=== PATIENT | female | born 1970 | race Caucasian/White ===

== ENCOUNTER 2019-03-09 14:59 | Emergency (ER) | payer MEDICARE, MEDICAID, SELFPAY ==
[2019-03-09 15:02] VITALS: BP 164/102; PULSE 78; RESP 12; TEMP 36.5; O2SAT 100
--- NOTE | 2019-03-09 15:17 | ED.GENADUL_ITS ---
Discharge Plan Disposition Patient Disposition: HOME Condition: Improving Discharge Details Chief Complaint: Orthopedic Clinical Impression: Calcific tendinitis of right shoulder Primary Care Provider: Erwin Vale ED Provider: Pawan Trivedi Home Meds and New Rx's Prescriptions: Continued trazodone 50 mg Tablet 100 mg PO QHS PRNRF: 0 venlafaxine [Effexor XR] 150 mg Capsule,Extended Release 24hr 225 mg PO QPM RF: 0 tramadol 50 mg Tablet 50 mg PO Q6H PRNRF: 0 levothyroxine 100 mcg Tablet 100 mcg PO DAILY RF: 0 carbamazepine 200 mg Tablet 100 mg PO DAILY RF: 0 Discharge Instructions Instructions: Tendinitis (ED) Additional Instructions: Follow-up with physical therapy as planned. Use sling next 3 to 5 days time as needed for comfort. Begin gentle range of motion exercises as we discussed. Apply ice 20 minutes at a time 5-6 times daily. May continue the use of tramadol and Tylenol if needed for pain. Return if develop a fever, redness, swelling or any other acute concerns. Stand Alone Forms: Physical Therapy Referral Medical Decision Making 48-year-old female with right shoulder pain for 5 days time. She woke with this and it is worse with movement as well as in particular abduction. She is tender over the humeral head anterolateral. She is tenderness and pain with the empty can/full can test. Concern for bicipital or other acute tendinitis. Must exclude mass or occult fracture. Patient referred for x-ray which reveals calcific tendinitis. Consented for injection with lidocaine and Kenalog for its anti-inflammatory pro perties. I will refer her to physical therapy. She is stable and improving at this time. HPI General Mode of arrival: ambulatory . Date/Time Provider Initiated Documentation: 03/09/19 15:01 . Limitations to Documentation: no limitations . Information obtained by: patient . History of Present Illness 48 year old F presents to the emergency department with the chief complaint of Right shoulder pain for 5 days, described as moderate, Quality is described as dull, and is localized to the right and upper extremity. Patient distal. Patient started experiencing this day(s) and it has been constant. Rest improves symptom(s), Movement worsens symptoms . Patient notes no other symptoms.; denies chest pain, headaches, rash and shortness of breath. Patient did receive the following treatments prior to arrival, NSAID Related Data Home Medications Medication Instructions Recorded Confirmed carbamazepine 100 mg PO DAILY 03/09/19 03/09/19 levothyroxine 100 mcg PO DAILY 03/09/19 03/09/19 tramadol 50 mg PO Q6H PRN 03/09/19 03/09/19 trazodone 100 mg PO QHS PRN 03/09/19 03/09/19 venlafaxine [Effexor XR] 225 mg PO QPM 03/09/19 03/09/19 Allergies Allergy/AdvReac Type Severity Reaction Status Date / Time sumatriptan [From Imitrex] AdvReac Unverified 03/09/19 15:06 General Stated Complaint: Orthopedic PEACE: 4 Review of Systems Narrative: No fall or injury, no swelling, no chest pain or shortness of breath. No recent travel. Denies rash.'s 8 systems reviewed and otherwise negative [facility] Social History Smoking/Tobacco Use Status: Never Alcohol Intake: never Drug use: Never Substance use type: does not use Do you feel safe at home: Yes Do you feel safe in your relationship?: Yes Exam Narrative Exam Narrative: GEN: awake, alert, oriented 3. Pleasant, well groomed, interactive. HEAD: Normocephalic, atraumatic ENT: Mucous membranes moist, oropharynx unremarkable, External ear exam unremarkable EYES: PERRL, EOMI NECK: Full ROM, no GUS, no menigismus CHEST/RESP: Nontender, clear to auscultation bilateral, no wheeze/rhonchi/rales CARDIOVASCULAR: RRR, no murmur, rub griffin. 2+ Rad pulse bilateral ABDOMEN: Soft, nontender, no mass. +Bowel sounds EXT: Motor is graded 5 out of 5 in the bilateral upper extremity. Motor is limited by pain with abduction of the right shoulder. Pain with palpation proximal humeral head antral and lateral. There is pain with open can/empty can test, empty can test with right hand pronated causes pain. Neuro: Grossly normal neurologic exam, conversant, interactive. Psych: Speech fluent, thoughts congruent, affect normal Course Vital Signs Vital signs: Vital Signs Temperature 36.5 C 03/09/19 15:02 Pulse 78 03/09/19 15:02 Respiratory Rate 12 03/09/19 15:02 Blood Pressure 164/102 H 03/09/19 15:02 Pulse Oximetry 100 03/09/19 15:02 Temperature 36.5 C 03/09/19 15:02 Temperature Source Temporal Artery Scan 03/09/19 15:02 Pulse 78 03/09/19 15:02 Respiratory Rate 12 03/09/19 15:02 Respiratory Effort Non-Labored 03/09/19 15:04 Blood Pressure 164/102 H 03/09/19 15:02 Blood Pressure Position Sitting 03/09/19 15:02 Pulse Oximetry 100 03/09/19 15:02 Oxygen Delivery Method Room Air 03/09/19 15:02 Oxygen Flow Rate 0 03/09/19 15:02 Pain Level 5 03/09/19 15:02
--- NOTE | 2019-03-09 15:42 | DI.RAD_ITS ---
EXAM: XR SHOULDER RT COMPLETE 2+V INDICATION: anterolateral pain. COMPARISON: No exams were available for comparison TECHNIQUE: 2D digital imaging was performed. FINDINGS: No acute fracture or dislocation is present. Mild degenerative changes are seen at the acromioclavic ular joint. Calcifications are seen in the soft tissues adjacent to the greater tuberosity likely re flecting calcific tendinitis. Soft tissues are otherwise unremarkable. IMPRESSION: No acute abnormality.
[2019-03-09] MEDS: Triamcinolone 40 MG/ML VIAL IM (15:56)
[2019-03-09 16:00] VITALS: BP 135/75; PULSE 74; RESP 16; TEMP 36.8; O2SAT 99
== END 2019-03-09 16:05 | disposition home or self-care (01) ==
PROVIDERS: Emergency Provider Emergency Medicine; PCP Family Medicine
DX: M75.31 Calcific tendinitis of right shoulder (principal)
CPT/HCPCS: 96372; 99284; 73030; L3650

== ENCOUNTER 2019-03-27 16:00 | Outpatient (REF) | payer MEDICARE, MEDICAID, SELFPAY ==
--- NOTE | 2019-03-27 14:30 | PAPFT_PTH ---
PATIENT: Erin Whitmore LOC: [facility] U#:[id number] AGE/SX: 48/F ROOM: RE03/27/[address]: Erwin Vale MD : 1970 BED: DIS: 03/27/2019 SPEC #: [id number] RECD: 03/27/19 18:39 STATUS: EMIL REQ #: [id number] MILANA: 03/27/19 14:[address]: Erwin Vale DEPT: [facility] Cytology RECD BY: Martha Stern Tissues: 1 - CX/ENDOCX FOR PAP SMEARS Procedures: PAP THIN PREP/UVM Screening HPV DNA PROBE Comments: [id number]
== END 2019-03-27 16:20 ==
LOC: LBN 16:00
PROVIDERS: PCP Family Medicine; Visit Provider Family Medicine
DX: Z12.4 Encounter for screening for malignant neoplasm of cervix (principal)
CPT/HCPCS: 88142; 87624

== ENCOUNTER → 2019-05-13 08:36 | Outpatient (BNVA) | payer MEDICARE, MEDICAID, SELFPAY | PROVIDERS: PCP Family Medicine; Referring Provider Family Medicine; Visit Provider Student in an Organized Health Care Education/Training Program | DX: M75.31 Calcific tendinitis of right shoulder (principal); M75.21 Bicipital tendinitis, right shoulder; M75.51 Bursitis of right shoulder; M75.41 Impingement syndrome of right shoulder; I10 Essential (primary) hypertension | CPT/HCPCS: 99204; 99214 ==

== ENCOUNTER 2019-05-14 10:22 | Outpatient (REF) | payer MEDICARE, MEDICAID, SELFPAY ==
[2019-05-18 12:03] LABS: 2-Hydroxy Ethyl Flurazepam Not Detected ng/mL (Cutoff: 10); 6-monoacetylmorphine Not Detected ng/mL (Cutoff: 25); Alpha-Hydroxy Midazolam Not Detected ng/mL (Cutoff: 10); Alpha-Hydroxy Triazolam Not Detected ng/mL (Cutoff: 10); Alpha-Hydroxyalprazolam Not Detected ng/mL (Cutoff: 10); Alpha-OH-alprazolam Glucuronid Not Detected ng/mL (Cutoff: 50); Alprazolam Not Detected ng/mL (Cutoff: 10); Amphetamines Negative ng/mL (Cutoff: 500); Barbiturates Negative ng/mL (Cutoff: 200); Buprenorphine Not Detected ng/mL (Cutoff: 5); Chlordiazepoxide Not Detected ng/mL (Cutoff: 10); Clobazam Not Detected ng/mL (Cutoff: 10); Clonazepam Not Detected ng/mL (Cutoff: 10); Cocaine Negative ng/mL (Cutoff: 150); Codeine Not Detected ng/mL (Cutoff: 25); Comment Normal; Diazepam Not Detected ng/mL (Cutoff: 10); Dihydrocodeine Not Detected ng/mL (Cutoff: 25); EDDP Not Detected ng/mL (Cutoff: 25); Fentanyl Not Detected ng/mL (Cutoff: 2); Flurazepam Not Detected ng/mL (Cutoff: 10); Hydrocodone Not Detected ng/mL (Cutoff: 25); Hydromorphone Not Detected ng/mL (Cutoff: 25); Hydromorphone-3-beta-glucuroni Not Detected ng/mL (Cutoff: 100); Lorazepam Not Detected ng/mL (Cutoff: 10); Lorazepam Glucuronide Not Detected ng/mL (Cutoff: 50); Meperidine Not Detected ng/mL (Cutoff: 25); Methadone Not Detected ng/mL (Cutoff: 25); Midazolam Not Detected ng/mL (Cutoff: 10); Morphine Not Detected ng/mL (Cutoff: 25); N-Desmethylclobazam Not Detected ng/mL (Cutoff: 200); N-desmethyltapentadol Not Detected ng/mL (Cutoff: 50); Naloxone Not Detected ng/mL (Cutoff: 25); Norfentanyl Not Detected ng/mL (Cutoff: 2); Norhydrocodone Not Detected ng/mL (Cutoff: 25); Normeperidine Not Detected ng/mL (Cutoff: 25); Noroxycodone Not Detected ng/mL (Cutoff: 25); Noroxymorphone Not Detected ng/mL (Cutoff: 25); O-desmethyltramadol Not Detected ng/mL (Cutoff: 25); Oxazepam Glucuronide Not Detected ng/mL (Cutoff: 50); Phencyclidine Negative ng/mL (Cutoff: 25); Prazepam Not Detected ng/mL (Cutoff: 10); Propoxyphene Not Detected ng/mL (Cutoff: 25); Specific Gravity 1.014; Tapentadol Not Detected ng/mL (Cutoff: 25); Temazepam Not Detected ng/mL (Cutoff: 10); Temazepam Glucuronide Not Detected ng/mL (Cutoff: 50); Tetrahydrocannabinol Negative ng/mL (Cutoff: 50); Tramadol Not Detected ng/mL (Cutoff: 25); Triazolam Not Detected ng/mL (Cutoff: 10); Zolpidem Phenyl-4-Carboxy acid Not Detected ng/mL (Cutoff: 10); pH 6.9
== END 2019-05-14 10:42 ==
LOC: NCHCN 10:22
PROVIDERS: PCP Family Medicine; Visit Provider Nurse Practitioner Family
DX: G89.29 Other chronic pain (principal); Z79.891 Long term (current) use of opiate analgesic
CPT/HCPCS: 80307; 80347; 80364

== ENCOUNTER 2019-05-22 03:49 | Outpatient (CLI) | payer MEDICARE, MEDICAID, SELFPAY ==
--- NOTE | 2019-05-22 08:30 | DI.MRI_ITS ---
EXAM: MR UPPER JOINT RT WO CLINICAL HISTORY: LONG HEAD BICEPS TENDINITIS. CALCIFIC TENDINITIS. FAILED CONSERVATIVE TREATMENT, BURSITIS, IMPINGEMENT SYNDROME, M75.51, M75.31, M75.41, M75.21. TECHNIQUE: Multiplanar multisequence MRI was performed. COMPARISON: No exams were available for comparison FINDINGS: There is intermediate signal seen within the supraspinatus tendon. This may represent tendinosis or a partial tear. There is intermediate signal seen within the infraspinatus tendon, which may represent tendinosis or partial tear. The subscapularis and teres minor tendons are unremarkable. Degenerative changes seen at the acromioclavicular joint. Rotator cuff muscles show normal signal an d size. No significant muscular fatty atrophy is present. There is intermediate signal seen in the biceps tendon suggesting tendinosis. There is some thinning of the tendon in the bicipital groove. Labrum is grossly unremarkable on this noncontrast examination. The glenohumeral joint is unremarkable. Mild degenerative signal changes are seen at the acromioclavicular joint. There is no evidence of an occult fracture or avascular necrosis. There is increased signal seen within the subacromial bursa suspicious for bursitis. No soft tissue mass is appreciated. The coracoclavicular ligament is intact. IMPRESSION: 1. Abnormal signal seen within the supraspinatus and infraspinatus tendons suspicious for tendinosis or partial tear. 2. Flattening and intermediate signal seen within the biceps tendon, which may represent tendinosis. 3. Degenerative changes at the AC joint. Findings suspicious for subacromial bursitis.
== END 2019-05-22 04:09 ==
PROVIDERS: PCP Family Medicine; Visit Provider Student in an Organized Health Care Education/Training Program
DX: M75.81 Other shoulder lesions, right shoulder (principal); M75.22 Bicipital tendinitis, left shoulder; M19.011 Primary osteoarthritis, right shoulder; M75.51 Bursitis of right shoulder
CPT/HCPCS: 73221

== ENCOUNTER 2019-06-01 14:40 | Emergency (ER) | payer MEDICARE, MEDICAID, SELFPAY ==
[2019-06-01 14:53] VITALS: BP 147/72; PULSE 73; RESP 16; TEMP 36.5; O2SAT 99
--- NOTE | 2019-06-01 15:15 | DI.RAD_ITS ---
EXAM: XR HEEL RT OS CALCIS CLINICAL HISTORY: r/o fracture vs spur vs foreign body TECHNIQUE: COMPARISON: No exams were available for comparison FINDINGS: Two views were obtained. There is and osteophyte at the site of attachment of the Achilles tendon on the calcaneus. No other bony or soft tissue abnormality seen. IMPRESSION:
--- NOTE | 2019-06-01 15:19 | W.ED.GENAD ---
Discharge Plan Disposition Patient Disposition: HOME Condition: Stable Discharge Details Chief Complaint: Orthopedic Clinical Impression: Heel spur Primary Care Provider: Antonieta Ramirez ED Provider: Jessa Norwood Home Meds and New Rx's Prescriptions: Continued venlafaxine [Effexor XR] 150 mg capsule,extended release 24hr 300 mg PO DAILY RF: 0 levothyroxine 50 mcg capsule 50 mcg PO DAILY Qty: 90 RF: 3 tramadol 50 mg tablet 50 mg PO QID MDD 4 tablets/day PRN (Reason: pain) 28 Days Qty: 112 RF: 0 trazodone 150 mg tablet 300 mg PO QHS RF: 0 carbamazepine 200 mg capsule, ER multiphase 12 hr 400 mg PO BID RF: 0 ibuprofen 800 mg tablet 800 mg PO Q8H PRN (Reason: pain) Qty: 90 RF: 2 Discharge Instructions Instructions: Heel Spur (ED) Additional Instructions: Rest, ice, and elevate the affected area as much as possible. Alternate tylenol and motrin as needed and directed for pain. Follow-up with your primary care doctor in 1 week. Follow-up with your scheduled appointment with the machine fur cleaner Dr. Verduzco in July. You will receive a call from care management who will attempt to get you an earlier appointment with Dr. Verduzco if possible. Return to the emergency department with any worsening or new concerning symptoms. Referrals: Javier Verduzco DPM [[facility] STAFF PHYSICIAN] - Discharge Data Discharge Physician: Jessa Norwood Medical Decision Making 48-year-old female presents with right heel pain for the past few weeks. She states she fell on ice a few weeks ago and has had right heel pain since then. She states she is having difficulty weightbearing on her heel due to pain. She does have a history of plantar fasciitis in her left heel but states this feels different from that. She denies any ankle pain. She states the pain is not worse first thing in the morning. Right foot and ankle are normal to inspection. She has mild tenderness palpation of right heel. She is neurovascular intact. Patient declined pain medication here. A right heel x-ray noted a bone spur. Discussed with patient that this could be the source of her pain or a contusion or sprain. She was advised on the importance of rice. She has an appointment with Dr. Verduzco in July. Patient was placed on care management list to arrange for earlier follow-up appointment if possible. She was advised to purchase [id number] cushioning for support on her heel in addition to a cane to help with reducing weightbearing on her heel. Medical Records Medical records reviewed: Yes I reviewed the patient's medical records. Imaging Data Radiologic Study: Radiologist's impression: XR HEEL RT OS CALCIS CLINICAL HISTORY: r/o fracture vs spur vs foreign body TECHNIQUE: COMPARISON: No exams were available for comparison FINDINGS: Two views were obtained. There is and osteophyte at the site of attachment of the Achilles tendon on the calcaneus. No other bony or soft tissue abnormality seen. HPI General Mode of arrival: ambulatory. Date/Time Provider Initiated Documentation: 06/01/19 15:08. Limitations to Documentation: no limitations. Information obtained by: patient. History of Present Illness 48 year old F presents to the emergency department with the chief complaint of R heel pain , Quality is described as stabbing and aching, Patient reports no radiation. Patient started experiencing this week(s) (3) and it has been constant. Rest improves symptom(s), Other factors that worsen symptoms (weight bearing on heel) . Patient notes no other symptoms.. Patient did receive the following treatments prior to arrival, none Related Data Home Medications Medication Instructions Recorded Confirmed levothyroxine 50 mcg capsule 50 mcg PO DAILY #90 cap 03/27/19 06/01/19 carbamazepine 200 mg 400 mg PO BID cap 04/15/19 06/01/19 capsule,extended release [id number] venlafaxine 150 mg 300 mg PO DAILY cap 04/15/19 06/01/19 capsule,extended release 24 hr ibuprofen 800 mg tablet 800 mg PO Q8H PRN #90 tab 04/17/19 06/01/19 tramadol 50 mg tablet 50 mg PO QID PRN 28 Days #112 tab 05/14/19 06/01/19 MDD 4 tablets/day trazodone 150 mg tablet 300 mg PO QHS tab 05/27/19 06/01/19 Previous Rx's Medication Instructions Recorded levothyroxine 50 mcg capsule 50 mcg PO DAILY #90 cap 03/27/19 ibuprofen 800 mg tablet 800 mg PO Q8H PRN #90 tab 04/17/19 tramadol 50 mg tablet 50 mg PO QID PRN 28 Days #112 tab 05/14/19 MDD 4 tablets/day Allergies Allergy/AdvReac Type Severity Reaction Status Date / Time gabapentin AdvReac Mild Unverified 06/01/19 14:57 sumatriptan [From Imitrex] AdvReac Verified 06/01/19 14:57 General Stated Complaint: Orthopedic PEACE: 3 Review of Systems All systems reviewed & are unremarkable except as noted in HPI and below PFSH Medical History Bipolar disorder, unspecified (Acute) Cryptogenic sensory polyneuropathy (Acute) History of gastrectomy (Acute) 07/2013 Hypertension (Chronic) Hypothyroid (Chronic) Insomnia (Acute) Plantar fasciitis (Acute) Polycystic ovarian disease (Acute) Sleep apnea (Acute) Urinary incontinence (Acute) Surgical History H/O arthroscopy of knee (Acute) 2000 H/O exploratory laparotomy (Acute) 1987 S/P cholecystectomy (Acute) 2000 S/P endoscopy (Acute) 2012 S/P gastric bypass (Acute) Laparoscopic sleeve S/P removal of ovarian cyst (Acute) S/P tubal ligation (Acute) 1992 Family History Mother Alcohol abuse Depression Diabetes Hypertension Father Alcohol abuse Cancer Heart disease Hypertension Sister Alcohol abuse Depression Hypertension Substance abuse Brother Alcohol abuse Substance abuse Brother No problems noted. Brother Depression Son No problems noted. Daughter Alcohol abuse Depression Substance abuse Social History Smoking/Tobacco Use Status: Former Tobacco Use Tobacco: How many years used: 6 Second Hand Exposure: Yes Alcohol Intake: never Drug use: Never Substance use type: does not use Caregiver/Support person: No Household members: family Housing: apartment Communication Needs: None Do you need help understanding health information?: Rarely Pets and animals: Yes Pets and animals: dog(s) Sexually active: Yes Do you think of yourself as: straight/heterosexual Current gender identity: female What is your relationship status?: How often do you talk on the phone with friends or family?: three or more times per week How often do you get together with friends or relatives?: three or more times per week How often do you attend methodist or jainism services?: decline to answer Do you belong to any clubs or organized social groups?: no Panel score (0-1 are the most socially isolated patients): 1 What type of physical activity do you participate in: none Frequency: does not exercise Renea/Protestant: Lutheran Special renea needs: No Seatbelt use: always Helmet use: Yes Helmet use: always Drive intox or ride w/intox wrecker driver: No Do you feel safe at home: Yes Do you feel safe in your relationship?: Yes Exam Const General: cooperative, healthy appearing and no acute distress HENMT Head: normal to inspection Mouth: oral mucosae normal Eyes General: appearance normal, both eyes and all related structures Neck Neck: normal visual inspection Resp Effort & Inspection: normal respiratory effort and able to speak in complete sentences Cardio Rate: regular rate Skin General skin exam: no rashes or lesions noted Neuro General: alert, awake and oriented x3 Motor: muscle tone normal throughout Extrem General: normal to inspection and full ROM Other: Minimal tenderness to palpation of right heel. Right heel appears normal to inspection without edema, erythema, ecchymosis, lesions, rash or evidence of trauma. Right DP and PT pulses intact. No tenderness to palpation of right ankle. Right ankle and foot normal to inspection. No deformities noted. Psych Appearance: grossly normal Affect: normal affect Course Vital Signs Vital signs: Vital Signs Temperature 97.7 F 06/01/19 14:53 Pulse 73 06/01/19 14:53 Respiratory Rate 16 06/01/19 14:53 Blood Pressure 147/72 H 06/01/19 14:53 Pulse Oximetry 99 06/01/19 14:53 Temperature 97.7 F 06/01/19 14:53 Temperature Source Skin 06/01/19 14:53 Pulse 73 06/01/19 14:53 Respiratory Rate 16 06/01/19 14:53 Respiratory Effort 06/01/19 14:57 Blood Pressure 147/72 H 06/01/19 14:53 Blood Pressure Position Sitting 06/01/19 14:53 Pulse Oximetry 99 06/01/19 14:53 Oxygen Delivery Method Room Air 06/01/19 14:53 Oxygen Flow Rate 0 06/01/19 14:53 Pain Level 8 06/01/19 14:53 Comment 06/01/19 14:53
== END 2019-06-01 16:20 | disposition home or self-care (01) ==
PROVIDERS: Emergency Provider Physician Assistant; PCP Nurse Practitioner Family
DX: M77.31 Calcaneal spur, right foot (principal); W00.0XXA Fall on same level due to ice and snow, initial encounter; I10 Essential (primary) hypertension
CPT/HCPCS: 99283; 73650

== ENCOUNTER → 2019-06-03 08:33 | Outpatient (BNVA) | payer MEDICARE, MEDICAID, SELFPAY | PROVIDERS: PCP Nurse Practitioner Family; Referring Provider Family Medicine; Visit Provider Student in an Organized Health Care Education/Training Program | DX: M75.31 Calcific tendinitis of right shoulder (principal); M75.21 Bicipital tendinitis, right shoulder; M75.51 Bursitis of right shoulder; M75.41 Impingement syndrome of right shoulder | CPT/HCPCS: 20610; 99214; J1030 ==

== ENCOUNTER → 2019-06-17 10:21 | Outpatient (BNVA) | payer MEDICARE, MEDICAID, SELFPAY | PROVIDERS: PCP Nurse Practitioner Family; Referring Provider Nurse Practitioner Family; Visit Provider Nurse Practitioner Gerontology | DX: N39.42 Incontinence without sensory awareness (principal); I10 Essential (primary) hypertension | CPT/HCPCS: 81003; 99204; 99215 ==

== ENCOUNTER 2019-08-24 08:26 | Outpatient (REF) | payer MEDICARE, MEDICAID, SELFPAY ==
[2019-08-28 02:08] LABS: 2-Hydroxy Ethyl Flurazepam Not Detected ng/mL (Cutoff: 10); 6-monoacetylmorphine Not Detected ng/mL (Cutoff: 25); Alpha-Hydroxy Midazolam Not Detected ng/mL (Cutoff: 10); Alpha-Hydroxy Triazolam Not Detected ng/mL (Cutoff: 10); Alpha-Hydroxyalprazolam Not Detected ng/mL (Cutoff: 10); Alpha-OH-alprazolam Glucuronid Not Detected ng/mL (Cutoff: 50); Alprazolam Not Detected ng/mL (Cutoff: 10); Amphetamines Negative ng/mL (Cutoff: 500); Barbiturates Negative ng/mL (Cutoff: 200); Buprenorphine Not Detected ng/mL (Cutoff: 5); Chlordiazepoxide Not Detected ng/mL (Cutoff: 10); Clobazam Not Detected ng/mL (Cutoff: 10); Clonazepam Not Detected ng/mL (Cutoff: 10); Cocaine Negative ng/mL (Cutoff: 150); Codeine Not Detected ng/mL (Cutoff: 25); Comment Normal; Creatinine, U 119.7 mg/dL; Diazepam Not Detected ng/mL (Cutoff: 10); Dihydrocodeine Not Detected ng/mL (Cutoff: 25); EDDP Not Detected ng/mL (Cutoff: 25); Fentanyl Not Detected ng/mL (Cutoff: 2); Flurazepam Not Detected ng/mL (Cutoff: 10); Hydrocodone Not Detected ng/mL (Cutoff: 25); Hydromorphone Not Detected ng/mL (Cutoff: 25); Hydromorphone-3-beta-glucuroni Not Detected ng/mL (Cutoff: 100); Lorazepam Not Detected ng/mL (Cutoff: 10); Lorazepam Glucuronide Not Detected ng/mL (Cutoff: 50); Meperidine Not Detected ng/mL (Cutoff: 25); Methadone Not Detected ng/mL (Cutoff: 25); Midazolam Not Detected ng/mL (Cutoff: 10); Morphine Not Detected ng/mL (Cutoff: 25); N-Desmethylclobazam Not Detected ng/mL (Cutoff: 200); N-desmethyltapentadol Not Detected ng/mL (Cutoff: 50); Naloxone Not Detected ng/mL (Cutoff: 25); Norfentanyl Not Detected ng/mL (Cutoff: 2); Norhydrocodone Not Detected ng/mL (Cutoff: 25); Normeperidine Not Detected ng/mL (Cutoff: 25); Noroxycodone Not Detected ng/mL (Cutoff: 25); Noroxymorphone Not Detected ng/mL (Cutoff: 25); O-desmethyltramadol Present ng/mL (Cutoff: 25); Oxazepam Glucuronide Not Detected ng/mL (Cutoff: 50); Phencyclidine Negative ng/mL (Cutoff: 25); Prazepam Not Detected ng/mL (Cutoff: 10); Propoxyphene Not Detected ng/mL (Cutoff: 25); Tapentadol Not Detected ng/mL (Cutoff: 25); Temazepam Not Detected ng/mL (Cutoff: 10); Temazepam Glucuronide Not Detected ng/mL (Cutoff: 50); Tetrahydrocannabinol Negative ng/mL (Cutoff: 50); Tramadol Present ng/mL (Cutoff: 25); Triazolam Not Detected ng/mL (Cutoff: 10); Zolpidem Phenyl-4-Carboxy acid Not Detected ng/mL (Cutoff: 10); pH 8.4
== END 2019-08-24 08:46 ==
LOC: LBN 08:26
PROVIDERS: PCP Family Medicine; Visit Provider Nurse Practitioner Family
DX: G89.29 Other chronic pain (principal); Z79.891 Long term (current) use of opiate analgesic
CPT/HCPCS: 80307; 80347; 80364

== ENCOUNTER 2019-09-01 09:36 | Outpatient (CLI) | payer MEDICARE, MEDICAID, SELFPAY ==
--- NOTE | 2019-09-01 08:00 | DI.RAD_ITS ---
EXAM: XR SHOULDER LT COMPLETE 2+V CLINICAL HISTORY: true ap and axillary left shoulder TECHNIQUE: 2D digital imaging was performed. COMPARISON: No exams were available for comparison FINDINGS: There is some spurring at the tip of the acromion. The glenohumeral joint space is well maintained. There is minimal spurring at the glenoid. Humeral head is normally positioned. No tendon or joint space calcifications are seen. IMPRESSION: Mild degenerative changes.
== END 2019-09-01 09:56 ==
PROVIDERS: PCP Family Medicine; Referring Provider Family Medicine; Visit Provider Student in an Organized Health Care Education/Training Program
DX: M25.512 Pain in left shoulder (principal); M19.012 Primary osteoarthritis, left shoulder
CPT/HCPCS: 20610; 99214; 73030; J1030

== ENCOUNTER 2019-09-25 03:40 | Outpatient (CLI) | payer MEDICARE, MEDICAID, SELFPAY ==
[2019-09-25 08:06] LABS: Abs Immature Grans 0.01 k/cumm (0.0-0.09); Absolute Basophil Count 0.03 k/cumm (0.0-0.2); Absolute Eosinophil Count 0.16 k/cumm (0.0-0.7); Absolute Lymphocyte Count 2.03 k/cumm (1.2-3.4); Absolute Monocyte Count 0.55 k/cumm (0.11-0.7); Absolute Neutrophil Count 2.91 k/cumm (1.2-6.7); Basophils % 0.5; Eosinophils % 2.8; HCT 39.8 % (36.0-46.0); HGB 13.4 g/dL (12.0-15.5); Immature Grans % 0.2 %; Lymphocytes % 35.7; Mean Corp. HGB Concentration 33.7 g/dL (32.0-36.0); Mean Corpuscular Hemoglobin 30.5 pg (27.0-33.0); Mean Corpuscular Volume 90.5 fL (80-95); Mean Platelet Volume 10.2 fL (8.0-11.0); Monocytes % 9.7; Neutrophils % 51.1; Platelet Count 249 x1000/uL (130-400); RBC Distribution Width 12.8 % (11.7-14.6); White Blood Cell Count 5.69 k/cumm (4.4-10.8)
[2019-09-25 08:33] LABS: ALT 21 U/L (14-59); AST 16 U/L (15-37); Albumin 3.5 g/dL (3.4-5.0); Alkaline Phosphatase 108 U/L (46-116); Anion Gap 6.1 mmol/L (3-11); BUN 14 mg/dL (7-18); Bilirubin, Total 0.2 mg/dL (0.2-1.0); CO2 30.9 mmol/L (21.0-32.0); CREATININE 0.73 mg/dL (0.55-1.02); Calcium 8.8 mg/dL (8.5-10.1); Chloride 103 mmol/L (98-107); Glucose 81 mg/dL (74-106); Potassium 3.7 mmol/L (3.5-5.1); Sodium 140 mmol/L (136-145); Total Protein 7.2 g/dL (6.4-8.2)
[2019-09-25 08:39] LABS: Hemoglobin A1C 5.4 % (3.8-5.6)
[2019-09-25 09:07] LABS: FREE T4 0.61 ng/dL (0.76-1.46)
[2019-09-25 11:59] LABS: Calculated LDL 136 mg/dL (<100); Cholesterol 244 mg/dL (<200); HDL Cholesterol 92 mg/dL (40-60); TROPONIN-I 9.5 ug/mL (4.0-12.0); Triglyceride 82 mg/dL (<150)
== END 2019-09-25 04:00 ==
PROVIDERS: Nurse Practitioner Family; PCP Nurse Practitioner Family; Visit Provider Nurse Practitioner Family
DX: E55.9 Vitamin D deficiency, unspecified (principal); E03.9 Hypothyroidism, unspecified; E78.5 Hyperlipidemia, unspecified; F31.9 Bipolar disorder, unspecified; Z51.81 Encounter for therapeutic drug level monitoring; Z79.899 Other long term (current) drug therapy; E66.9 Obesity, unspecified
CPT/HCPCS: 36415; 80053; 80061; 82306; 80156; 83036; 84439; 84443; 85025

== ENCOUNTER 2019-11-16 07:05 | Outpatient (CLI) | payer MEDICARE, MEDICAID, SELFPAY ==
[2019-11-16 07:40] LABS: Abs Immature Grans 0.02 10^3/uL (0.0-0.06); Absolute Basophil Count 0.03 10^3/uL (0.0-0.2); Absolute Eosinophil Count 0.16 10^3/uL (0.0-0.7); Absolute Lymphocyte Count 2.12 10^3/uL (1.2-3.4); Absolute Monocyte Count 0.58 10^3/uL (0.1-0.8); Absolute Neutrophil Count 2.74 10^3/uL (1.2-6.7); Basophils % 0.5; Eosinophils % 2.8; HCT 39.6 % (36.0-46.0); HGB 13.1 g/dL (11.2-15.7); Immature Grans % 0.4; Lymphocytes % 37.5; MCH 30.5 pg (27.0-33.0); MCHC 33.1 % (32.0-36.0); MCV 92.1 fL (80-95); MPV 10.5 fL (8.0-11.0); Monocytes % 10.3; Neutrophils % 48.5; Nucleated RBC 0 %; Platelet Count 275 10^3/uL (130-400); RDW 12.8 % (11.7-14.6); RDW-SD 42.8 fL; WBC 5.65 10^3/uL (4.4-10.8)
[2019-11-16 08:24] LABS: ALT 21 U/L (14-59); AST 16 U/L (15-37); Albumin 3.4 g/dL (3.4-5.0); Alkaline Phosphatase 102 U/L (46-116); Anion Gap 10.8 mmol/L (3-11); BUN 11 mg/dL (7-18); Bilirubin, Total 0.3 mg/dL (0.2-1.0); CO2 28.2 mmol/L (21.0-32.0); Calcium 8.6 mg/dL (8.5-10.1); Chloride 104 mmol/L (98-107); Glucose 88 mg/dL (74-106); Potassium 3.7 mmol/L (3.5-5.1); Sodium 143 mmol/L (136-145); TROPONIN-I 9.8 ug/mL (4.0-12.0); TSH 4.35 uIU/mL (0.36-3.74); Total Protein 6.8 g/dL (6.4-8.2)
== END 2019-11-16 07:25 ==
PROVIDERS: PCP Nurse Practitioner Family; Visit Provider Nurse Practitioner Family
DX: F31.9 Bipolar disorder, unspecified (principal); Z79.899 Other long term (current) drug therapy; Z51.81 Encounter for therapeutic drug level monitoring; E03.9 Hypothyroidism, unspecified
CPT/HCPCS: 36415; 80053; 80156; 84443; 85025

== ENCOUNTER 2019-12-02 00:55 | Outpatient (CLI) | payer MEDICARE, MEDICAID, SELFPAY ==
--- NOTE | 2019-12-02 08:24 | DI.MAMMO_ITS ---
EXAM: MAMMO SCREENING CLINICAL HISTORY: screening,Z12.39 TECHNIQUE: Mammograms were interpreted according to the usual protocol including computer analysis w [employer] CAD system, tomosynthesis and C-view imaging. COMPARISON: FINDINGS: The breasts are of moderate density with fairly symmetrical distribution of fibroglandular tissue. N o dominant mass or clumped microcalcification is identified in either breast. Current examination is compared with previous examinations including September 2018 and there has been no gross interval change in appearance in comparison with previous studies. IMPRESSION: No specific evidence of malignancy at this time. Routine screening examinations are suggested at ye jenny intervals in this age group according to the ACS ACR guidelines. BI-RADS Cat 1 - Negative Breast Density - Category B - Scattered areas of fibroglandular density
== END 2019-12-02 01:15 ==
PROVIDERS: PCP Nurse Practitioner Family; Visit Provider Nurse Practitioner Family
DX: Z12.31 Encounter for screening mammogram for malignant neoplasm of breast (principal)
CPT/HCPCS: 77063; 77067

== ENCOUNTER 2019-12-18 02:44 | Outpatient (CLI) | payer MEDICARE, MEDICAID, SELFPAY ==
[2019-12-18 09:50] LABS: TSH (W/Ref FT4) 3.94 uIU/mL (0.36-3.74)
[2019-12-18 10:12] LABS: FREE T4 0.63 ng/dL (0.76-1.46)
== END 2019-12-18 03:04 ==
PROVIDERS: PCP Nurse Practitioner Family; Visit Provider Nurse Practitioner Family
DX: E03.9 Hypothyroidism, unspecified (principal)
CPT/HCPCS: 36415; 84439; 84443

== ENCOUNTER 2019-12-21 09:34 | Outpatient (REF) | payer MEDICARE, MEDICAID, SELFPAY ==
[2019-12-26 15:54] LABS: 2-Hydroxy Ethyl Flurazepam Not Detected ng/mL (Cutoff: 10); 6-monoacetylmorphine Not Detected ng/mL (Cutoff: 25); Alpha-Hydroxy Midazolam Not Detected ng/mL (Cutoff: 10); Alpha-Hydroxy Triazolam Not Detected ng/mL (Cutoff: 10); Alpha-Hydroxyalprazolam Not Detected ng/mL (Cutoff: 10); Alpha-OH-alprazolam Glucuronid Not Detected ng/mL (Cutoff: 50); Alprazolam Not Detected ng/mL (Cutoff: 10); Amphetamines Negative ng/mL (Cutoff: 500); Barbiturates Negative ng/mL (Cutoff: 200); Buprenorphine Not Detected ng/mL (Cutoff: 5); Chlordiazepoxide Not Detected ng/mL (Cutoff: 10); Clobazam Not Detected ng/mL (Cutoff: 10); Clonazepam Not Detected ng/mL (Cutoff: 10); Cocaine Negative ng/mL (Cutoff: 150); Codeine Not Detected ng/mL (Cutoff: 25); Comment Normal; Creatinine, U 203.5 mg/dL; Diazepam Not Detected ng/mL (Cutoff: 10); Dihydrocodeine Not Detected ng/mL (Cutoff: 25); EDDP Not Detected ng/mL (Cutoff: 25); Fentanyl Not Detected ng/mL (Cutoff: 2); Flurazepam Not Detected ng/mL (Cutoff: 10); Hydrocodone Not Detected ng/mL (Cutoff: 25); Hydromorphone Not Detected ng/mL (Cutoff: 25); Hydromorphone-3-beta-glucuroni Not Detected ng/mL (Cutoff: 100); Lorazepam Not Detected ng/mL (Cutoff: 10); Lorazepam Glucuronide Not Detected ng/mL (Cutoff: 50); Meperidine Not Detected ng/mL (Cutoff: 25); Methadone Not Detected ng/mL (Cutoff: 25); Midazolam Not Detected ng/mL (Cutoff: 10); Morphine Not Detected ng/mL (Cutoff: 25); N-Desmethylclobazam Not Detected ng/mL (Cutoff: 200); N-desmethyltapentadol Not Detected ng/mL (Cutoff: 50); Naloxone Not Detected ng/mL (Cutoff: 25); Norhydrocodone Not Detected ng/mL (Cutoff: 25); Normeperidine Not Detected ng/mL (Cutoff: 25); Noroxycodone Not Detected ng/mL (Cutoff: 25); Noroxymorphone Not Detected ng/mL (Cutoff: 25); O-desmethyltramadol Present ng/mL (Cutoff: 25); Oxazepam Glucuronide Not Detected ng/mL (Cutoff: 50); Phencyclidine Negative ng/mL (Cutoff: 25); Prazepam Not Detected ng/mL (Cutoff: 10); Propoxyphene Not Detected ng/mL (Cutoff: 25); Specific Gravity 1.011; Tapentadol Not Detected ng/mL (Cutoff: 25); Temazepam Not Detected ng/mL (Cutoff: 10); Temazepam Glucuronide Not Detected ng/mL (Cutoff: 50); Tetrahydrocannabinol Negative ng/mL (Cutoff: 50); Tramadol Present ng/mL (Cutoff: 25); Triazolam Not Detected ng/mL (Cutoff: 10); Zolpidem Phenyl-4-Carboxy acid Not Detected ng/mL (Cutoff: 10); pH 7.3
== END 2019-12-21 09:54 ==
LOC: LBN 09:34
PROVIDERS: PCP Nurse Practitioner Family; Visit Provider Nurse Practitioner Family
DX: Z79.891 Long term (current) use of opiate analgesic (principal)
CPT/HCPCS: 80307; 80347; 80364

== ENCOUNTER 2020-01-13 01:21 | Outpatient (CLI) | payer MEDICARE, MEDICAID, SELFPAY | END 2020-01-13 01:41 | PROVIDERS: PCP Nurse Practitioner Family; Visit Provider Nurse Practitioner Family | DX: F31.9 Bipolar disorder, unspecified (principal); Z79.899 Other long term (current) drug therapy; E03.9 Hypothyroidism, unspecified | CPT/HCPCS: 36415; 84443 ==

== ENCOUNTER → 2020-03-01 10:04 | Outpatient (BNVA) | payer MEDICARE, MEDICAID, SELFPAY | PROVIDERS: PCP Nurse Practitioner Family; Referring Provider Nurse Practitioner Family; Visit Provider Student in an Organized Health Care Education/Training Program | DX: M75.31 Calcific tendinitis of right shoulder (principal); M75.21 Bicipital tendinitis, right shoulder; M75.51 Bursitis of right shoulder; M75.41 Impingement syndrome of right shoulder; M75.42 Impingement syndrome of left shoulder; M75.22 Bicipital tendinitis, left shoulder; M75.52 Bursitis of left shoulder | CPT/HCPCS: 99213 ==

== ENCOUNTER 2020-03-15 08:55 | Outpatient (REF) | payer MEDICARE, MEDICAID, SELFPAY ==
[2020-03-17 13:55] LABS: 2-Hydroxy Ethyl Flurazepam Not Detected ng/mL (Cutoff: 10); 6-monoacetylmorphine Not Detected ng/mL (Cutoff: 25); Alpha-Hydroxy Midazolam Not Detected ng/mL (Cutoff: 10); Alpha-Hydroxy Triazolam Not Detected ng/mL (Cutoff: 10); Alpha-Hydroxyalprazolam Not Detected ng/mL (Cutoff: 10); Alpha-OH-alprazolam Glucuronid Not Detected ng/mL (Cutoff: 50); Alprazolam Not Detected ng/mL (Cutoff: 10); Amphetamines Presumptive Positive ng/mL (Cutoff: 500); Barbiturates Negative ng/mL (Cutoff: 200); Buprenorphine Not Detected ng/mL (Cutoff: 5); Chlordiazepoxide Not Detected ng/mL (Cutoff: 10); Clobazam Not Detected ng/mL (Cutoff: 10); Clonazepam Not Detected ng/mL (Cutoff: 10); Cocaine Negative ng/mL (Cutoff: 150); Codeine Not Detected ng/mL (Cutoff: 25); Comment Normal; Creatinine, U 262.6 mg/dL; Diazepam Not Detected ng/mL (Cutoff: 10); Dihydrocodeine Not Detected ng/mL (Cutoff: 25); EDDP Not Detected ng/mL (Cutoff: 25); Fentanyl Not Detected ng/mL (Cutoff: 2); Flurazepam Not Detected ng/mL (Cutoff: 10); Hydrocodone Not Detected ng/mL (Cutoff: 25); Hydromorphone Not Detected ng/mL (Cutoff: 25); Hydromorphone-3-beta-glucuroni Not Detected ng/mL (Cutoff: 100); Lorazepam Not Detected ng/mL (Cutoff: 10); Lorazepam Glucuronide Not Detected ng/mL (Cutoff: 50); Meperidine Not Detected ng/mL (Cutoff: 25); Methadone Not Detected ng/mL (Cutoff: 25); Midazolam Not Detected ng/mL (Cutoff: 10); Morphine Not Detected ng/mL (Cutoff: 25); N-Desmethylclobazam Not Detected ng/mL (Cutoff: 200); N-desmethyltapentadol Not Detected ng/mL (Cutoff: 50); Naloxone Not Detected ng/mL (Cutoff: 25); Norhydrocodone Not Detected ng/mL (Cutoff: 25); Normeperidine Not Detected ng/mL (Cutoff: 25); Noroxycodone Not Detected ng/mL (Cutoff: 25); Noroxymorphone Not Detected ng/mL (Cutoff: 25); O-desmethyltramadol Present ng/mL (Cutoff: 25); Oxazepam Glucuronide Not Detected ng/mL (Cutoff: 50); Phencyclidine Presumptive Positive ng/mL (Cutoff: 25); Prazepam Not Detected ng/mL (Cutoff: 10); Propoxyphene Not Detected ng/mL (Cutoff: 25); Specific Gravity 1.022; Tapentadol Not Detected ng/mL (Cutoff: 25); Temazepam Not Detected ng/mL (Cutoff: 10); Temazepam Glucuronide Not Detected ng/mL (Cutoff: 50); Tetrahydrocannabinol Negative ng/mL (Cutoff: 50); Tramadol Present ng/mL (Cutoff: 25); Triazolam Not Detected ng/mL (Cutoff: 10); Zolpidem Phenyl-4-Carboxy acid Not Detected ng/mL (Cutoff: 10); pH 5.9
[2020-03-17 17:05] LABS: Phencyclidine Negative ng/mL (Cutoff: 10); Phencyclidine Interpretation Negative.
[2020-03-18 06:46] LABS: Amphetamine Negative ng/mL (Cutoff: 25); Amphetamines Interpretation Negative.; MDA (Ecstasy Metabolite) Negative ng/mL (Cutoff: 25); MDMA (Ecstasy) Negative ng/mL (Cutoff: 25); Methamphetamine Negative ng/mL (Cutoff: 25); Phentermine Negative ng/mL (Cutoff: 25); Pseudoephedrine/Ephedrine Negative ng/mL (Cutoff: 25)
== END 2020-03-15 09:15 ==
LOC: LBN 08:55
PROVIDERS: PCP Nurse Practitioner Family; Visit Provider Nurse Practitioner Family
DX: Z79.891 Long term (current) use of opiate analgesic (principal)
CPT/HCPCS: 80307; 80324; 80347; 80364; 83992

== ENCOUNTER 2020-03-21 01:48 | Outpatient (CLI) | payer MEDICARE, MEDICAID, SELFPAY ==
[2020-03-21 08:50] LABS: Anion Gap 7.7 mmol/L (3-11); BUN 12 mg/dL (7-18); CO2 31.3 mmol/L (21.0-32.0); CREATININE 0.81 mg/dL (0.55-1.02); Calcium 8.6 mg/dL (8.5-10.1); Chloride 102 mmol/L (98-107); Glucose 106 mg/dL (74-106); Potassium 3.6 mmol/L (3.5-5.1); Sodium 141 mmol/L (136-145)
== END 2020-03-21 02:08 ==
PROVIDERS: PCP Nurse Practitioner Family; Visit Provider Nurse Practitioner Family
DX: I10 Essential (primary) hypertension (principal)
CPT/HCPCS: 36415; 80048

== ENCOUNTER 2020-06-07 16:15 | Outpatient (REF) | payer MEDICARE, MEDICAID, SELFPAY ==
[2020-06-20 10:08] LABS: Creatinine, U 160.3 mg/dL; Specific Gravity 1.017; pH 6.9
[2020-06-20 10:09] LABS: Barbiturates Negative ng/mL (Cutoff: 200); Cocaine Negative ng/mL (Cutoff: 150); Comment Normal
[2020-06-20 10:10] LABS: Tetrahydrocannabinol Negative ng/mL (Cutoff: 50)
[2020-06-20 10:11] LABS: Codeine Not Detected ng/mL (Cutoff: 25)
[2020-06-20 10:13] LABS: 6-monoacetylmorphine Not Detected ng/mL (Cutoff: 25); Morphine Not Detected ng/mL (Cutoff: 25)
[2020-06-20 10:16] LABS: Hydrocodone Present ng/mL (Cutoff: 25)
[2020-06-20 10:18] LABS: Hydromorphone Not Detected ng/mL (Cutoff: 25); Hydromorphone-3-beta-glucuroni Not Detected ng/mL (Cutoff: 100)
[2020-06-20 10:19] LABS: Noroxycodone Not Detected ng/mL (Cutoff: 25)
[2020-06-20 10:20] LABS: Fentanyl Not Detected ng/mL (Cutoff: 2); Noroxymorphone Not Detected ng/mL (Cutoff: 25)
[2020-06-20 10:30] LABS: Dihydrocodeine Present ng/mL (Cutoff: 25); Norhydrocodone Present ng/mL (Cutoff: 25)
[2020-06-20 10:31] LABS: Meperidine Not Detected ng/mL (Cutoff: 25); Naloxone Not Detected ng/mL (Cutoff: 25); Normeperidine Not Detected ng/mL (Cutoff: 25)
[2020-06-20 10:32] LABS: EDDP Not Detected ng/mL (Cutoff: 25); Methadone Not Detected ng/mL (Cutoff: 25); Propoxyphene Not Detected ng/mL (Cutoff: 25)
[2020-06-20 10:33] LABS: O-desmethyltramadol Not Detected ng/mL (Cutoff: 25); Tapentadol Not Detected ng/mL (Cutoff: 25); Tramadol Not Detected ng/mL (Cutoff: 25)
[2020-06-20 10:34] LABS: Buprenorphine Not Detected ng/mL (Cutoff: 5); N-desmethyltapentadol Not Detected ng/mL (Cutoff: 50)
[2020-06-20 10:42] LABS: Alprazolam Not Detected (Cutoff: 10)
[2020-06-20 10:43] LABS: Alpha-Hydroxyalprazolam Not Detected (Cutoff: 10); Alpha-OH-alprazolam Glucuronid Not Detected (Cutoff: 50); Chlordiazepoxide Not Detected (Cutoff: 10); Clobazam Not Detected (Cutoff: 10)
[2020-06-20 10:44] LABS: Clonazepam Not Detected (Cutoff: 10); Diazepam Not Detected (Cutoff: 10); N-Desmethylclobazam Not Detected (Cutoff: 200)
[2020-06-20 10:45] LABS: 2-Hydroxy Ethyl Flurazepam Not Detected (Cutoff: 10); Flurazepam Not Detected (Cutoff: 10)
[2020-06-20 10:46] LABS: Alpha-Hydroxy Midazolam Not Detected (Cutoff: 10); Lorazepam Not Detected (Cutoff: 10); Lorazepam Glucuronide Not Detected (Cutoff: 50); Midazolam Not Detected (Cutoff: 10)
[2020-06-20 10:47] LABS: Oxazepam Glucuronide Not Detected (Cutoff: 50); Prazepam Not Detected (Cutoff: 10); Temazepam Not Detected (Cutoff: 10)
[2020-06-20 10:48] LABS: Alpha-Hydroxy Triazolam Not Detected (Cutoff: 10); Temazepam Glucuronide Not Detected (Cutoff: 50); Triazolam Not Detected (Cutoff: 10); Zolpidem Phenyl-4-Carboxy acid Not Detected (Cutoff: 10)
[2020-06-20 10:50] LABS: Methamphetamine Not Detected
[2020-06-20 10:51] LABS: 3,4-methylenedioxyethylampheta Not Detected; 3,4-methylenedioxymethamphetam Not Detected; Ephedrine Not Detected
[2020-06-20 10:52] LABS: Amphetamine Not Detected
[2020-06-20 10:53] LABS: 3,4-methylenedioxyamphetamine Not Detected; Pseudoephedrine Not Detected
[2020-06-20 10:54] LABS: Phentermine Not Detected
[2020-06-20 10:55] LABS: Phencyclidine (PCP) Not Detected
[2020-06-20 10:56] LABS: Methylphenidate Not Detected; Ritalinic Acid Not Detected
== END 2020-06-07 16:16 | disposition home or self-care (01) ==
LOC: LBN 16:15
PROVIDERS: PCP Nurse Practitioner Family; Visit Provider Nurse Practitioner Family
DX: M54.2 Cervicalgia (principal); M54.9 Dorsalgia, unspecified; G89.29 Other chronic pain; Z79.891 Long term (current) use of opiate analgesic
CPT/HCPCS: 80307; 80347; 80364

== ENCOUNTER 2020-09-07 03:24 | Outpatient (CLI) | payer MEDICARE, MEDICAID, SELFPAY ==
[2020-09-07 07:35] LABS: Abs Immature Grans 0.01 10^3/uL (0.0-0.06); Absolute Basophil Count 0.05 10^3/uL (0.0-0.2); Absolute Eosinophil Count 0.12 10^3/uL (0.0-0.7); Absolute Lymphocyte Count 2.14 10^3/uL (1.2-3.4); Absolute Monocyte Count 0.54 10^3/uL (0.1-0.8); Absolute Neutrophil Count 2.82 10^3/uL (1.2-6.7); Basophils % 0.9; Eosinophils % 2.1; HCT 40.8 % (36.0-46.0); HGB 13.6 g/dL (11.2-15.7); Immature Grans % 0.2; Lymphocytes % 37.7; MCH 30.4 pg (27.0-33.0); MCHC 33.3 % (32.0-36.0); MCV 91.1 fL (80-95); MPV 10.1 fL (8.0-11.0); Monocytes % 9.5; Neutrophils % 49.6; Nucleated RBC 0 %; Platelet Count 283 10^3/uL (130-400); RBC 4.48 10^6/uL (3.93-5.22); RDW 12.3 % (11.7-14.6); RDW-SD 41.1 fL; WBC 5.68 10^3/uL (4.4-10.8)
[2020-09-07 07:50] LABS: Hemoglobin A1C 5.7 % (<5.7)
[2020-09-07 07:58] LABS: ALT 18 U/L (14-59); AST 14 U/L (15-37); Albumin 3.5 g/dL (3.4-5.0); Alkaline Phosphatase 133 U/L (46-116); Anion Gap 7.7 mmol/L (3-11); BUN 18 mg/dL (7-18); Bilirubin, Total 0.3 mg/dL (0.2-1.0); CO2 29.3 mmol/L (21.0-32.0); CREATININE 0.9 mg/dL (0.55-1.02); Calcium 9.1 mg/dL (8.5-10.1); Chloride 103 mmol/L (98-107); Glucose 120 mg/dL (74-106); Potassium 3.8 mmol/L (3.5-5.1); Sodium 140 mmol/L (136-145); TSH (W/Ref FT4) 2.01 uIU/mL (0.36-3.74); Total Protein 7.5 g/dL (6.4-8.2)
== END 2020-09-07 03:25 | disposition home or self-care (01) ==
LOC: LBO 03:25
PROVIDERS: PCP Nurse Practitioner Family; Visit Provider Counselor Addiction (Substance Use Disorder)
DX: F31.9 Bipolar disorder, unspecified (principal); Z79.899 Other long term (current) drug therapy; Z51.81 Encounter for therapeutic drug level monitoring; I10 Essential (primary) hypertension; E66.9 Obesity, unspecified; Z98.84 Bariatric surgery status; E03.9 Hypothyroidism, unspecified
CPT/HCPCS: 36415; 80053; 80156; 83036; 84443; 85025

== ENCOUNTER 2020-09-15 02:59 | Outpatient (CLI) | payer MEDICARE, MEDICAID, SELFPAY ==
[2020-09-15 11:31] LABS: ALT 21 U/L (14-59); AST 14 U/L (15-37); Albumin 3.8 g/dL (3.4-5.0); Alkaline Phosphatase 128 U/L (46-116); Anion Gap 7.1 mmol/L (3-11); BUN 17 mg/dL (7-18); Bilirubin, Total 0.3 mg/dL (0.2-1.0); CO2 30.9 mmol/L (21.0-32.0); CREATININE 0.8 mg/dL (0.55-1.02); Calcium 8.7 mg/dL (8.5-10.1); Chloride 103 mmol/L (98-107); Glucose 114 mg/dL (74-106); Potassium 3.8 mmol/L (3.5-5.1); Sodium 141 mmol/L (136-145); TROPONIN-I 12.4 ug/mL (4.0-12.0); TSH 2.01 uIU/mL (0.36-3.74); Total Protein 7.1 g/dL (6.4-8.2)
== END 2020-09-15 03:00 | disposition home or self-care (01) ==
LOC: LBO 02:59
PROVIDERS: PCP Nurse Practitioner Family; Visit Provider Counselor Addiction (Substance Use Disorder)
DX: F31.9 Bipolar disorder, unspecified (principal); Z79.899 Other long term (current) drug therapy; Z51.81 Encounter for therapeutic drug level monitoring
CPT/HCPCS: 36415; 80053; 80156; 84443

== ENCOUNTER 2020-09-26 11:20 | Outpatient (REF) | payer MEDICARE, MEDICAID, SELFPAY ==
[2020-09-29 07:50] LABS: 2-Hydroxy Ethyl Flurazepam Not Detected ng/mL (Cutoff: 10); 3,4-methylenedioxyamphetamine Not Detected ng/mL (Cutoff: 100); 3,4-methylenedioxyethylampheta Not Detected ng/mL (Cutoff: 100); 3,4-methylenedioxymethamphetam Not Detected ng/mL (Cutoff: 100); 6-monoacetylmorphine Not Detected ng/mL (Cutoff: 25); Alpha-Hydroxy Midazolam Not Detected ng/mL (Cutoff: 10); Alpha-Hydroxy Triazolam Not Detected ng/mL (Cutoff: 10); Alpha-Hydroxyalprazolam Not Detected ng/mL (Cutoff: 10); Alpha-OH-alprazolam Glucuronid Not Detected ng/mL (Cutoff: 50); Alprazolam Not Detected ng/mL (Cutoff: 10); Amphetamine Not Detected ng/mL (Cutoff: 100); Barbiturates Negative ng/mL (Cutoff: 200); Buprenorphine Not Detected ng/mL (Cutoff: 5); Chlordiazepoxide Not Detected ng/mL (Cutoff: 10); Clobazam Not Detected ng/mL (Cutoff: 10); Clonazepam Not Detected ng/mL (Cutoff: 10); Cocaine Negative ng/mL (Cutoff: 150); Codeine Not Detected ng/mL (Cutoff: 25); Comment Normal; Creatinine, U 213.1 mg/dL; Diazepam Not Detected ng/mL (Cutoff: 10); Dihydrocodeine Present ng/mL (Cutoff: 25); EDDP Not Detected ng/mL (Cutoff: 25); Ephedrine Not Detected ng/mL (Cutoff: 100); Fentanyl Not Detected ng/mL (Cutoff: 2); Flurazepam Not Detected ng/mL (Cutoff: 10); Hydrocodone Present ng/mL (Cutoff: 25); Hydromorphone Not Detected ng/mL (Cutoff: 25); Hydromorphone-3-beta-glucuroni Not Detected ng/mL (Cutoff: 100); Lorazepam Not Detected ng/mL (Cutoff: 10); Lorazepam Glucuronide Not Detected ng/mL (Cutoff: 50); Meperidine Not Detected ng/mL (Cutoff: 25); Methadone Not Detected ng/mL (Cutoff: 25); Methamphetamine Not Detected ng/mL (Cutoff: 100); Methylphenidate Not Detected ng/mL (Cutoff: 20); Midazolam Not Detected ng/mL (Cutoff: 10); Morphine Not Detected ng/mL (Cutoff: 25); N-Desmethylclobazam Not Detected ng/mL (Cutoff: 200); N-desmethyltapentadol Not Detected ng/mL (Cutoff: 50); Naloxone Not Detected ng/mL (Cutoff: 25); Norbuprenorphine Not Detected ng/mL (Cutoff: 5); Norfentanyl Not Detected ng/mL (Cutoff: 2); Norhydrocodone Present ng/mL (Cutoff: 25); Normeperidine Not Detected ng/mL (Cutoff: 25); Noroxycodone Not Detected ng/mL (Cutoff: 25); Noroxymorphone Not Detected ng/mL (Cutoff: 25); O-desmethyltramadol Not Detected ng/mL (Cutoff: 25); Oxazepam Glucuronide Not Detected ng/mL (Cutoff: 50); Phencyclidine (PCP) Not Detected ng/mL (Cutoff: 20); Phentermine Not Detected ng/mL (Cutoff: 100); Prazepam Not Detected ng/mL (Cutoff: 10); Propoxyphene Not Detected ng/mL (Cutoff: 25); Pseudoephedrine Not Detected ng/mL (Cutoff: 100); Ritalinic Acid Not Detected ng/mL (Cutoff: 100); Tapentadol Not Detected ng/mL (Cutoff: 25); Temazepam Not Detected ng/mL (Cutoff: 10); Temazepam Glucuronide Not Detected ng/mL (Cutoff: 50); Tetrahydrocannabinol Negative ng/mL (Cutoff: 50); Tramadol Not Detected ng/mL (Cutoff: 25); Triazolam Not Detected ng/mL (Cutoff: 10); Zolpidem Phenyl-4-Carboxy acid Not Detected ng/mL (Cutoff: 10); pH 8.7
== END 2020-09-26 11:21 | disposition home or self-care (01) ==
LOC: LBN 11:20
PROVIDERS: PCP Nurse Practitioner Family; Visit Provider Nurse Practitioner Family
DX: M54.2 Cervicalgia (principal); M54.9 Dorsalgia, unspecified; G89.29 Other chronic pain; Z79.891 Long term (current) use of opiate analgesic
CPT/HCPCS: 80307; 80347; 80364

== ENCOUNTER 2020-12-27 19:46 | Emergency (ER) | payer MEDICARE, MEDICAID, SELFPAY ==
[2020-12-27 19:51] VITALS: BP 165/84; PULSE 92; RESP 18; TEMP 36.6; O2SAT 98
[2020-12-27 20:16] LABS: Bilirubin Negative (Negative); Blood Large (Negative); Clarity Cloudy (Clear); Glucose Negative (Negative); Ketones Trace mg/dL (Negative); Leukocyte Esterase Small (Negative); Nitrite Positive (Negative); Specific Gravity >= 1.030 (1.005-1.025); Urobilinogen 0.2 EU/dL (Up TO 0.2); pH 5.5 (5-8)
--- NOTE | 2020-12-27 20:17 | ED.GENADUL_ITS ---
Discharge Plan Disposition Patient Disposition: HOME Condition: Stable Discharge Details Clinical Impression: Cystitis Primary Care Provider: Vasu Brian ED Provider: Buck Robertson Home Meds and New Rx's Prescriptions: New nitrofurantoin monohyd/m-cryst [Macrobid] 100 mg capsule 100 mg PO Q12H 5 Days Qty: 10 RF: 0 phenazopyridine [Pyridium] 200 mg tablet 200 mg PO TID PRNQty: 8 RF: 0 Continued venlafaxine [Effexor XR] 150 mg capsule,extended release 24hr 300 mg PO DAILY RF: 0 polyethylene glycol 3350 [Miralax] 17 gram/dose powder 17 g PO DAILY Qty: 850 RF: 3 Metamucil (sugar) Powder 1 tbsp PO DAILY Qty: 368 RF: 3 bisacodyl 5 mg tablet,delayed release (DR/EC) 5 mg PO DAILY PRN (Reason: stimulant laxative) Qty: 30 RF: 0 hydrocodone-acetaminophen 5-325 mg tablet 1 tab PO QID MDD 4 tablets/day PRN (Reason: pain) 28 Days Qty: 112 RF: 0 trazodone 150 mg tablet 300 mg PO QHS RF: 0 acetaminophen 500 mg capsule 500 mg PO Q6H PRNRF: 0 levothyroxine 100 mcg tablet 100 mcg PO DAILY Qty: 90 RF: 3 carbamazepine 200 mg capsule, ER multiphase 12 hr 400 mg PO BID RF: 0 hydrochlorothiazide 12.5 mg tablet 12.5 mg PO DAILY AM Qty: 90 RF: 3 pantoprazole 20 mg tablet,delayed release (DR/EC) 20 mg PO QAM Qty: 90 RF: 3 risperidone [Risperdal] 0.5 mg tablet 0.5 mg PO BID RF: 0 Discharge Instructions Instructions: Urinary Tract Infection in Women (ED) Additional Instructions: if symptoms continue in 3 days follow up with your primary care provider if you feel more ill, have severe back or abdomen pain, fevers or persistent vomit return to the emergency department Medical Decision Making 50 yo female comes in with complaints of feeling though she can't empty her bladder fully and frequent urination with very mild hematuria. Denies abdomen pain or back pain and no fevers or chills, no n/v. She is in no distress on exam speaking fully, no abdomen tenderness or cva tenderness. Bedside bladder scan showed 44cc of urine in the bladder per nursing after she urinated pink tinged urine. Suspect uti, will obtain ua and reassess. no findings on exam or history to suggest kidney stone or pyelo. labs consistent with uti on ua, remains stable. Will start macrobid and pyridium and advised if symptoms don't resolve in a few days follow up with her pcp, return precautions given Differential Diagnosis Differential Diagnosis: cystitis, uti Lab Data Lab results reviewed: Yes I reviewed the patient's lab results. HPI General Mode of arrival: ambulatory . Date/Time Provider Initiated Documentation: 12/27/20 20:01 . Limitations to Documentation: no limitations . Information obtained by: patient . History of Present Illness 50 year old F presents to the emergency department with the chief complaint of urinary urgency, described as moderate, Patient started experiencing this hour(s) (6) and it has been constant. No relieving factors improve symptom(s), No exacerbating factors reported . Patient did receive the following treatments prior to arrival, none Related Data Home Medications Medication Instructions Recorded Confirmed venlafaxine 150 mg 300 mg PO DAILY cap 04/15/19 12/27/20 capsule,extended release 24 hr acetaminophen 500 mg capsule 500 mg PO Q6H PRN 06/10/19 12/27/20 levothyroxine 100 mcg tablet 100 mcg PO DAILY #90 tab-cap 02/18/20 12/27/20 carbamazepine 200 mg 400 mg PO BID cap 02/25/20 12/27/20 capsule,extended release [id number] hydrochlorothiazide 12.5 mg tablet 12.5 mg PO DAILY AM #90 tab-cap 05/10/20 12/27/20 trazodone 150 mg tablet 300 mg PO QHS tab 05/10/20 12/27/20 pantoprazole 20 mg tablet,delayed 20 mg PO QAM #90 tab 09/28/20 12/27/20 release bisacodyl 5 mg tablet,delayed 5 mg PO DAILY PRN #30 tab-cap 10/14/20 12/27/20 release polyethylene glycol 3350 17 17 g PO DAILY #850 g 10/14/20 12/27/20 gram/dose oral powder psyllium seed (sugar) oral powder 1 tbsp PO DAILY #368 g 10/14/20 12/27/20 risperidone 0.5 mg tablet 0.5 mg PO BID tab 10/19/20 12/27/20 hydrocodone 5 mg-acetaminophen 325 1 tab PO QID PRN 28 Days #112 tab 10/24/20 12/27/20 mg tablet MDD 4 tablets/day nitrofurantoin monohyd/m-cryst 100 mg PO Q12H 5 Days #10 cap 12/27/20 [Macrobid] phenazopyridine [Pyridium] 200 mg PO TID PRN #8 tab 12/27/20 Previous Rx's Medication Instructions Recorded levothyroxine 100 mcg tablet 100 mcg PO DAILY #90 tab-cap 02/18/20 hydrochlorothiazide 12.5 mg tablet 12.5 mg PO DAILY AM #90 tab-cap 05/10/20 pantoprazole 20 mg tablet,delayed 20 mg PO QAM #90 tab 09/28/20 release bisacodyl 5 mg tablet,delayed 5 mg PO DAILY PRN #30 tab-cap 10/14/20 release polyethylene glycol 3350 17 17 g PO DAILY #850 g 10/14/20 gram/dose oral powder psyllium seed (sugar) oral powder 1 tbsp PO DAILY #368 g 10/14/20 hydrocodone 5 mg-acetaminophen 325 1 tab PO QID PRN 28 Days #112 tab 10/24/20 mg tablet MDD 4 tablets/day nitrofurantoin monohyd/m-cryst 100 mg PO Q12H 5 Days #10 cap 12/27/20 [Macrobid] phenazopyridine [Pyridium] 200 mg PO TID PRN #8 tab 12/27/20 Allergies Allergy/AdvReac Type Severity Reaction Status Date / Time gabapentin AdvReac Mild makes her Verified 12/27/20 19:59 feel drunk sumatriptan [From Imitrex] AdvReac Verified 12/27/20 19:59 General Stated Complaint: Urinary PEACE: 3 Review of Systems All systems reviewed & are unremarkable except as noted in HPI and below Constitutional Constitutional: Denies chills, Denies fever(s) and Denies weakness Cardiovascular Cardiovascular: Denies chest pain and Denies dyspnea Respiratory Respiratory: Denies cough and Denies dyspnea Gastrointestinal Gastrointestinal: Denies abdominal pain, Denies nausea and Denies vomiting Musculoskeletal Musculoskeletal: Denies joint swelling Neurologic Neurologic: Denies weakness [facility] Medical History Bipolar disorder, unspecified Constipation Cryptogenic sensory polyneuropathy Legs Gastroesophageal reflux disease Hyperlipidemia, unspecified 09/2019 labs: 10-year ASCVD risk = ~0.7% Hypertension Resolved s/p bariatric surgery & weight loss; re-started med 02/2020 Hypothyroidism Impingement syndrome of left shoulder Insomnia Obesity Plantar fasciitis Polycystic ovarian disease Sleep apnea Pt reports she had a negative sleep study --> ruled-out Social phobia, unspecified Moderate, NKHS Tendinitis of long head of biceps brachii of left shoulder Urinary incontinence Vitamin D deficiency, unspecified Surgical History H/O arthroscopy of knee 2000 H/O exploratory laparotomy 1987 S/P cholecystectomy 2000 S/P endoscopy 2012 S/P gastric bypass Laparoscopic sleeve S/P removal of ovarian cyst S/P tubal ligation 1992 Family History Mother Alcohol abuse Depression Diabetes Hypertension Father Alcohol abuse Cancer Heart disease Hypertension Sister Alcohol abuse Depression Hypertension Substance abuse Brother Alcohol abuse Substance abuse Brother No problems noted. Brother Depression Son No problems noted. Daughter Alcohol abuse Depression Substance abuse Social History Smoking/Tobacco Use Status: Former Tobacco Use tobacco type: cigarettes Quit Date: 04/08/12 Pack-years: 25 Tobacco: How many years used: 25 Second Hand Exposure: Yes Smoking risk assessment performed?: Yes Alcohol Intake: former Drug use: Occasionally Substance use type: marijuana Counseling given: No Adopted: Yes Caregiver/Support person: No Foster care: Yes Household members: family and other Details: Lives with son & boyfriend Housing: apartment Number of Children: 2 Communication Needs: Hard of Hearing Education Level: high school Details: GED & Associate's degree in business Do you need help understanding health information?: Rarely current occupation: Disabled Pets and animals: Yes Pets and animals: dog(s) Sexually active: Yes Do you think of yourself as: straight/heterosexual Current gender identity: female What is your relationship status?: How often do you talk on the phone with friends or family?: three or more times per week How often do you get together with friends or relatives?: three or more times per week How often do you attend confucianist or jainism services?: 1-3 times per year Do you belong to any clubs or organized social groups?: no Panel score (0-1 are the most socially isolated patients): 1 What type of physical activity do you participate in: regular exercise Duration: 45-60 minutes/day Frequency: daily Renea/Christian: Baptism Special renea needs: No Seatbelt use: always Helmet use: Yes Helmet use: always Drive intox or ride w/intox [employer] truck driver: No Do you feel safe at home: Yes Do you feel safe in your relationship?: Yes Female Reproductive History Menstrual control method: permanent sterilization History History 3 Para 2 Hx # Term Pregnancies Multiple births Hx # Pregnancies Ectopic pregnancies AB induced Hx Number of Living Children AB spontaneous Exam Const General: no acute distress Orientation: alert HENMT Head: normal to inspection Ears: external ears normal General nose exam: external nose normal Mouth: moist mucous membranes Eyes General: appearance normal, both eyes and all related structures Neck Neck: normal visual inspection Resp Effort & Inspection: normal respiratory effort and able to speak in complete sentences Cardio Rate: regular rate GI Palpation: soft and nontender Back/Spine/Pelvis Back: no CVA tenderness Skin General skin exam: no rashes or lesions noted Neuro General: patient alert and patient oriented x3 Extrem General: normal to inspection Psych Mental Status: mental status grossly normal Course Vital Signs Vital signs: Vital Signs Temperature 36.6 C 12/27/20 19:51 Pulse 92 H 12/27/20 19:51 Respiratory Rate 18 12/27/20 19:51 Blood Pressure 165/84 H 12/27/20 19:51 Pulse Oximetry 98 12/27/20 19:51 Temperature 36.6 C 12/27/20 19:51 Temperature Source Temporal Artery Scan 12/27/20 19:51 Pulse 92 H 12/27/20 19:51 Respiratory Rate 18 12/27/20 19:51 Respiratory Effort 12/27/20 19:57 Blood Pressure 165/84 H 12/27/20 19:51 Blood Pressure Position Sitting 12/27/20 19:51 Pulse Oximetry 98 12/27/20 19:51 Oxygen Delivery Method Room Air 12/27/20 19:51 Oxygen Flow Rate 0 12/27/20 19:51 Pain Level 0 12/27/20 19:51 Lab/Test Results Lab/Test Results: 12/27/20 20:09 Urine - Clean Catch Urine Culture - Pending
[2020-12-27 20:29] LABS: C & S Indicated? C&S Done As Ordered; RBC >50 HPF (0-2); WBC >50 HPF (0-5)
[2020-12-27] MEDS: MacroBID 100 MG CAP PO (20:54)
[2020-12-27] MEDS: Phenazopyridine 200 MG TAB PO (20:54)
== END 2020-12-27 21:05 | disposition home or self-care (01) ==
PROVIDERS: Emergency Provider Emergency Medicine; PCP Nurse Practitioner Family
DX: N30.01 Acute cystitis with hematuria (principal); B96.20 Unspecified Escherichia coli [E. coli] as the cause of diseases classified elsewhere
CPT/HCPCS: 87077; 99283; 81003; 81015; 87086; 87186

== ENCOUNTER 2021-01-03 13:02 | Outpatient (REF) | payer MEDICARE, MEDICAID, SELFPAY ==
[2021-01-03 16:15] LABS: Bilirubin Color Interference (Negative); Blood Color Interference (Negative); Clarity Clear (Clear); Glucose Color Interference mg/dL (Negative); Ketones Color Interference mg/dL (Negative); Leukocyte Esterase Color Interference (Negative); Nitrite Color Interference (Negative); Specific Gravity 1.025 (1.005-1.025); Urobilinogen Color Interference EU/dL (Up TO 0.2)
[2021-01-03 16:19] LABS: Bacteria Moderate HPF (Negative); Casts Negative LPF (Negative); Crystals Negative HPF (Negative); Epithelial Cells Many HPF (Negative); Mucus Negative (Negative); Other Cells Few Renal (Negative); RBC Negative HPF (0-2); WBC 20-50 HPF (0-5)
[2021-01-03 16:25] LABS: C & S Indicated? No/Sq. Contamination
== END 2021-01-03 13:03 | disposition home or self-care (01) ==
LOC: LBN 13:02
PROVIDERS: PCP Nurse Practitioner Family; Visit Provider Nurse Practitioner Family
DX: N39.0 Urinary tract infection, site not specified (principal)
CPT/HCPCS: 81003; 81015

== ENCOUNTER 2021-01-11 02:32 | Outpatient (CLI) | payer MEDICARE, MEDICAID, SELFPAY ==
[2021-01-11 12:48] LABS: Calculated LDL 144 mg/dL (<100); Cholesterol 260 mg/dL (<200); HDL Cholesterol 99 mg/dL (40-60); Triglyceride 86 mg/dL (<150)
== END 2021-01-11 02:33 | disposition home or self-care (01) ==
LOC: LOS 02:33
PROVIDERS: PCP Nurse Practitioner Family; Visit Provider Nurse Practitioner Family
DX: E78.5 Hyperlipidemia, unspecified (principal)
CPT/HCPCS: 36415; 80061

== ENCOUNTER 2021-02-28 01:16 | Outpatient (CLI) | payer MEDICARE, MEDICAID, SELFPAY ==
--- NOTE | 2021-02-28 06:45 | DI.MRI_ITS ---
Exam(s) MR LUMBAR SPINE WO EXAM: MR LUMBAR SPINE WO INDICATION: Continued pain,G89.29. TECHNIQUE: MR examination of the lumbosacral spine was performed according to the usual protocol. FINDINGS: No significant bony signal abnormality is seen. Intervertebral discs show normal signal. No signifi cant facet arthropathy identified. The conus medullaris appears intact. There is no evidence of a central canal spinal stenosis, or neural foraminal stenosis, in the lumbar region. No disc herniation is identified in the lumbar region. IMPRESSION: Negative lumbosacral spine MRI.
--- NOTE | 2021-02-28 06:45 | DI.MRI_ITS ---
Exam(s) MR THORACIC SPINE WO EXAM: MR THORACIC SPINE WO CLINICAL HISTORY: Continued pain,G89.29. TECHNIQUE: Multiplanar multisequence MRI was performed. FINDINGS: Thoracic spine MRI was performed according to the usual protocol. Current examination is compared previous examination of September 2018. Note is again made of mild prominence of epidural fat posterio rly. No focal narrowing of the spinal canal is noted. Spinal cord shows normal diameter and normal signal throughout. No disc herniation. No neural foraminal stenosis. No bony signal abnormality se en. IMPRESSION: Mild prominence of epidural fat pad. No focal findings. No change from prior examination of September 25. DATA REPOSITORY:
== END 2021-02-28 01:36 ==
PROVIDERS: PCP Nurse Practitioner Family; Visit Provider Nurse Practitioner Family
DX: G89.29 Other chronic pain (principal)
CPT/HCPCS: 72146; 72148

== ENCOUNTER 2021-06-19 09:03 | Emergency (ER) | payer MEDICARE, MEDICAID, SELFPAY ==
[2021-06-19 09:18] VITALS: BP 132/92; PULSE 86; RESP 18; TEMP 36.6; O2SAT 96
--- NOTE | 2021-06-19 10:02 | W.ED.GENAD ---
Discharge Plan Disposition Patient Disposition: HOME Condition: Stable Discharge Details Clinical Impression: Knee pain, left Primary Care Provider: Vasu Brian ED Provider: Jazzy Bowman Home Meds and New Rx's Prescriptions: New lidocaine [Lidoderm] 5 % adhesive patch,medicated 1 patch topical DAILY PRN (Reason: pain) Qty: 15 0RF Rx Instructions: leave on most painful area for up to 12 hrs Continued venlafaxine [Effexor XR] 150 mg capsule,extended release 24hr 300 mg PO DAILY 0RF trazodone 150 mg tablet 300 mg PO QHS 0RF Label Comments: Pt reports she can take additional 150mg if she wakes up and can't sleep 05/10/20 acetaminophen 500 mg capsule 500 mg PO Q6H PRN0RF cephalexin 500 mg capsule 500 mg PO QID Qty: 28 0RF Rx Instructions: Take 1 capsule every 6 hours x7 days phenazopyridine [Pyridium] 100 mg tablet 100 mg PO TID PRN (Reason: pain) Qty: 10 0RF Rx Instructions: take capsule every 8 hours as needed for bladder spasms carbamazepine 200 mg capsule, ER multiphase 12 hr 400 mg PO BID 0RF pantoprazole 20 mg tablet,delayed release (DR/EC) 20 mg PO QAM Qty: 90 3RF Rx Instructions: Take 20 mg once daily in the morning at least 30 minutes before first meal risperidone [Risperdal] 0.5 mg tablet 0.5 mg PO BID 0RF Rx Instructions: note dated 10/06/20 [facility] levothyroxine 100 mcg tablet 100 mcg PO DAILY Qty: 90 3RF Rx Instructions: Administer in the morning on an empty stomach, at least 30-60 minutes before food hydrochlorothiazide 12.5 mg tablet 12.5 mg PO DAILY AM Qty: 90 3RF ibuprofen 800 mg tablet 800 mg PO TID PRN (Reason: pain) Qty: 120 3RF Discharge Instructions Instructions: Knee Pain (ED) Additional Instructions: Your imaging is reassuring here today. No acute abnormality. I have referred you to orthopedics for your acute on chronic knee pain. Please call the number listed below to schedule follow-up appointment. To help with pain please encourage rest, ice, elevation. Tylenol and ibuprofen as needed for discomfort. You may continue with the crutches to assist with ambulation as needed. Prescription for lidocaine patches have been sent. If insurance does not cover these well, these are available [id number]. If you develop any new or worsening symptoms seek care once again. Referrals: Vasu Brian NP [Primary Care Provider] - Steven Abreu MD [ [facility] STAFF PHYSICIAN] - Discharge Data Discharge Date/Time-TO BE ENTERED AT DEPARTURE: 06/19/21 13:00 Medical Decision Making Patient is a pleasant 50-year-old female presents today with chief complaint of left knee pain. She reports that she initially injured her knee when making her bed approximately 3 months ago. States at that time that she felt a pop and describes rotational injury. Has been being followed by her primary care, and is working with physical therapy. States that when she was leaving the house for physical therapy appointment for the left knee today, she suffered another rotational injury and since then has had burning in the anterior aspect of the knee extending from mid thigh to mid calf anteriorly. Denies any fall or blow to the knee. No direct trauma. On exam, patient appears nontoxic. Patient is 2+ distal pulses. Sensation is intact. No calf tenderness. Full range of motion of the ankle. Range of motion of the knee is limited, she has full extension is able to straight leg raise with flexion is to proximately 45 degrees secondary to pain. Pain is primarily anteriorly. My exam is limited secondary to discomfort as well as body habitus. I do not appreciate any significant laxity compared to the contralateral side but again, this does seem to be slightly limited. Diffuse pain anteriorly. No notable deformity or discoloration. Will obtain x-ray for acute on chronic pain. Patient not had imaging of the knee over the past 3 months. Will give Tylenol and ibuprofen for discomfort. FINDINGS: BONES:? No acute fracture is present. No bony destructive lesion is seen. JOINTS: The knee is normally aligned. No joint effusion is seen. ? Joint spaces well maintained.? Minimal periarticular spurring at the patella. SOFT TISSUE: Normal. IMPRESSION: Unremarkable radiographs of the left knee. Discussed with patient. She continued to have discomfort, will apply lidoderm patch. Secondary to girth of thigh, concerned that our bracing will not fit. Will reach out to ortho to see if they have one that may fit better. Orthopedics does not have brace. I did speaek with Dr. Abreu. He reviweed the XR. Advised that if bracing does not fit to offer walker. Bracing was able to fit the patient. She will use this whilee ambulator to help with discomfort. Encouraged RICE. Patient preferred crutches over walker. Will reefer to orthopedics for her acute on chronic knee pain. Also encouraged that she continue with her weight loss journey, has lost 70 lbs in recent months. Return precautions discussed. Discussed pain management. All of her questions and concerns were addressed, she is in agreement with this plan. HPI General Date/Time Provider Initiated Documentation: 06/19/21 10:01. Limitations to Documentation: no limitations. Information obtained by: patient and RN notes reviewed. History of Present Illness 50 year old F presents to the emergency department with the chief complaint of left knee pain, described as severe, with intensity rated at 9. Quality is described as aching, and is localized to the left and lower extremity. Patient reports no radiation. Patient started experiencing this minute(s) (acute on chronic pain) and it has been constant. improves with Immobilization improves symptom(s), Movement worsens symptoms . Patient notes no other symptoms.. Patient did receive the following treatments prior to arrival, none Related Data Home Medications Medication Instructions Recorded Confirmed venlafaxine 150 mg 300 mg PO DAILY cap 04/15/19 06/19/21 capsule,extended release 24 hr (Effexor XR) acetaminophen 500 mg capsule 500 mg PO Q6H PRN 06/10/19 06/19/21 carbamazepine 200 mg 400 mg PO BID cap 02/25/20 06/19/21 capsule,extended release [id number] trazodone 150 mg tablet 300 mg PO QHS tab 05/10/20 06/19/21 pantoprazole 20 mg tablet,delayed 20 mg PO QAM #90 tab 09/28/20 06/19/21 release risperidone 0.5 mg tablet 0.5 mg PO BID tab 10/19/20 06/19/21 (Risperdal) cephalexin 500 mg capsule 500 mg PO QID #28 cap 01/03/21 06/19/21 phenazopyridine 100 mg tablet 100 mg PO TID PRN #10 tab 01/03/21 06/19/21 (Pyridium) levothyroxine 100 mcg tablet 100 mcg PO DAILY #90 tab-cap 01/18/21 06/19/21 hydrochlorothiazide 12.5 mg tablet 12.5 mg PO DAILY AM #90 tab-cap 03/30/21 06/19/21 ibuprofen 800 mg tablet 800 mg PO TID PRN #120 tab 05/04/21 06/19/21 lidocaine 5 % topical patch 1 patch TOPICAL DAILY PRN #15 ea 06/19/21 (Lidoderm) Previous Rx's Medication Instructions Recorded pantoprazole 20 mg tablet,delayed 20 mg PO QAM #90 tab 09/28/20 release cephalexin 500 mg capsule 500 mg PO QID #28 cap 01/03/21 phenazopyridine 100 mg tablet 100 mg PO TID PRN #10 tab 01/03/21 (Pyridium) levothyroxine 100 mcg tablet 100 mcg PO DAILY #90 tab-cap 01/18/21 hydrochlorothiazide 12.5 mg tablet 12.5 mg PO DAILY AM #90 tab-cap 03/30/21 ibuprofen 800 mg tablet 800 mg PO TID PRN #120 tab 05/04/21 lidocaine 5 % topical patch 1 patch TOPICAL DAILY PRN #15 ea 06/19/21 (Lidoderm) Allergies Allergy/AdvReac Type Severity Reaction Status Date / Time gabapentin AdvReac Mild makes her Verified 06/19/21 09:25 feel drunk sumatriptan [From Imitrex] AdvReac Verified 06/19/21 09:25 General Stated Complaint: Orthopedic PEACE: 4 Review of Systems Constitutional Constitutional: Reports as per HPI, Denies chills, Denies fever(s) and Denies weakness Cardiovascular Cardiovascular: Reports as per HPI Respiratory Respiratory: Reports as per HPI and Denies cough Musculoskeletal Musculoskeletal: Reports as per HPI and Denies tingling Integumentary/Breasts Skin/Breast: Reports as per HPI, Denies rash and Denies wounds Neurologic Neurologic: Reports as per HPI, Denies tingling, Denies paresthesias and Denies weakness PFSH All Active Problems (Updated 06/19/21 @ 12:43 by NELLI Harris) Knee pain, left (Acute) Screening for colon cancer (Acute) Constipation (Acute) Obesity (Chronic) Medical History (Updated 06/19/21 @ 12:43 by NELLI Harris) Back pain Bipolar disorder, unspecified Bursitis of right shoulder Calcific tendinitis of right shoulder Cervicalgia Chronic pain Cryptogenic sensory polyneuropathy Legs Cystitis Gastroesophageal reflux disease Heel spur Hyperlipidemia, unspecified 09/2019 labs: 10-year ASCVD risk = ~0.7% Hypertension Resolved s/p bariatric surgery & weight loss; re-started med 02/2020 Hypothyroidism Impingement syndrome of left shoulder Impingement syndrome of right shoulder Insomnia Left knee pain Pain, joint, hip, left Plantar fasciitis Polycystic ovarian disease Scapulothoracic bursitis of both shoulders Sleep apnea Pt reports she had a negative sleep study --> ruled-out Social phobia, unspecified Moderate, [facility] Spondylosis without myelopathy or radiculopathy, cervical region Tendinitis of long head of biceps brachii of left shoulder Tendonitis of long head of biceps brachii of right shoulder Urinary incontinence Vitamin D deficiency, unspecified Surgical History (Updated 01/05/21 @ 13:17 by Vasu Brian NP) H/O arthroscopy of knee 2000 H/O exploratory laparotomy 1987 History of bariatric surgery S/P cholecystectomy 2000 S/P endoscopy 2012 S/P gastric bypass Laparoscopic sleeve S/P removal of ovarian cyst S/P tubal ligation 1992 Family History Mother Alcohol abuse Depression Diabetes Hypertension Father Alcohol abuse Cancer Heart disease Hypertension Sister Alcohol abuse Depression Hypertension Substance abuse Brother Alcohol abuse Substance abuse Brother No problems noted. Brother Depression Son No problems noted. Daughter Alcohol abuse Depression Substance abuse Social History Smoking/Tobacco Use Status: Former Tobacco Use tobacco type: cigarettes Quit Date: 04/08/12 Pack-years: 25 Tobacco: How many years used: 25 Second Hand Exposure: Yes Smoking risk assessment performed?: Yes Alcohol Intake: former Drug use: Never Counseling given: No Adopted: Yes Caregiver/Support person: No Foster care: Yes Household members: family and other Details: Lives with son & boyfriend Housing: apartment Number of Children: 2 Communication Needs: Hard of Hearing Education Level: high school Details: GED & Associate's degree in business Do you need help understanding health information?: Rarely current occupation: Disabled Pets and animals: Yes Pets and animals: dog(s) Sexually active: Yes Do you think of yourself as: straight/heterosexual Current gender identity: female What is your relationship status?: How often do you talk on the phone with friends or family?: three or more times per week How often do you get together with friends or relatives?: three or more times per week How often do you attend gnosticist or synagogue services?: 1-3 times per year Do you belong to any clubs or organized social groups?: no Panel score (0-1 are the most socially isolated patients): 1 What type of physical activity do you participate in: regular exercise Duration: 45-60 minutes/day Frequency: daily Renea/Religious: Episcopal Special renea needs: No Seatbelt use: always Helmet use: Yes Helmet use: always Drive intox or ride w/intox lokie driver: No Do you feel safe at home: Yes Do you feel safe in your relationship?: Yes Female Reproductive History Menstrual control method: permanent sterilization History History 3 Para 2 Hx # Term Pregnancies Multiple births Hx # Pregnancies Ectopic pregnancies AB induced Hx Number of Living Children AB spontaneous Exam Const General: cooperative, healthy appearing, comfortable, no acute distress, well developed and well groomed Nutritional Appearance: well nourished and obese Orientation: alert and awake Resp Effort & Inspection: normal respiratory effort, able to speak in complete sentences and no respiratory distress Cardio Rate: regular rate Rhythm: regular rhythm Skin General skin exam: no rashes or lesions noted Lesions: no lesions Rashes: no rashes Trauma: no lacerations or abrasions Neuro General: patient alert and patient awake Cognition: normal cognition Speech: speech normal Gait: normal gait Motor: muscle tone normal throughout Sensory Exam: no sensory deficits noted Extrem Knee images: 1. Area of maximal tenderness. Patient has pain diffusely but more along the anterior aspect. Able to straight leg raise. No palpable defect. No deformity, no discoloration or objective evidence of trauma. Exam and ROM limited secondary to body habitus. Ligamentously comparable to the contralatteral side with no notable laxity with varus/valgus stress testing and anterior/posterior drawer testting. 2+ distal pulsese. Full ROM ankle. Strength 5/5 compared to the contralateral side. Calf soft and nontender. Sensation intact. Psych Appearance: grossly normal and well kempt Mental Status: mental status grossly normal Speech and Movement: speech and movement normal Course Vital Signs Vital signs: Vital Signs Temperature 36.6 C 06/19/21 09:18 Pulse 86 03/14/22 09:18 Respiratory Rate 18 06/19/21 09:18 Blood Pressure 132/92 H 06/19/21 09:18 Pulse Oximetry 96 06/19/21 09:18 Temperature 36.6 C 06/19/21 09:18 Temperature Source Temporal Artery Scan 06/19/21 09:18 Pulse 86 06/19/21 09:18 Respiratory Rate 18 06/19/21 09:18 Respiratory Effort Non-Labored 06/19/21 09:24 Blood Pressure 132/92 H 06/19/21 09:18 Blood Pressure Position Sitting 06/19/21 09:18 Pulse Oximetry 96 06/19/21 09:18 Oxygen Delivery Method Room Air 06/19/21 09:18 Oxygen Flow Rate 0 06/19/21 09:18 Pain Level 9 06/19/21 09:18
--- NOTE | 2021-06-19 10:15 | DI.RAD_ITS ---
Exam(s) XR KNEE LT 4V AP,LAT,DIANE,PAT EXAM: XR KNEE LT 4V AP,LAT,DIANE,PAT CLINICAL HISTORY: felt pop with rotational injury. TECHNIQUE: 2D digital imaging was performed. Three views. COMPARISON: No exams were available for comparison FINDINGS: BONES: No acute fracture is present. No bony destructive lesion is seen. JOINTS: The knee is normally aligned. No joint effusion is seen. Joint spaces well maintained. Min imal periarticular spurring at the patella. SOFT TISSUE: Normal. IMPRESSION: Unremarkable radiographs of the left knee. DATA REPOSITORY: RADIATION DOSE DELIVERED:
[2021-06-19] MEDS: Ibuprofen 600 MG TAB PO (10:38)
[2021-06-19] MEDS: Acetaminophen 325 MG TAB 650 MG PO (10:38)
[2021-06-19] MEDS: Lidocaine 5% Patch 1 PATCH TP (12:09)
== END 2021-06-19 13:00 | disposition home or self-care (01) ==
PROVIDERS: Emergency Provider Physician Assistant; PCP Nurse Practitioner Family
DX: M25.562 Pain in left knee (principal); X50.1XXA Overexertion from prolonged static or awkward postures, initial encounter
CPT/HCPCS: 29505; 99283; 73564

== ENCOUNTER → 2021-06-26 07:50 | Outpatient (BNVA) | payer MEDICARE, MEDICAID, SELFPAY | PROVIDERS: PCP Nurse Practitioner Family; Referring Provider Student in an Organized Health Care Education/Training Program | DX: M23.92 Unspecified internal derangement of left knee (principal) | CPT/HCPCS: 99212 ==

== ENCOUNTER 2021-07-07 00:28 | Outpatient (CLI) | payer MEDICARE, MEDICAID, SELFPAY ==
--- NOTE | 2021-07-07 06:30 | DI.MRI_ITS ---
Exam(s) MR LOWER JOINT LT WO EXAM: MR LOWER JOINT LT WO CLINICAL HISTORY: LT KNEE PAIN, M25.562. TECHNIQUE: Multiplanar multisequence MRI was performed. COMPARISON: CR XR KNEE LT 4V AP,LAT,DINAE,PAT from 06/19/2021 FINDINGS: Examination limited by patient body habitus.The examination is limited due to patient motion artifact . BONES: There is no fracture or contusion pattern. JOINTS: Articular cartilage is unremarkable. There is a small joint effusion. TENDONS: Extensor mechanism: Unremarkable. Medial retinaculum: Unremarkable. Lateral retinaculum: Unremarkable. Popliteus: Unremarkable. MUSCLES: Unremarkable. MENISCI: There is high density signal seen in the root of the medial meniscus consistent with a tear. Degenerative signal is also seen within the meniscus. The lateral meniscus is unremarkable. SOFT TISSUES: There is nonspecific edema seen in the soft tissues around the knee. No focal fluid co llection or soft tissue mass is appreciated. LIGAMENTS: Anterior Cruciate: Unremarkable. Posterior Cruciate: Unremarkable. Medial Collateral:There is hyperintense signal seen around the medial collateral ligament. This is c onsistent with a sprain. Lateral Collateral: Unremarkable. OTHER: IMPRESSION: 1. Findings suspicious for tear at the root of the medial meniscus. 2. Sprain of the MCL. 3. Small joint effusion. DATA REPOSITORY:
== END 2021-07-07 00:48 ==
PROVIDERS: PCP Nurse Practitioner Family; Visit Provider Student in an Organized Health Care Education/Training Program
DX: M25.562 Pain in left knee (principal); S83.412A Sprain of medial collateral ligament of left knee, initial encounter; X58.XXXA Exposure to other specified factors, initial encounter
CPT/HCPCS: 73721

== ENCOUNTER → 2021-07-21 08:52 | Outpatient (BNVA) | payer MEDICARE, MEDICAID, SELFPAY | PROVIDERS: PCP Nurse Practitioner Family; Referring Provider Nurse Practitioner Family | DX: M23.92 Unspecified internal derangement of left knee (principal); S83.242A Other tear of medial meniscus, current injury, left knee, initial encounter; X58.XXXA Exposure to other specified factors, initial encounter | CPT/HCPCS: 20610; J1040 ==

== ENCOUNTER 2021-09-19 15:19 | Outpatient (REF) | payer MEDICARE, MEDICAID, SELFPAY ==
[2021-09-19 13:57] LABS: Bilirubin Negative (Negative); Blood Negative (Negative); Clarity Sl Cloudy (Clear); Glucose Negative (Negative); Ketones Negative (Negative); Leukocyte Esterase Trace (Negative); Nitrite Negative (Negative); Urobilinogen 0.2 EU/dL (Up TO 0.2); pH 7.5 (5-8)
[2021-09-19 14:04] LABS: Bacteria Few HPF (Negative); C & S Indicated? No/Sq. Contamination; Casts Negative LPF (Negative); Crystals Negative HPF (Negative); Epithelial Cells Many HPF (Negative); Mucus Trace (Negative); RBC 0-2 HPF (0-2)
== END 2021-09-19 15:20 | disposition home or self-care (01) ==
LOC: LBN 15:19
PROVIDERS: PCP Nurse Practitioner Family; Visit Provider Physician Assistant
DX: R39.89 Other symptoms and signs involving the genitourinary system (principal)
CPT/HCPCS: 81003; 81015

== ENCOUNTER 2021-10-10 02:58 | Outpatient (CLI) | payer MEDICARE, MEDICAID, SELFPAY | END 2021-10-10 02:59 | disposition home or self-care (01) | LOC: LBO 02:59 | PROVIDERS: PCP Nurse Practitioner Family; Visit Provider Student in an Organized Health Care Education/Training Program ==

== ENCOUNTER 2021-10-10 07:58 | Emergency (ER) | payer MEDICARE, MEDICAID, SELFPAY ==
--- NOTE | 2021-10-10 | DI.CT_ITS ---
Exam(s) CT ABDOMEN PELVIS WO EXAM: CT ABDOMEN PELVIS WO CLINICAL HISTORY: left lower quadrant abdominal pain. TECHNIQUE: Imaging Protocol: Axial computed tomography images with coronal and sagittal reformatted images were created and reviewed CONTRAST MATERIAL: Intravenous: none Oral: None COMPARISON: No exams were available for comparison FINDINGS: VISUALIZED LUNG BASES: Atelectasis in both lung bases as well as some mild infiltrate in the inferior lingular segment of the left lung. No pleural effusions. Calcified granuloma noted in the most inf erior aspect of the posterior basal segment of the right lower lobe.. ABDOMEN: There is evidence of prior bariatric surgery, specifically what appears to be gastric sleeve. Sleeve appears unremarkable. LIVER: There are no obvious focal hepatic lesions evident of this noninfused study. GALLBLADDER/BILIARY: The gallbladder surgically absent. CBD not dilated. PANCREAS: No evidence of pancreatic mass nor dilatation of the pancreatic duct. SPLEEN: Spleen size normal. Calcified splenic granulomas are noted. ADRENALS: Right adrenal gland unremarkable. Mild thickening of the genu of the left adrenal gland no shelly. KIDNEYS:No cysts evident. No solid renal masses. No calculi nor hydronephrosis. . ABDOMINAL AORTA: Not enlarged nor atherosclerotic. There is some mild streaking in the mesentery at and around the takeoff point of the superior mesenteric artery. There does not appear to be streakin g around the superior mesenteric vein in this patient who has had prior gastric sleeve surgery. LYMPH NODES: There is no retroperitoneal nor paraaortic adenopathy. ABDOMINAL WALL: No evidence of significant anterior abdominal wall nor inguinal hernia. GI: There is no evidence of bowel obstruction. However, in the upper descending left colon subjacent to the spleen there is some sys pericolonic streaking. There does not appear to be diverticuli at t his location nor obvious mass. No free air. No abscess. PELVIS: LYMPH NODES: There is no intrapelvic nor inguinal adenopathy. GI: No evidence of appendicitis.No evidence of sigmoid diverticulitis. URINARY BLADDER: No calculi nor obvious masses evident REPRODUCTIVE: Uterus and adnexal regions appear unremarkable. There is no free fluid in the pelvis. OSSEOUS: No significant osseous lesions. Sacroiliac joints unremarkable. No vertebral fractures evident. IMPRESSION: 1. There is some streaking around the upper descending colon in the left upper quadrant, not associat ed with diverticuli nor obvious mass. There is no free air at this level and there is no abscess. T his requires close follow-up, including colonoscopy. 2. Mild nonspecific streaking is noted in the fat surrounding the origin of the superior mesenteric a rtery. There is no stranding around the superior mesenteric vein in this patient who has had prior g astric sleeve bariatric surgery. 3. No bowel obstruction. No ascites. The gallbladder surgically absent. The biliary tree is not dilated. No renal calculi. Atelectasis in both lung bases noted. Perhaps mild infiltrate in the inferior lingular segment of th e left lung. Report called to ER provider appear RADIATION DOSE DELIVERED: 1,418.17mGy.cm Total DLP DATA REPOSITORY: All CT scans at this facility are submitted to the National Radiology Data Registry (NRDR) Dose Index Registry (DIR) with the [employer] (ACR). RADIATION OPTIMIZATION: All CT scans at this facility use at least one of these dose optimization te chniques: automated exposure control; mA and/or kV adjustment per patient size (includes targeted exa ms where dose is matched to clinical indication); or iterative reconstruction.
[2021-10-10 08:07] VITALS: BP 129/89; PULSE 86; RESP 18; TEMP 36.5; O2SAT 99
--- NOTE | 2021-10-10 08:31 | DI.RAD_ITS ---
Exam(s) XR CHEST 1V IN DI DEPT EXAM: XR CHEST 1V IN DI DEPT CLINICAL HISTORY: left pleuritic. TECHNIQUE: 2D digital imaging was performed. COMPARISON: CT CT ABDOMEN PELVIS WO from 10/10/2021 FINDINGS: Single AP portable view. Heart size is upper normal. The mediastinum is not widened. There is platelike atelectasis in both lung bases. Bordering on mild infiltrate in the inferior ling ular segment of the left lung. No pleural effusions. There is a calcified granuloma in the most inf erior aspect of the right lower lobe posterior basal segment, as also evident on the uppermost images of today's abdominal CT scan. IMPRESSION: Platelike atelectasis in both lung bases. Mild infiltrate in the inferior lingular segment of the le ft lung. No pleural effusions. DATA REPOSITORY: RADIATION DOSE DELIVERED: All CT scans at this facility use at least one of these dose optimization techniques: automated exposure control; mA and/or kV adjustment per patient size (includes targeted e xams where dose is matched to clinical indication); or iterative reconstruction.
[2021-10-10 08:49] LABS: Abs Immature Grans 0.02 10^3/uL (0.0-0.06); Absolute Basophil Count 0.04 10^3/uL (0.0-0.2); Absolute Eosinophil Count 0.06 10^3/uL (0.0-0.7); Absolute Lymphocyte Count 1.97 10^3/uL (1.2-3.4); Absolute Monocyte Count 0.56 10^3/uL (0.1-0.8); Absolute Neutrophil Count 3.39 10^3/uL (1.2-6.7); Basophils % 0.7; HCT 39.3 % (36.0-46.0); HGB 12.8 g/dL (11.2-15.7); Immature Grans % 0.3; Lymphocytes % 32.6; MCH 28.4 pg (27.0-33.0); MCHC 32.6 % (32.0-36.0); MCV 87 fL (80-95); Monocytes % 9.3; Neutrophils % 56.1; Platelet Count 258 10^3/uL (130-400); RDW 13.6 % (11.7-14.6); RDW-SD 42.9 fL; WBC 6.04 10^3/uL (4.4-10.8)
[2021-10-10 09:09] LABS: ALT 21 U/L (14-59); AST 24 U/L (15-37); Albumin 3.3 g/dL (3.4-5.0); Alkaline Phosphatase 106 U/L (46-116); BUN 11 mg/dL (7-18); Bilirubin, Total 0.3 mg/dL (0.2-1.0); CREATININE 0.8 mg/dL (0.55-1.02); Calcium 8.9 mg/dL (8.5-10.1); Chloride 100 mmol/L (98-107); Glucose 145 mg/dL (74-106); Lipase 51 U/L (73-393); Potassium 3.8 mmol/L (3.5-5.1); Sodium 136 mmol/L (136-145); Total Protein 7.4 g/dL (6.4-8.2)
--- NOTE | 2021-10-10 09:12 | W.ED.GENAD ---
Discharge Plan Disposition Patient Disposition: HOME Condition: Stable Discharge Details Clinical Impression: Abdominal pain, Lingular pneumonia Primary Care Provider: Vasu Brian ED Provider: Martha Nieves Home Meds and New Rx's Prescriptions: New amoxicillin-pot clavulanate 875-125 mg tablet 1 tab PO BID Qty: 14 0RF oxycodone 5 mg capsule 5 mg PO Q8H PRNQty: 7 0RF Continued venlafaxine [Effexor XR] 150 mg capsule,extended release 24hr 300 mg PO DAILY acetaminophen 500 mg capsule 500 mg PO Q6H PRN phenazopyridine [Pyridium] 100 mg tablet 100 mg PO TID PRN (Reason: pain) Qty: 10 0RF Rx Instructions: take capsule every 8 hours as needed for bladder spasms phenazopyridine [Pyridium] 200 mg tablet 200 mg PO TID PRN (Reason: pain) Qty: 6 0RF carbamazepine 200 mg capsule, ER multiphase 12 hr 400 mg PO BID levothyroxine 100 mcg tablet 100 mcg PO DAILY Qty: 90 3RF Rx Instructions: Administer in the morning on an empty stomach, at least 30-60 minutes before food hydrochlorothiazide 12.5 mg tablet 12.5 mg PO DAILY AM Qty: 90 3RF ibuprofen 800 mg tablet 800 mg PO TID PRN (Reason: pain) Qty: 120 3RF No Action trazodone 150 mg tablet 300 mg PO QHS PRN Label Comments: Pt reports she can take additional 150mg if she wakes up and can't sleep 05/10/20 risperidone [Risperdal] 0.5 mg tablet 0.5 mg PO DAILY Rx Instructions: note dated 10/06/20 [facility] [place] Discharge Instructions Instructions: Abdominal Pain (ED), Pneumonia (ED) Additional Instructions: Please follow-up with your primary care physician in 24 to 48 hours and return to the emergency department should you have new or worsening complaints Take Tylenol 650 mg every 4 hours and take oxycodone as needed for pain uncontrolled with Tylenol Should you develop fever, worsening pain, chills, please return for reassessment Referrals: Vasu Brian, DENTAL LAB TECHNICIAN [Primary Care Provider] - Discharge Data Discharge Date/Time-TO BE ENTERED AT DEPARTURE: 10/10/21 10:[address] results discussed with Dr. Dunn, radiologist with possible lingular infiltrate States he was stranding around colon per radiologist interpretation, concern for infectious etiology although no obvious diverticulosis, concern for diverticulitis her radiologist interpretation and in the presence of exquisite left upper quadrant pain, patient will be initiated on antibiotic We discussed additional imaging with oral and IV contrast however patient prefers to try antibiotics at this time and will return with persistent or worsening complaints for additional imaging Discharged home in stable condition with stable vitals Be admitted we will treat possible infiltrate versus diverticulitis Will take yogurt daily while on antibiotic Recheck with primary care physician in 24 to 48 hours recommended HPI General Date/Time Provider Initiated Documentation: 10/10/21 08:06. HPI Narrative: This 50-year-old female presents with report of sharp left upper quadrant pain which started 2 nights ago. Denies prior history of similar symptoms in the past. States the pain started this morning around 3 AM. States pain is exacerbated with walking and deep breathing. Denies cough or shortness of breath. Denies hematuria, nausea, vomiting, fever, chills. Inspection nonpalpable per patient. Denies prior history.. Denies any rashes or lesions. Denies any trauma. Denies any generalized myalgias. Denies any bloody stool. Denies any exogenous hormones, recent flights, surgeries, long drives. Related Data Home Medications Medication Instructions Recorded Confirmed venlafaxine 150 mg 300 mg PO DAILY 04/15/19 10/11/21 capsule,extended release 24 hr (Effexor XR) acetaminophen 500 mg capsule 500 mg PO Q6H PRN 06/10/19 10/11/21 carbamazepine 200 mg 400 mg PO BID 02/25/20 10/11/21 capsule,extended release [id number] phenazopyridine 100 mg tablet 100 mg PO TID PRN pain 6 doses #10 01/03/21 10/11/21 (Pyridium) tabs levothyroxine 100 mcg tablet 100 mcg PO DAILY #90 tab-caps 01/18/21 10/11/21 hydrochlorothiazide 12.5 mg tablet 12.5 mg PO DAILY AM #90 tab-caps 03/30/21 10/11/21 ibuprofen 800 mg tablet 800 mg PO TID PRN pain #120 tabs 05/04/21 10/11/21 phenazopyridine 200 mg tablet 200 mg PO TID PRN pain 6 doses #6 09/19/21 10/11/21 (Pyridium) tabs amoxicillin 875 mg-potassium 1 tab PO BID #14 tabs 10/10/21 10/11/21 clavulanate 125 mg tablet oxycodone 5 mg capsule 5 mg PO Q8H PRN #7 caps 10/10/21 10/11/21 risperidone 0.5 mg tablet 0.5 mg PO DAILY 10/11/21 10/11/21 (Risperdal) trazodone 150 mg tablet 300 mg PO QHS PRN 10/11/21 10/11/21 Previous Rx's Medication Instructions Recorded phenazopyridine 100 mg tablet 100 mg PO TID PRN pain 6 doses #10 01/03/21 (Pyridium) tabs levothyroxine 100 mcg tablet 100 mcg PO DAILY #90 tab-caps 01/18/21 hydrochlorothiazide 12.5 mg tablet 12.5 mg PO DAILY AM #90 tab-caps 03/30/21 ibuprofen 800 mg tablet 800 mg PO TID PRN pain #120 tabs 05/04/21 phenazopyridine 200 mg tablet 200 mg PO TID PRN pain 6 doses #6 09/19/21 (Pyridium) tabs amoxicillin 875 mg-potassium 1 tab PO BID #14 tabs 10/10/21 clavulanate 125 mg tablet oxycodone 5 mg capsule 5 mg PO Q8H PRN #7 caps 10/10/21 Allergies Allergy/AdvReac Type Severity Reaction Status Date / Time gabapentin AdvReac Mild makes her Verified 10/11/21 13:42 feel drunk sumatriptan [From Imitrex] AdvReac Verified 10/11/21 13:42 General Stated Complaint: Abd Prob PEACE: 3 Review of Systems All systems reviewed & are unremarkable except as noted in HPI and below PFSH All Active Problems (Updated 10/11/21 @ 15:06 by Vasu Brian NP) Infiltrate noted on imaging study (Acute) Abdominal pain (Acute) Lingular pneumonia (Acute) Acute medial meniscus tear of left knee (Acute) Internal derangement of left knee (Acute) Screening for colon cancer (Acute) Constipation (Acute) Obesity (Chronic) Medical History Back pain Bipolar disorder, unspecified Bursitis of right shoulder Calcific tendinitis of right shoulder Cervicalgia Chronic pain Cryptogenic sensory polyneuropathy Legs Cystitis Gastroesophageal reflux disease Heel spur Hyperlipidemia, unspecified 09/2019 labs: 10-year ASCVD risk = ~0.7% Hypertension Resolved s/p bariatric surgery & weight loss; re-started med 02/2020 Hypothyroidism Impingement syndrome of left shoulder Impingement syndrome of right shoulder Insomnia Left knee pain Pain, joint, hip, left Plantar fasciitis Polycystic ovarian disease Scapulothoracic bursitis of both shoulders Sleep apnea Pt reports she had a negative sleep study --> ruled-out Social phobia, unspecified Moderate, NKHS Spondylosis without myelopathy or radiculopathy, cervical region Tendinitis of long head of biceps brachii of left shoulder Tendonitis of long head of biceps brachii of right shoulder Urinary incontinence Vitamin D deficiency, unspecified Surgical History H/O arthroscopy of knee 2000 H/O exploratory laparotomy 1987 History of bariatric surgery S/P cholecystectomy 2000 S/P endoscopy 2012 S/P gastric bypass Laparoscopic sleeve S/P removal of ovarian cyst S/P tubal ligation 1992 Family History Mother Alcohol abuse Depression Diabetes Hypertension Father Alcohol abuse Cancer Heart disease Hypertension Sister Alcohol abuse Depression Hypertension Substance abuse Brother Alcohol abuse Substance abuse Brother No problems noted. Brother Depression Son No problems noted. Daughter Alcohol abuse Depression Substance abuse Social History Smoking/Tobacco Use Status: Former Tobacco Use tobacco type: cigarettes Quit Date: 04/08/12 Pack-years: 25 Tobacco: How many years used: 25 Second Hand Exposure: Yes Smoking risk assessment performed?: Yes Alcohol Intake: former Drug use: Never Substance use type: does not use Counseling given: No Adopted: Yes Caregiver/Support person: No Foster care: Yes Household members: family and other Details: Lives with son & boyfriend Housing: apartment Number of Children: 2 Communication Needs: Hard of Hearing Education Level: high school Details: GED & Associate's degree in business Do you need help understanding health information?: Rarely current occupation: Disabled Pets and animals: Yes Pets and animals: dog(s) Sexually active: Yes Do you think of yourself as: straight/heterosexual Current gender identity: female What is your relationship status?: How often do you talk on the phone with friends or family?: three or more times per week How often do you get together with friends or relatives?: three or more times per week How often do you attend restorationism or jew services?: 1-3 times per year Do you belong to any clubs or organized social groups?: no Panel score (0-1 are the most socially isolated patients): 1 What type of physical activity do you participate in: regular exercise Duration: 45-60 minutes/day Frequency: daily Renea/Yazidi: Yazidi Special renea needs: No Seatbelt use: always Helmet use: Yes Helmet use: always Drive intox or ride w/intox petroleum transport driver: No Do you feel safe at home: Yes Do you feel safe in your relationship?: Yes Female Reproductive History Menstrual control method: permanent sterilization History History 3 Para 2 Hx # Term Pregnancies Multiple births Hx # Pregnancies Ectopic pregnancies AB induced Hx Number of Living Children AB spontaneous Exam Const General: cooperative and no acute distress HENMT Mouth: oral mucosae normal Throat: uvula midline Eyes Sclera: sclerae normal Resp Effort & Inspection: normal respiratory effort Auscultation: clear to auscultation bilaterally Cardio Rate: regular rate Rhythm: regular rhythm Other: distal pulses intact GI Other: no abdominal bruit or pulsatile mass LUQ pain with palpation no cva tenderness Skin General skin exam: no rashes or lesions noted Neuro General: patient alert and patient oriented x3 Course Vital Signs Vital signs: Vital Signs Temperature 36.5 C 10/10/21 08:07 Pulse 86 10/10/21 08:07 Respiratory Rate 18 10/10/21 08:07 Blood Pressure 129/89 10/10/21 08:07 Pulse Oximetry 99 10/10/21 08:07 Temperature 36.5 C 10/10/21 08:07 Temperature Source Tympanic 10/10/21 08:07 Pulse 86 10/10/21 08:07 Respiratory Rate 18 10/10/21 08:07 Blood Pressure 129/89 10/10/21 08:07 Blood Pressure Position Sitting 10/10/21 08:07 Pulse Oximetry 99 10/10/21 08:07 Oxygen Delivery Method Room Air 10/10/21 08:07 Oxygen Flow Rate 0 10/10/21 08:07 Pain Level 8 10/10/21 08:07 Lab/Test Results Lab/Test Results: Laboratory Tests Range/Units 10/10/21 10/10/21 08:45 08:45 WBC (4.4-10.8) 10^3/uL 6.04 RBC (3.93-5.22) 10^6/uL 4.50 Hgb (11.2-15.7) g/dL 12.8 Hct (36.0-46.0) % 39.3 MCV (80-95) fL 87 MCH (27.0-33.0) pg 28.4 MCHC (32.0-36.0) % 32.6 RDW (11.7-14.6) % 13.6 Plt Count (130-400) 10^3/uL 258 MPV (8.0-11.0) fL 11.0 Immature Gran % 0.3 Neutrophils % 56.1 Lymphocytes % 32.6 Monocytes % 9.3 Eosinophils % 1.0 Basophils % 0.7 Nucleated RBC % (0.0-0.3) % 0.0 Absolute Neutrophils (1.2-6.7) 10^3/uL 3.39 Absolute Lymphocytes (1.2-3.4) 10^3/uL 1.97 Absolute Monocytes (0.1-0.8) 10^3/uL 0.56 Absolute Eosinophils (0.0-0.7) 10^3/uL 0.06 Absolute Basophils (0.0-0.2) 10^3/uL 0.04 Sodium (136-145) mmol/L 136 Potassium (3.5-5.1) mmol/L 3.8 Chloride (98-107) mmol/L 100 Carbon Dioxide (21.0-32.0) mmol/L 28.0 Anion Gap (3-11) mmol/L 8.0 BUN (7-18) mg/dL 11 Creatinine (0.55-1.02) mg/dL 0.8 Estimated GFR/1.73 m2 (mL/min/1.73m2) >= 60.00 Glucose (74-106) mg/dL 145 H Calcium (8.5-10.1) mg/dL 8.9 Total Bilirubin (0.2-1.0) mg/dL 0.3 AST (15-37) U/L 24 ALT (14-59) U/L 21 Alkaline Phosphatase (46-116) U/L 106 Total Protein (6.4-8.2) g/dL 7.4 Albumin (3.4-5.0) g/dL 3.3 L Lipase (73-393) U/L 51
[2021-10-10 09:35] LABS: Bilirubin Negative (Negative); Blood Negative (Negative); Clarity Clear (Clear); Glucose Negative (Negative); Ketones Negative (Negative); Leukocyte Esterase Negative (Negative); Nitrite Negative (Negative); Urobilinogen 0.2 EU/dL (Up TO 0.2)
[2021-10-10 09:40] VITALS: BP 125/75; PULSE 69; TEMP 36.5; O2SAT 98
[2021-10-10 11:24] LABS: Source Nasal/Nares
[2021-10-10 16:45] LABS: COVID-19 PCR Negative (Negative)
== END 2021-10-10 10:31 | disposition home or self-care (01) ==
PROVIDERS: Student in an Organized Health Care Education/Training Program; Emergency Provider Physician Assistant; PCP Nurse Practitioner Family
DX: R10.12 Left upper quadrant pain (principal); J18.8 Other pneumonia, unspecified organism; I10 Essential (primary) hypertension; Z20.822 Contact with and (suspected) exposure to COVID-19; Z77.22 Contact with and (suspected) exposure to environmental tobacco smoke (acute) (chronic); Z98.51 Tubal ligation status; Z90.49 Acquired absence of other specified parts of digestive tract; Z87.891 Personal history of nicotine dependence
CPT/HCPCS: 80053; 83690; 87635; 99284; 71045; 74176; 81003; 85025

== ENCOUNTER 2021-10-17 02:08 | Outpatient (CLI) | payer MEDICARE, MEDICAID, SELFPAY ==
[2021-10-17 12:48] LABS: Source Nasal/Nares
[2021-10-17 21:09] LABS: COVID-19 PCR Negative (Negative)
== END 2021-10-17 02:09 | disposition home or self-care (01) ==
PROVIDERS: PCP Nurse Practitioner Family; Visit Provider Student in an Organized Health Care Education/Training Program
DX: Z20.822 Contact with and (suspected) exposure to COVID-19 (principal); Z01.818 Encounter for other preprocedural examination
CPT/HCPCS: 87635

== ENCOUNTER 2021-10-18 07:38 | Day surgery (SDC) | payer MEDICARE, MEDICAID, SELFPAY ==
[2021-10-18] VITALS (12 sets, daily range): BP systolic 106–141; BP diastolic 72–91; PULSE 63–76; RESP 12–17; TEMP 35.9–36.7; O2SAT 94–99; BMI 48.4
--- NOTE | 2021-10-18 06:46 | ANES.PREOP_ITS ---
General Info Date of Service Date Performed: 10/18/21 Height: 5 ft 4 in Weight: 127.913 kg Body Mass Index (BMI): 48.4 Surgical Procedure: Operation Date: 10/18/21 10:40 Proposed Procedure Side Surgeon p Knee Arthroscopy, Partial Medial Menisectomy Left Steven Abreu MD Meds Allergies and Home Medications Allergies Allergy/AdvReac Type Severity Reaction Status Date / Time gabapentin AdvReac Mild makes her Verified 10/17/21 10:27 feel drunk sumatriptan [From Imitrex] AdvReac Verified 10/17/21 10:27 Home Medication Medication Instructions Recorded venlafaxine 150 mg 300 mg PO DAILY 04/15/19 capsule,extended release 24 hr (Effexor XR) carbamazepine 200 mg 400 mg PO BID 02/25/20 capsule,extended release [id number] phenazopyridine 100 mg tablet 100 mg PO TID PRN pain 6 doses #10 01/03/21 (Pyridium) tabs levothyroxine 100 mcg tablet 100 mcg PO DAILY #90 tab-caps 01/18/21 hydrochlorothiazide 12.5 mg tablet 12.5 mg PO DAILY AM #90 tab-caps 03/30/21 ibuprofen 800 mg tablet 800 mg PO TID PRN pain #120 tabs 05/04/21 phenazopyridine 200 mg tablet 200 mg PO TID PRN pain 6 doses #6 09/19/21 (Pyridium) tabs amoxicillin 875 mg-potassium 1 tab PO BID #14 tabs 10/10/21 clavulanate 125 mg tablet risperidone 0.5 mg tablet 0.5 mg PO DAILY 10/11/21 (Risperdal) trazodone 150 mg tablet 300 mg PO QHS PRN 10/11/21 acetaminophen 500 mg tablet 1,000 mg PO TID #90 tabs 10/18/21 hydrocodone 5 mg-acetaminophen 325 1 tab PO Q6H PRN pain #6 tabs 10/18/21 mg tablet Current Visit Medications: Current Medications Generic Name Dose Route Start Last Admin Trade Name Freq PRN Reason Stop Dose Admin Ringer's Solution 1,000 mls @ 80 mls/hr 10/18/21 06:00 IV 11/16/21 23:59 INFUSION [place]IS Cefazolin Sodium 3,000 mg/ 100 mls @ 200 mls/hr 10/18/21 06:00 Sodium Chloride IVPB 10/18/21 23:59 PREOP [place] IV Miscellaneous Supplies 1 each 10/18/21 06:00 Iv Access IV 11/16/21 23:59 DIRECTED [place] Sodium Chloride 0 ml 10/18/21 06:00 Normal Saline Flush 10 Ml Syr IV 11/16/21 23:59 PRN PRN Sodium Chloride 0 ml 10/18/21 06:00 Normal Saline 10 Ml Vial IJ 11/16/21 23:59 DIRECTED PRN Sterile Water 0 ml 10/18/21 06:00 Water,Injection,Sterile 10 Ml Vial IJ 11/16/21 23:59 DIRECTED PRN PFSH Active Problems Active Problems: Problem Status Onset Code Infiltrate noted on imaging study R93.89 Abdominal pain R10.9 Lingular pneumonia J18.9 Acute medial meniscus tear of left knee S83.242A Internal derangement of left knee M23.92 Screening for colon cancer Z12.11 Constipation K59.00 Obesity E66.9 Medical History Medical History Back pain Bipolar disorder, unspecified Bursitis of right shoulder Calcific tendinitis of right shoulder Cervicalgia Chronic pain Cryptogenic sensory polyneuropathy Legs Cystitis Gastroesophageal reflux disease Heel spur Hyperlipidemia, unspecified 09/2019 labs: 10-year ASCVD risk = ~0.7% Hypertension Resolved s/p bariatric surgery & weight loss; re-started med 02/2020 Hypothyroidism Impingement syndrome of left shoulder Impingement syndrome of right shoulder Insomnia Left knee pain Pain, joint, hip, left Plantar fasciitis Polycystic ovarian disease Scapulothoracic bursitis of both shoulders Sleep apnea Pt reports she had a negative sleep study --> ruled-out Social phobia, unspecified Moderate, NKHS Spondylosis without myelopathy or radiculopathy, cervical region Tendinitis of long head of biceps brachii of left shoulder Tendonitis of long head of biceps brachii of right shoulder Urinary incontinence Vitamin D deficiency, unspecified Surgical History Surgical History H/O arthroscopy of knee 2000 H/O exploratory laparotomy 1988 History of bariatric surgery S/P cholecystectomy 2000 S/P endoscopy 2012 S/P gastric bypass Laparoscopic sleeve S/P removal of ovarian cyst S/P tubal ligation 1992 Tobacco Smoking/Tobacco Use Status: Former Tobacco Use Passive smoking exposure: Yes Second hand exposure: Yes Alcohol Alcohol Intake: former Substance Use Substance use: Never Substance use type: does not use Prental History History 3 Para 2 Hx # Term Pregnancies Multiple births Hx # Pregnancies Ectopic pregnancies AB induced Hx Number of Living Children AB spontaneous Vital Signs and Lab Results Vital Signs Most Recent Vital Signs in EMR: Temp Pulse Resp BP Pulse Ox 36.7 C 76 16 140/87 97 10/18/21 08:17 10/18/21 08:17 10/18/21 08:17 10/18/21 08:17 10/18/21 08:17 Lab Results Blood Type / Crossmatch: No Data to Display Complete Blood Count: White Blood Count 6.04 10^3/uL (4.4-10.8) 10/10/21 08:45 Red Blood Count 4.50 10^6/uL (3.93-5.22) 10/10/21 08:45 Hemoglobin 12.8 g/dL (11.2-15.7) 10/10/21 08:45 Hematocrit 39.3 % (36.0-46.0) 10/10/21 08:45 Platelet Count 258 10^3/uL (130-400) 10/10/21 08:45 Complete Metabolic Panel: Sodium Level 136 mmol/L (136-145) 10/10/21 08:45 Potassium Level 3.8 mmol/L (3.5-5.1) 10/10/21 08:45 Chloride Level 100 mmol/L (98-107) 10/10/21 08:45 Carbon Dioxide Level 28.0 mmol/L (21.0-32.0) 10/10/21 08:45 Blood Urea Nitrogen 11 mg/dL (7-18) 10/10/21 08:45 Creatinine 0.8 mg/dL (0.55-1.02) 10/10/21 08:45 Estimated GFR/1.73 m2 >= 60.00 (mL/min/1.73m2) 10/10/21 08:45 Calcium Level 8.9 mg/dL (8.5-10.1) 10/10/21 08:45 Albumin 3.3 g/dL (3.4-5.0) L 10/10/21 08:45 Glucose Level 145 mg/dL (74-106) H 10/10/21 08:45 Liver Function Panel: Alanine Aminotransferase (ALT/SGPT) 21 U/L (14-59) 10/10/21 08: 45 Aspartate Amino Transf (AST/SGOT) 24 U/L (15-37) 10/10/21 08:45 Coagulation Panel: No Data to Display Cardiac Panel: No Data to Display Arterial Blood Gas: No Data to Display Venous Blood Gas: No Data to Display Pancreas Panel: Lipase 51 U/L (73-393) 10/10/21 08:45 Thyroid Panel: No Data to Display Infectious Disease: Coronavirus (COVID-19)(PCR) Negative (Negative) 10/17/21 08:28 Coronavirus 2019 Source Nasal/Nares 10/17/21 08:28 Blood Cultures: No Data to Display Toxicology Panel: No Data to Display Panel: No Data to Display Anesthesia Assessment and Plan Anesthesia History Personal History: No History of Anesthesia Complications Family History: No Family History of Anesthesia Complications Exercise Tolerance Exercise Tolerance: Metabolic Equivalents>4 Cardiac & Pulmonary Exam Cardiac Exam: Normal S1/S2 Heart Sounds Pulmonary Exam: Clear Bilateral Breath Sounds Implantable Cardiac Device Does patient have a Pacemaker or an ICD?: No Airway Exam Known Difficult Airway: No Mallampati Class: 4 Mouth Opening: Narrow (< 3cm) Thyromental Distance: Greater than 3 cm Neck Range of Motion: Full ROM Neck Circumference: Normal Teeth Condition: Edentulous ASA Classification ASA Score: ASA 3 Emergency Case?: No NPO Status NPO Status: NPO Clears >2 hours, Solids >8 hours Status Status: Not Relevant due to Medical History Anesthesia Plan Resuscitation Status: Full Code Anesthesia Technique: General Anesthesia Airway Planned: Endotracheal Tube Monitors Used: Standard Monitors Preoperative Comments:: 50 yo female for knee scope. Sig PMHx: BMI 48, GERD (does not have this anymore, sleeps HOB flat), bipolar, cryptogenic sensory polyneuropathy, HTN (HCTZ), hypothyroidism (on replacement), former smoker.
[2021-10-18] MEDS: Lactated Ringers 1,000 ML 80 ML IV ×2 (08:50→11:51)
--- NOTE | 2021-10-18 09:10 | PDOC.DSDIS_ITS ---
Discharge Plan Disposition Patient Disposition: HOME Condition: Good Discharge Details Reason For Visit: Left knee arthroscopy Attending Provider: Steven Abreu Primary Care Provider: Vasu Brian Home Meds and New Rx's Prescriptions: New acetaminophen 500 mg tablet 1,000 mg PO TID Qty: 90 0RF hydrocodone-acetaminophen 5-325 mg tablet 1 tab PO Q6H PRN (Reason: pain) Qty: 6 0RF Continued venlafaxine [Effexor XR] 150 mg capsule,extended release 24hr 300 mg PO DAILY trazodone 150 mg tablet 300 mg PO QHS PRN Label Comments: 10/18/21 pt reports she hasnt taken this for a couple of months. Pt reports she can take additional 150mg if she wakes up and can't sleep 05/10/20 phenazopyridine [Pyridium] 100 mg tablet 100 mg PO TID PRN (Reason: pain) Qty: 10 0RF Rx Instructions: take capsule every 8 hours as needed for bladder spasms phenazopyridine [Pyridium] 200 mg tablet 200 mg PO TID PRN (Reason: pain) Qty: 6 0RF carbamazepine 200 mg capsule, ER multiphase 12 hr 400 mg PO BID levothyroxine 100 mcg tablet 100 mcg PO DAILY Qty: 90 3RF Rx Instructions: Administer in the morning on an empty stomach, at least 30-60 minutes before food hydrochlorothiazide 12.5 mg tablet 12.5 mg PO DAILY AM Qty: 90 3RF ibuprofen 800 mg tablet 800 mg PO TID PRN (Reason: pain) Qty: 120 3RF risperidone [Risperdal] 0.5 mg tablet 0.5 mg PO DAILY Rx Instructions: note dated 10/06/20 [facility] amoxicillin-pot clavulanate 875-125 mg tablet 1 tab PO BID Qty: 14 0RF Discontinued acetaminophen 500 mg capsule 500 mg PO Q6H PRN oxycodone 5 mg capsule 5 mg PO Q8H PRNQty: 7 0RF Discharge Instructions Stand Alone Forms: [facility] Knee Arthroscopy Referrals: Steven Abreu MD [ [facility] STAFF PHYSICIAN] - Equipment/Supplies: Partial Weight Bearing Crutches Activity:: Activity as Tolerated Remove Dressings/Wound Care:: 48 hours Shower/Bathe:: 48 hours Diet:: As Tolerated Discharge Orders Discharge Orders: Discharge Order (Routine); Ordered 10/18/21 Ordered By: Tl Medina
--- NOTE | 2021-10-18 09:17 | HPE_ITS ---
Assessment and Plan Assessment and plan (1) Acute medial meniscus tear of left knee: Status: Acute Assessment and plan: Erin is a 50-year-old who has a meniscal tear about the left knee. She has failed nonoperative treatment options and she is here today for arthroscopic partial medial meniscectomy and synovectomy. I reviewed the treatment with her. I discussed the risk of the procedure to include bleeding, infection, pain, stiffness, continued symptoms, retear, worsening arthritis, blood clot. Despite these risk, she elects to proceed. History of Present Illness History of Present Illness Chief Complaint: Left knee pain Narrative: Erin is a 50-year-old female who I saw previously for the left knee. She suffered a twisting injury back in March 2021 and since has had persistent pain of the left knee. She has mechanical symptoms of pinpoint pain over the posterior aspect of the left knee. MRI was used to evaluate this left knee and confirmed a medial meniscal tear near to the root. We have tried nonoperative treatment options but she continues to have pain. Given the failure of nonoperative treatment options I offered operative intervention and she is here for that today. She has had no sick contacts. She has had no exacerbations of any medical issues. She has no COVID-19 contacts and is COVID-19 negative. Review of Systems All systems reviewed & are unremarkable except as noted in HPI and below PFSH All Active Problems Infiltrate noted on imaging study (Acute) Abdominal pain (Acute) Lingular pneumonia (Acute) Acute medial meniscus tear of left knee (Acute) Internal derangement of left knee (Acute) Screening for colon cancer (Acute) Constipation (Acute) Obesity (Chronic) Medical History Back pain Bipolar disorder, unspecified Bursitis of right shoulder Calcific tendinitis of right shoulder Cervicalgia Chronic pain Cryptogenic sensory polyneuropathy Legs Cystitis Gastroesophageal reflux disease Heel spur Hyperlipidemia, unspecified 09/2019 labs: 10-year ASCVD risk = ~0.7% Hypertension Resolved s/p bariatric surgery & weight loss; re-started med 02/2020 Hypothyroidism Impingement syndrome of left shoulder Impingement syndrome of right shoulder Insomnia Left knee pain Pain, joint, hip, left Plantar fasciitis Polycystic ovarian disease Scapulothoracic bursitis of both shoulders Sleep apnea Pt reports she had a negative sleep study --> ruled-out Social phobia, unspecified Moderate, NKHS Spondylosis without myelopathy or radiculopathy, cervical region Tendinitis of long head of biceps brachii of left shoulder Tendonitis of long head of biceps brachii of right shoulder Urinary incontinence Vitamin D deficiency, unspecified Surgical History H/O arthroscopy of knee 2000 H/O exploratory laparotomy 1987 History of bariatric surgery S/P cholecystectomy 2000 S/P endoscopy 2012 S/P gastric bypass Laparoscopic sleeve S/P removal of ovarian cyst S/P tubal ligation 1992 Family History Mother Alcohol abuse Depression Diabetes Hypertension Father Alcohol abuse Cancer Heart disease Hypertension Sister Alcohol abuse Depression Hypertension Substance abuse Brother Alcohol abuse Substance abuse Brother No problems noted. Brother Depression Son No problems noted. Daughter Alcohol abuse Depression Substance abuse Social History Smoking/Tobacco Use Status: Former Tobacco Use tobacco type: cigarettes Quit Date: 04/08/12 Pack-years: 25 Tobacco: How many years used: 25 Second Hand Exposure: Yes Smoking risk assessment performed?: Yes Alcohol Intake: former Drug use: Never Substance use type: does not use Counseling given: No Adopted: Yes Caregiver/Support person: No Foster care: Yes Household members: family and other Details: Lives with son & boyfriend Housing: apartment Number of Children: 2 Communication Needs: Hard of Hearing Education Level: high school Details: GED & Associate's degree in business Do you need help understanding health information?: Rarely current occupation: Disabled Pets and animals: Yes Pets and animals: dog(s) Sexually active: Yes Do you think of yourself as: straight/heterosexual Current gender identity: female What is your relationship status?: How often do you talk on the phone with friends or family?: three or more times per week How often do you get together with friends or relatives?: three or more times per week How often do you attend taoism or congregational services?: 1-3 times per year Do you belong to any clubs or organized social groups?: no Panel score (0-1 are the most socially isolated patients): 1 What type of physical activity do you participate in: regular exercise Duration: 45-60 minutes/day Frequency: daily Renea/Lutheran: Rastafari Special renea needs: No Seatbelt use: always Helmet use: Yes Helmet use: always Drive intox or ride w/intox construction driver: No Do you feel safe at home: Yes (partner in room) Do you feel safe in your relationship?: Yes Additional Social history: unable to assess privately Female Reproductive History Menstrual control method: permanent sterilization History History 3 Para 2 Hx # Term Pregnancies Multiple births Hx # Pregnancies Ectopic pregnancies AB induced Hx Number of Living Children AB spontaneous Meds Allergies and Home Medications Allergies Allergy/AdvReac Type Severity Reaction Status Date / Time gabapentin AdvReac Mild makes her Verified 10/17/21 10:27 feel drunk sumatriptan [From Imitrex] AdvReac Verified 10/17/21 10:27 Home Medications Medication Instructions Recorded Confirmed Type venlafaxine 150 mg 300 mg PO DAILY 04/15/19 10/18/21 History capsule,extended release 24 hr (Effexor XR) carbamazepine 200 mg 400 mg PO BID 02/25/20 10/18/21 History capsule,extended release [id number] phenazopyridine 100 mg tablet 100 mg PO TID PRN pain 6 doses #10 01/03/21 10/18/21 Rx (Pyridium) tabs levothyroxine 100 mcg tablet 100 mcg PO DAILY #90 tab-caps 01/18/21 10/18/21 Rx hydrochlorothiazide 12.5 mg tablet 12.5 mg PO DAILY AM #90 tab-caps 03/30/21 10/18/21 Rx ibuprofen 800 mg tablet 800 mg PO TID PRN pain #120 tabs 05/04/21 10/18/21 Rx phenazopyridine 200 mg tablet 200 mg PO TID PRN pain 6 doses #6 09/19/21 10/18/21 Rx (Pyridium) tabs amoxicillin 875 mg-potassium 1 tab PO BID #14 tabs 10/10/21 10/18/21 Rx clavulanate 125 mg tablet risperidone 0.5 mg tablet 0.5 mg PO DAILY 10/11/21 10/18/21 History (Risperdal) trazodone 150 mg tablet 300 mg PO QHS PRN 10/11/21 10/18/21 History acetaminophen 500 mg tablet 1,000 mg PO TID #90 tabs 10/18/21 Rx hydrocodone 5 mg-acetaminophen 325 1 tab PO Q6H PRN pain #6 tabs 10/18/21 Rx mg tablet Exam Resp Auscultation: clear to auscultation bilaterally Cardio Rate: regular rate Rhythm: regular rhythm Results Last Vital Signs Temp 36.7 C 10/18/21 08:17 Pulse 76 10/18/21 08:17 Resp 16 10/18/21 08:17 BP 140/87 10/18/21 08:17 Pulse Ox 97 10/18/21 08:17
[2021-10-18] MEDS: ceFAZolin 3,000 MG in Normal Saline 100 ML 200 MG IVPB (09:37)
[2021-10-18] MEDS: Bupivacaine 0.5% Pres-Free 30 ML VIAL (10:04)
--- NOTE | 2021-10-18 10:54 | W.ANESPOSTOP ---
Postoperative Evaluation Date, Time and Location Date Performed: 10/18/21 Time Performed: 10:54 Patient Location: PACU Vital Signs Most Recent Imported Vital Signs: Most Recent Vital Signs Temp Pulse Resp BP Pulse Ox 36.7 C 76 16 140/87 97 10/18/21 08:17 10/18/21 08:17 10/18/21 08:17 10/18/21 08:17 10/18/21 08:17 Pain Score Most Recent Pain Score: Most Recent Pain Score Pain Level 5 10/18/21 08:17 Assessment Mental Status: Arousable with meaningful communication Airway and Respiratory Function: Patent airway with normal (patient baseline) respiratory exam Cardiovascular Function: Hemodynamically Stable Hydration Status: Adequately Hydrated Nausea & Vomiting: No Nausea or Vomiting Pain: Pain is tolerable per patient Peripheral Nerve Block: Patient did not receive a nerve block
[2021-10-18] MEDS: HYDROmorphone 2 MG/ML VIAL IVP ×4 (11:00→12:03)
[2021-10-18] MEDS: Normal Saline 10 ML VIAL IJ (11:01)
--- NOTE | 2021-10-18 11:08 | W.PM.OP ---
Date of service: 10/18/21 Time of Service: 10:50 Operative Note Operative Note DATE OF PROCEDURE: 10/18/21 PRE-OP DIAGNOSIS: Left Knee Medial Meniscus Tear POST-OP DIAGNOSIS: same PROCEDURE: Left Knee Arthroscopic Partial Medial Menisectomy SURGEON: Steven Abreu Refer to Anesthesia Record ESTIMATED BLOOD LOSS: 0 PATHOLOGY: none sent COMPLICATIONS: None Patient was transported to: PACU Patient's condition: stable Indications: I have seen Erin in clinic for symptoms of a meniscus tear. This was confirmed based on MRI and exam findings. Nonoperative measures were exhausted but disability and pain persisted. I discussed knee arthroscopy with meniscal intervention with the patient. I reviewed the risks of the procedure to include, but not limited to, bleeding, infection, pain, stiffness, damage to nerves or vessels, recurrence, blood clot. Despite these risks, the patient elected to proceed. 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 The consent was reviewed with the patient and signed. The history and physical was updated. All questions were answered. She was taken back to the operating room. The patient was placed into the supine position on the operating room table. All bony prominences were well padded. Prophylactic antibiotics in the form of Cefazolin were administered. The left leg was then prepped with Chloraprep and draped in a standard fashion with stockinette and extremity drape. A timeout to confirm correct identity, side and site, procedure, allergies, anesthesia, and medical concerns was performed. The leg was placed into a pneumatic leg wallace, [id number]. A standard lateral portal was made at the lateral border of the patella tendon in line with the inferior pole of the patella, soft spot. The skin and deep tissue was incised sharply and the blunt trochar was inserted atraumatically. A diagnostic arthroscopy was performed and the findings are listed above. The suprapatellar pouch had moderate inflammatory change. The patellofemoral articulation showed no articular damage as well as good tracking. The lateral gutter had no loose bodies and the medial gutter had no loose bodies. The knee was brought into some valgus stress in extension to open the medial compartment. A medial portal was made, localized by a spinal needle. The portal was created with an #11 blade through skin and capsule under direct visualization avoiding any meniscal injury. A probe was then inserted into the medial compartment. The medial compartment was fully inspected. The chondral surface of the tibia showed Grade II chondromalcia over the central portion of the tibia and the surface of the femur showed more global Grade II chondromalacia. The medial meniscus had a complex tear of the posterior meniscus, just adjacent to the posterior root. There was a primary radial tear which disconnected the body of the meniscus from the root with some instability of the body fragment from the periphery. After evaluation, the meniscus was debrided down to a stable base using a series of biters and arthroscopic nela. It was probed afterwards to confirm that the tear had been removed and the meniscus was stable. Cartilage surfaces were debrided of any flaps, leaving any intact fibers. The notch was then inspected which showed an intact ACL and an intact PCL. The leg was then brought into a figure of 4 position. The lateral compartment was fully inspected with the arthroscope and a probe. The chondral surface of the lateral femur showed no significant chondromalacia. The chondral surface of the lateral tibia showed no significant chondromalacia. The lateral meniscus had no meniscal tear. The arthroscope was brought back into the suprapatellar pouch and the leg was in full extension. Some of the bulky inflammatory tissue and synovitis was debrided in this area. The knee was thoroughly irrigated with the arthroscopic fluid on high flow and pressure. Inflow was stopped and excess fluid was removed. The wounds were closed with 4-0 Nylon. They were dressed with Xeroform, 4x4 gauze, ABD pad, Kerlix and an EL wrap. A cryo-cuff was applied. The patient tolerated the procedure well and was returned to the Same Day Surgery area in a stable condition suffering no known complication.
[2021-10-18] MEDS: HYDROcodone 5/Acetaminophen 325 TAB PO (12:38)
== END 2021-10-18 13:40 | disposition home or self-care (01) ==
PROVIDERS: PCP Nurse Practitioner Family; Visit Provider Student in an Organized Health Care Education/Training Program
PROC: (CPT 29870; principal; 2021-10-18 10:30)
DX: S83.242A Other tear of medial meniscus, current injury, left knee, initial encounter (principal); X50.1XXA Overexertion from prolonged static or awkward postures, initial encounter; K59.00 Constipation, unspecified; E66.9 Obesity, unspecified; Z68.42 Body mass index [BMI] 45.0-49.9, adult; E78.5 Hyperlipidemia, unspecified; E03.9 Hypothyroidism, unspecified; I10 Essential (primary) hypertension
CPT/HCPCS: 29881; J0690; J1100; J1885; J2405; J2704

== ENCOUNTER → 2021-10-27 09:21 | Outpatient (BNVA) | payer MEDICARE, MEDICAID, SELFPAY | PROVIDERS: PCP Nurse Practitioner Family; Referring Provider Nurse Practitioner Family; Visit Provider Student in an Organized Health Care Education/Training Program | DX: Z47.89 Encounter for other orthopedic aftercare (principal); X58.XXXD Exposure to other specified factors, subsequent encounter; S83.242D Other tear of medial meniscus, current injury, left knee, subsequent encounter ==

== ENCOUNTER → 2021-11-24 08:09 | Outpatient (BNVA) | payer MEDICARE, MEDICAID, SELFPAY | PROVIDERS: PCP Nurse Practitioner Family; Referring Provider Nurse Practitioner Family; Visit Provider Physician Assistant Surgical | DX: Z47.89 Encounter for other orthopedic aftercare (principal); X58.XXXA Exposure to other specified factors, initial encounter; S83.242A Other tear of medial meniscus, current injury, left knee, initial encounter; M76.52 Patellar tendinitis, left knee ==

== ENCOUNTER 2021-12-07 10:17 | Outpatient (REF) | payer MEDICARE, MEDICAID, SELFPAY | END 2021-12-07 10:18 | disposition home or self-care (01) | LOC: LBN 10:17 | PROVIDERS: PCP Nurse Practitioner Family; Visit Provider Physician Assistant | DX: J02.9 Acute pharyngitis, unspecified (principal) | CPT/HCPCS: 87070 ==

== ENCOUNTER 2022-01-11 02:26 | Outpatient (CLI) | payer MEDICARE, MEDICAID, SELFPAY ==
[2022-01-11 13:26] LABS: TSH (W/Ref FT4) 2.18 uIU/mL (0.36-3.74)
== END 2022-01-11 02:27 | disposition home or self-care (01) ==
LOC: LOS 02:26
PROVIDERS: PCP Nurse Practitioner Family; Visit Provider Nurse Practitioner Family
DX: E03.9 Hypothyroidism, unspecified (principal)
CPT/HCPCS: 36415; 84443

== ENCOUNTER → 2022-01-15 08:08 | Outpatient (BNVA) | payer MEDICARE, MEDICAID, SELFPAY | PROVIDERS: PCP Nurse Practitioner Family; Referring Provider Nurse Practitioner Family; Visit Provider Student in an Organized Health Care Education/Training Program | DX: Z47.89 Encounter for other orthopedic aftercare (principal); S83.242D Other tear of medial meniscus, current injury, left knee, subsequent encounter; X58.XXXD Exposure to other specified factors, subsequent encounter ==

== ENCOUNTER 2022-02-23 10:04 | Outpatient (CLI) | payer MEDICARE, MEDICAID, SELFPAY ==
--- NOTE | 2022-02-23 09:30 | DI.RAD_ITS ---
Exam(s) XR KNEE RT 3V AP,LAT,DIANE EXAM: XR KNEE RT 3V AP,LAT,DIANE CLINICAL HISTORY: R knee pain. TECHNIQUE: 2D digital imaging was performed. COMPARISON: CR XR KNEE LT 4V AP,LAT,DIANE,PAT from 06/19/2021 FINDINGS: 3 views No evidence of fracture or prominent joint effusion. Minimal narrowing of medial compartment. No os teophytes. Lateral compartment unremarkable. Patellofemoral compartment unremarkable. Bone density normal. No osseous lesions. IMPRESSION: Minimal findings as described above. No osseous lesions. DATA REPOSITORY: RADIATION DOSE DELIVERED:
== END 2022-02-23 10:05 | disposition home or self-care (01) ==
LOC: DIORS 10:04
PROVIDERS: PCP Nurse Practitioner Family; Referring Provider Nurse Practitioner Family; Visit Provider Physician Assistant
DX: M23.91 Unspecified internal derangement of right knee (principal)
CPT/HCPCS: 73562; 99213

== ENCOUNTER → 2022-03-19 02:06 | Outpatient (CLI) | payer MEDICARE, MEDICAID, SELFPAY ==
--- NOTE | 2022-03-19 07:00 | DI.MRI_ITS ---
Exam(s) MR LOWER JOINT RT WO EXAM: MR LOWER JOINT RT WO CLINICAL HISTORY: PAIN,internal derangement rt knee,.m23.91 TECHNIQUE: Multiplanar multisequence MRI of the knee was performed. COMPARISON: MR MR LOWER JOINT LT WO from 07/07/2021 CR XR KNEE RT 3V AP,LAT,DIANE from 02/23/2022 FINDINGS: EFFUSION: There is a prominent joint effusion filling the suprapatellar bursa. There is no Whitmore cys t. MARROW:There is some bone edema evident in the medial tibial plateau subarticular region. No signifi cant osseous lesions. PATELLOFEMORAL COMPARTMENT: The quadriceps tendon is intact. The patellar ligament is intact. There is mild focal thinning of the retropatellar cartilage mid aspect no deep fissure. No osteochon dral defect. No abnormal signal within the patella itself.There is no intraosseous signal to suggest recent patellar dislocation. There are no patellar retinacular tears. CRUCIATE LIGAMENTS: The anterior cruciate ligament is intact.The posterior cruciate ligament is intac t. MEDIAL COMPARTMENT/MEDIAL MENISCUS: There is a tear of the posterior horn of the medial meniscus just medial to the root. The a separation at this level is 7 millimeters. There is mild extrusion of th e posterior horn. Anterior horn is intact. There is some mild subarticular bone edema in the most p osterior aspect of weight-bearing surface of the medial femoral condyle. Mild cartilage thinning not ed in the medial compartment. No osteochondral defects. There are no chondral defects, osteochondral defects, subarticular marrow edema, nor osteophytes evid ent. MEDIAL COLLATERAL LIGAMENT: Sprain signal. No high-grade tear. LATERAL COMPARTMENT/LATERAL MENISCUS: There is no evidence of lateral meniscal tear.There are no adelina dral defects, osteochondral defects, subarticular marrow edema, nor osteophytes evident. ILIOTIBIAL BAND: Intact LATERAL COLLATERAL LIGAMENT COMPLEX: The fibular collateral ligament is intact. The biceps femoris t endon is intact.Popliteus muscle and tendon are intact. IMPRESSION: 1. There is a vertical tear through the posterior of the medial meniscus at the level of the root wit h approximately 7 millimeter separation at the meniscal tear site. Mild outward extrusion of the pos terior horn. There is some bone edema in the subjacent medial tibial plateau. The anterior horn of the medial meniscus appears intact. There are mild degenerative cartilage thinning changes in the me dial compartment. No osteochondral defects. No osteophytes. 2. No significant findings in the lateral meniscus/lateral compartment. 3. There are no cruciate ligament tears. 4. There is sprain signal noted in the medial collateral ligament. There does not appear to be a ful l-thickness tear of this structure. Lateral collateral ligament complex appears intact. 5. Prominent joint effusion. There is no Whitmore cyst. DATA REPOSITORY:
== END ==
PROVIDERS: PCP Nurse Practitioner Family; Visit Provider Student in an Organized Health Care Education/Training Program
DX: M23.8X1 Other internal derangements of right knee; M25.561 Pain in right knee; M25.461 Effusion, right knee; S83.241A Other tear of medial meniscus, current injury, right knee, initial encounter; S83.411A Sprain of medial collateral ligament of right knee, initial encounter; X58.XXXA Exposure to other specified factors, initial encounter
CPT/HCPCS: 73721

== ENCOUNTER 2022-04-03 09:19 | Day surgery (SDC) | payer MEDICARE, MEDICAID, SELFPAY ==
[2022-04-03] VITALS (10 sets, daily range): BP systolic 101–132; BP diastolic 62–83; PULSE 61–86; RESP 10–20; TEMP 36.1–36.6; O2SAT 94–98; BMI 45.1
--- NOTE | 2022-04-03 07:57 | W.PM.DSUDISC ---
Date of service: 04/03/22 Time of Service: 07:58 Discharge Plan Disposition Patient Disposition: Home Condition: Good Discharge Details Reason For Visit: Right knee medial meniscus tear Attending Provider: Steven Abreu Primary Care Provider: Vasu Brian Home Meds and New Rx's Prescriptions: New acetaminophen 500 mg tablet 500 mg PO Q6H PRN (Reason: pain) Qty: 60 2RF ibuprofen 600 mg tablet 600 mg PO TID PRN (Reason: pain) Qty: 60 0RF hydrocodone-acetaminophen 5-325 mg tablet 1 tab PO Q6H PRN (Reason: severe pain) Qty: 6 0RF Rx Instructions: Take one tablet up to every 6 hours as needed for severe postoperative pain Continued venlafaxine [Effexor XR] 150 mg capsule,extended release 24hr 300 mg PO DAILY pregabalin [Lyrica] 150 mg capsule 150 mg PO DAILY risperidone [Risperdal] 0.5 mg tablet 0.5 mg PO DAILY omeprazole magnesium 20 mg tablet,delayed release (DR/EC) 20 mg PO DAILY Qty: 90 3RF carbamazepine 200 mg capsule, ER multiphase 12 hr 400 mg PO BID hydrochlorothiazide 12.5 mg tablet 12.5 mg PO DAILY AM Qty: 90 3RF levothyroxine 100 mcg tablet 100 mcg PO DAILY Qty: 90 3RF Rx Instructions: Administer in the morning on an empty stomach, at least 30-60 minutes before food Discontinued ibuprofen 800 mg tablet 800 mg PO TID PRN (Reason: pain) Qty: 120 3RF acetaminophen 500 mg tablet 1,000 mg PO TID Qty: 90 0RF Discharge Instructions Stand Alone Forms: [facility] Knee Arthroscopy Equipment/Supplies: Partial Weight Bearing Crutches Activity:: Elevate Remove Dressings/Wound Care:: 72 hours Shower/Bathe:: 72 hours Diet:: As Tolerated Discharge Orders Discharge Orders: Discharge Order (Routine); Ordered 04/03/22 Ordered By: Annetta Yusuf
--- NOTE | 2022-04-03 09:48 | W.ANESPRE ---
General Info Date of Service Date Performed: 04/03/22 Height: 5 ft 4 in Weight: 119.295 kg Body Mass Index (BMI): 45.1 Surgical Procedure: Operation Date: 04/03/22 12:55 Proposed Procedure Side Surgeon p Knee Arthroscopy, Medial Menisectomy Right Steven Abreu MD Meds Allergies and Home Medications Allergies Allergy/AdvReac Type Severity Reaction Status Date / Time gabapentin AdvReac Mild makes her Verified 04/03/22 09:37 feel drunk sumatriptan [From Imitrex] AdvReac Verified 04/03/22 09:37 Home Medication Medication Instructions Recorded venlafaxine 150 mg 300 mg PO DAILY 04/15/19 capsule,extended release 24 hr (Effexor XR) carbamazepine 200 mg 400 mg PO BID 02/25/20 capsule,extended release [id number] acetaminophen 500 mg tablet 1,000 mg PO TID #90 tabs 10/18/21 omeprazole magnesium 20 mg 20 mg PO DAILY #90 tabs 01/19/22 tablet,delayed release pregabalin 150 mg capsule (Lyrica) 150 mg PO DAILY 01/19/22 risperidone 0.5 mg tablet 0.5 mg PO DAILY 01/19/22 (Risperdal) ibuprofen 800 mg tablet 800 mg PO TID PRN pain #120 tabs 02/02/22 hydrochlorothiazide 12.5 mg tablet 12.5 mg PO DAILY AM #90 tab-caps 02/21/22 levothyroxine 100 mcg tablet 100 mcg PO DAILY #90 tab-caps 03/23/22 Current Visit Medications: Current Medications Generic Name Dose Route Start Last Admin Trade Name Freq PRN Reason Stop Dose Admin Acetaminophen 650 mg 04/03/22 07:56 Acetaminophen 325 Mg Tab PO Q4H PRN PRN Hydrocodone Bitart/Acetaminophen 0 tab 04/03/22 07:56 Hydrocodone 5/Acetaminophen 325 Tab PO Q3H PRN PRN Pain Ringer's Solution 1,000 mls @ 80 mls/hr 04/03/22 06:00 IV 04/03/22 23:59 INFUSION [facility] Cefazolin Sodium 3,000 mg/ 100 mls @ 200 mls/hr 04/03/22 06:00 Sodium Chloride IVPB 04/03/22 18:00 PREOP [place] IV Miscellaneous Supplies 1 each 04/03/22 06:00 Iv Access IV 04/03/22 23:59 DIRECTED [place] Sodium Chloride 0 ml 04/03/22 06:00 Normal Saline Flush 10 Ml Syr IV 04/03/22 23:59 PRN PRN Sodium Chloride 0 ml 04/03/22 06:00 Normal Saline 10 Ml Vial IJ 04/03/22 23:59 DIRECTED PRN Sterile Water 0 ml 04/03/22 06:00 Water,Injection,Sterile 10 Ml Vial IJ 04/03/22 23:59 DIRECTED PRN PFSH Active Problems Active Problems: Problem Status Onset Code Bipolar disorder, unspecified F31.9 Hypertension I10 Hypothyroidism E03.9 Obesity E66.9 Hyperlipidemia, unspecified E78.5 Gastroesophageal reflux disease K21.9 Constipation K59.00 Acute medial meniscus tear of left knee S83.242A Patellar tendonitis of left knee M76.52 Bilateral knee pain M25.561, M25.562 Internal derangement of right knee M23.91 Complex tear of medial meniscus of right knee S83.231A Medical History Medical History Back pain Bursitis of right shoulder Calcific tendinitis of right shoulder Cervicalgia Chronic pain Cryptogenic sensory polyneuropathy Legs Cystitis Heel spur Impingement syndrome of left shoulder Impingement syndrome of right shoulder Insomnia Left knee pain Pain, joint, hip, left Plantar fasciitis Polycystic ovarian disease Scapulothoracic bursitis of both shoulders Sleep apnea Pt reports she had a negative sleep study --> ruled-out Social phobia, unspecified Moderate, NKHS Spondylosis without myelopathy or radiculopathy, cervical region Tendinitis of long head of biceps brachii of left shoulder Tendonitis of long head of biceps brachii of right shoulder Urinary incontinence Vitamin D deficiency, unspecified Surgical History Surgical History H/O arthroscopy of knee 2000 H/O exploratory laparotomy 1988 History of bariatric surgery S/P cholecystectomy 2000 S/P endoscopy 2012 S/P gastric bypass Laparoscopic sleeve S/P removal of ovarian cyst S/P tubal ligation 1992 Status post medial meniscus repair of left knee 10/2021 Tobacco Smoking/Tobacco Use Status: Former Tobacco Use Passive smoking exposure: Yes Second hand exposure: Yes Alcohol Alcohol Intake: former Substance Use Substance use: Never Substance use type: does not use Prental History History 3 Para 2 Hx # Term Pregnancies Multiple births Hx # Pregnancies Ectopic pregnancies AB induced Hx Number of Living Children AB spontaneous Vital Signs and Lab Results Lab Results Blood Type / Crossmatch: No Data to Display Complete Blood Count: No Data to Display Complete Metabolic Panel: No Data to Display Liver Function Panel: No Data to Display Coagulation Panel: No Data to Display Cardiac Panel: No Data to Display Arterial Blood Gas: No Data to Display Venous Blood Gas: No Data to Display Pancreas Panel: No Data to Display Thyroid Panel: No Data to Display Infectious Disease: No Data to Display Blood Cultures: No Data to Display Toxicology Panel: No Data to Display Panel: No Data to Display Anesthesia Assessment and Plan Anesthesia History Personal History: No History of Anesthesia Complications Family History: No Family History of Anesthesia Complications Exercise Tolerance Exercise Tolerance: Metabolic Equivalents>4 Cardiac & Pulmonary Exam Cardiac Exam: Normal S1/S2 Heart Sounds Pulmonary Exam: Clear Bilateral Breath Sounds Implantable Cardiac Device Does patient have a Pacemaker or an ICD?: No Airway Exam Known Difficult Airway: No Mallampati Class: 4 Mouth Opening: Narrow (< 3cm) Thyromental Distance: Greater than 3 cm Neck Range of Motion: Full ROM Neck Circumference: Normal Teeth Condition: Edentulous ASA Classification ASA Score: ASA 3 Emergency Case?: No NPO Status NPO Status: NPO Clears >2 hours, Solids >8 hours Status Status: Not Per Patient Anesthesia Plan Resuscitation Status: Full Code Anesthesia Technique: General Anesthesia Airway Planned: Endotracheal Tube Monitors Used: Standard Monitors Preoperative Comments:: 50 yo female for knee scope. Sig PMHx: BMI 45, GERD (does not have this anymore, sleeps HOB flat), bipolar, cryptogenic sensory polyneuropathy, HTN (HCTZ), hypothyroidism (on replacement), former smoker. Denies major health history change since last time shw as with us. Previous Anes: pablo 2 grade 1, masked with OPA (intubated likely due to BMI), did recieve labetalol for BPs Plan:
[2022-04-03] MEDS: Lactated Ringers 1,000 ML 80 ML IV (10:15)
--- NOTE | 2022-04-03 11:11 | HPE_ITS ---
Assessment and Plan Assessment and plan (1) Complex tear of medial meniscus of right knee: Status: Acute Assessment and plan: Erin is a 51-year-old who has a known meniscal tear about the right knee. She has failed nonoperative options. She is here today for right knee arthroscopy with partial medial meniscectomy. I reviewed the surgery with her. I discussed the risk to include bleeding, infection, pain, stiffness, damage nerves and vessels, damage to muscle and tendons, worsening arthritis, osteonecrosis, blood clot, need for repeat procedures. Despite these risk, she elects to proceed. History of Present Illness History of Present Illness Chief Complaint: Right knee medial meniscus tear Narrative: Erin is a 51-year-old who presents today for her right knee. She has previously been diagnosed with a medial meniscal tear. She has failed nonoperative treatments including activity modification, physical therapy, anti- inflammatories. She had similar pathology in the left knee which is status post partial medial meniscectomy and doing well. She has had no significant changes to her health. She is had no sick contacts. She has had no recent sickness or upper respiratory infection. Review of Systems All systems reviewed & are unremarkable except as noted in HPI and below PFSH All Active Problems Bipolar disorder, unspecified (Acute) Hypertension (Chronic) Resolved s/p bariatric surgery & weight loss; re-started med 02/2020 Hypothyroidism (Chronic) Obesity (Chronic) Hyperlipidemia, unspecified (Acute) 09/2019 labs: 10-year ASCVD risk = ~0.7% Gastroesophageal reflux disease (Chronic) Constipation (Acute) Acute medial meniscus tear of left knee (Acute) surgically repaired Patellar tendonitis of left knee (Acute) Bilateral knee pain (Acute) Internal derangement of right knee (Acute) Complex tear of medial meniscus of right knee (Acute) Medical History Back pain Bursitis of right shoulder Calcific tendinitis of right shoulder Cervicalgia Chronic pain Cryptogenic sensory polyneuropathy Legs Cystitis Heel spur Impingement syndrome of left shoulder Impingement syndrome of right shoulder Insomnia Left knee pain Pain, joint, hip, left Plantar fasciitis Polycystic ovarian disease Scapulothoracic bursitis of both shoulders Sleep apnea Pt reports she had a negative sleep study --> ruled-out Social phobia, unspecified Moderate, NKHS Spondylosis without myelopathy or radiculopathy, cervical region Tendinitis of long head of biceps brachii of left shoulder Tendonitis of long head of biceps brachii of right shoulder Urinary incontinence Vitamin D deficiency, unspecified Surgical History H/O arthroscopy of knee 2000 H/O exploratory laparotomy 1987 History of bariatric surgery S/P cholecystectomy 2000 S/P endoscopy 2012 S/P gastric bypass Laparoscopic sleeve S/P removal of ovarian cyst S/P tubal ligation 1992 Status post medial meniscus repair of left knee 10/2021 Family History Mother Alcohol abuse Depression Diabetes Hypertension Father Alcohol abuse Cancer Heart disease Hypertension Sister Alcohol abuse Depression Hypertension Substance abuse Brother Alcohol abuse Substance abuse Brother No problems noted. Brother Depression Son No problems noted. Daughter Alcohol abuse Depression Substance abuse Social History Smoking/Tobacco Use Status: Former Tobacco Use tobacco type: cigarettes Quit Date: 04/08/12 Pack-years: 25 Tobacco: How many years used: 25 Second Hand Exposure: Yes Smoking risk assessment performed?: Yes Alcohol Intake: former Drug use: Never Substance use type: does not use Counseling given: No Adopted: Yes Caregiver/Support person: No Foster care: Yes Household members: family and other Details: Lives with son & boyfriend Housing: apartment Number of Children: 2 Communication Needs: Hard of Hearing Education Level: high school Details: GED & Associate's degree in business Do you need help understanding health information?: Rarely current occupation: Disabled Pets and animals: Yes Pets and animals: dog(s) Sexually active: Yes Do you think of yourself as: straight/heterosexual Current gender identity: female What is your relationship status?: How often do you talk on the phone with friends or family?: three or more times per week How often do you get together with friends or relatives?: three or more times per week How often do you attend sikh or mormonism services?: 1-3 times per year Do you belong to any clubs or organized social groups?: no Panel score (0-1 are the most socially isolated patients): 1 What type of physical activity do you participate in: regular exercise Duration: 45-60 minutes/day Frequency: daily Renea/Denominational: Church Special renea needs: No Seatbelt use: always Helmet use: Yes Helmet use: always Drive intox or ride w/intox furniture delivery driver: No Do you feel safe at home: Yes (partner in room) Do you feel safe in your relationship?: Yes Female Reproductive History Menstrual control method: permanent sterilization History History 3 Para 2 Hx # Term Pregnancies Multiple births Hx # Pregnancies Ectopic pregnancies AB induced Hx Number of Living Children AB spontaneous Meds Allergies and Home Medications Allergies Allergy/AdvReac Type Severity Reaction Status Date / Time gabapentin AdvReac Mild makes her Verified 04/03/22 09:37 feel drunk sumatriptan [From Imitrex] AdvReac Verified 04/03/22 09:37 Home Medications Medication Instructions Recorded Confirmed Type venlafaxine 150 mg 300 mg PO DAILY 04/15/19 04/03/22 History capsule,extended release 24 hr (Effexor XR) carbamazepine 200 mg 400 mg PO BID 02/25/20 04/03/22 History capsule,extended release [id number] acetaminophen 500 mg tablet 1,000 mg PO TID #90 tabs 10/18/21 04/03/22 Rx omeprazole magnesium 20 mg 20 mg PO DAILY #90 tabs 01/19/22 04/03/22 Rx tablet,delayed release pregabalin 150 mg capsule (Lyrica) 150 mg PO DAILY 01/19/22 04/03/22 History risperidone 0.5 mg tablet 0.5 mg PO DAILY 01/19/22 04/03/22 History (Risperdal) ibuprofen 800 mg tablet 800 mg PO TID PRN pain #120 tabs 02/02/22 04/03/22 Rx hydrochlorothiazide 12.5 mg tablet 12.5 mg PO DAILY AM #90 tab-caps 02/21/22 04/03/22 Rx levothyroxine 100 mcg tablet 100 mcg PO DAILY #90 tab-caps 03/23/22 04/03/22 Rx Exam Const General: cooperative, comfortable and no acute distress Resp Auscultation: clear to auscultation bilaterally Cardio Rate: regular rate Rhythm: regular rhythm Results Last Vital Signs Temp 36.4 C L 12/27/22 09:46 Pulse 73 04/03/22 09:46 Resp 20 04/03/22 09:46 BP 120/76 04/03/22 09:46 Pulse Ox 97 04/03/22 09:46
[2022-04-03] MEDS: ceFAZolin 3,000 MG in Normal Saline 100 ML 200 MG IVPB (11:19)
[2022-04-03] MEDS: EPINEPHrine 30 MG/30 ML VIAL (11:54)
[2022-04-03] MEDS: Bupivacaine 0.5% Pres-Free 30 ML VIAL (11:54)
[2022-04-03] MEDS: HYDROmorphone 2 MG/ML SYR IVP ×4 (12:20→12:59)
--- NOTE | 2022-04-03 12:26 | W.ANESPOSTOP ---
Postoperative Evaluation Date, Time and Location Date Performed: 04/03/22 Time Performed: 12:26 Patient Location: PACU Vital Signs Most Recent Imported Vital Signs: Most Recent Vital Signs Temp Pulse Resp BP Pulse Ox 36.5 C 64 18 124/73 97 04/03/22 12:23 04/03/22 12:23 04/03/22 12:23 04/03/22 12:23 04/03/22 12:23 Pain Score Most Recent Pain Score: Most Recent Pain Score Pain Level 9 04/03/22 12:23 Assessment Mental Status: Awake (Alert & Oriented to Patient Baseline) Airway and Respiratory Function: Patent airway with normal (patient baseline) respiratory exam Cardiovascular Function: Hemodynamically Stable Hydration Status: Adequately Hydrated Nausea & Vomiting: No Nausea or Vomiting Pain: Pain is Moderate or Severe Postoperative Pain Management: Pain being addressed with medication Peripheral Nerve Block: Patient did not receive a nerve block
[2022-04-03] MEDS: HYDROcodone 5/Acetaminophen 325 TAB PO (13:28)
--- NOTE | 2022-04-03 14:56 | ROE_ITS ---
Date of service: 04/03/22 Time of Service: 11:45 Operative Note Operative Note DATE OF PROCEDURE: 04/03/22 PRE-OP DIAGNOSIS: Right Knee Medial Meniscus Tear POST-OP DIAGNOSIS: same PROCEDURE: Right Knee Arthroscopic Partial Medial Menisectomy SURGEON: Steven Abreu ANESTHESIA TYPE: General LMA/ETT Refer to Anesthesia Record ESTIMATED BLOOD LOSS: 0 PATHOLOGY: none sent COMPLICATIONS: None Patient was transported to: PACU Patient's condition: stable Indications: I have seen Erin in clinic for symptoms of a meniscus tear. This was confi rmed based on MRI and exam findings. Nonoperative measures were exhausted but disability and pain persisted. I discussed knee arthroscopy with meniscal intervention with the patient. I reviewed the risks of the procedure to include, but not limited to, bleeding, infection, pain, stiffness, damage to nerves or vessels, recurrence, blood clot. Despite these risks, the patient elected to proceed. 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 The consent was reviewed with the patient and signed. The history and physical was updated. All questions were answered. She was taken back to the operating room. The patient was placed into the supine position on the operating room table. A nonsterile tourniquet was placed high onto the leg but not used. All bony prominences were well padded. Prophylactic antibiotics in the form of Cefazolin were administered. The right leg was then prepped with Chloraprep and draped in a standard fashion with stockinette and extremity drape. A timeout to confirm correct identity, side and site, procedure, allergies, anesthesia, and medical concerns was performed. The leg was placed into a pneumatic leg wallace, [id number]. A standard lateral portal was made at the lateral border of the patella tendon in line with the inferior pole of the patella, soft spot. The skin and deep tissue was incised sharply and the blunt trochar was inserted atraumatically. A diagnostic arthroscopy was performed and the findings are listed above. The suprapatellar pouch had no significant inflammatory change. The patellofemoral articulation showed only grade I chondromalacia over the ridge of the patella as well as good tracking. The lateral gutter had no loose bodies and the medial gutter had no loose bodies. The knee was brought into some valgus stress in extension to open the medial compartment. A medial portal was made, localized by a spinal needle. The portal was created with an #11 blade through skin and capsule under direct visualization avoiding any meniscal injury. A probe was then inserted into the medial compartment. The medial compartment was fully inspected. The chondral surface of the tibia showed grade II chondromalacia posteriorly and the surface of the femur showed the same posteriorly. The medial meniscus had a subacute tear of the posterior meniscus at the level of the root which disconnected the posterior medial meniscus from its attachment to the posterior root. Upon probing, there is also a radial component into the posterior body. After evaluation, the meniscus was debrided down to a stable base using a series of biters and arthroscopic nela. It was probed afterwards to confirm that the tear had been removed and the meniscus was stable. The notch was then inspected which showed an intact ACL and an intact PCL. The leg was then brought into a figure of 4 position. The lateral compartment was fully inspected with the arthroscope and a probe. The chondral surface of the lateral femur showed no significant chondromalacia. The chondral surface of the lateral tibia showed no significant chondromalacia. The lateral meniscus had no meniscal tear. The arthroscope was brought back into the suprapatellar pouch and the leg was in full extension. The knee was thoroughly irrigated with the arthroscopic fluid on high flow and pressure. Inflow was stopped and excess fluid was removed. The wounds were closed with 4-0 Nylon. They were dressed with Xeroform, 4x4 gauze, ABD pad, Kerlix and an EL wrap. A cryo-cuff was applied. The patient tolerated the procedure well and was returned to the Same Day Surgery area in a stable condition suffering no known complication.
== END 2022-04-03 14:37 | disposition home or self-care (01) ==
PROVIDERS: PCP Nurse Practitioner Family; Visit Provider Student in an Organized Health Care Education/Training Program
PROC: (CPT 29870; principal; 2022-04-03 12:45)
DX: S83.231A Complex tear of medial meniscus, current injury, right knee, initial encounter (principal); M94.261 Chondromalacia, right knee; X58.XXXA Exposure to other specified factors, initial encounter; E66.9 Obesity, unspecified; Z68.42 Body mass index [BMI] 45.0-49.9, adult; I10 Essential (primary) hypertension
CPT/HCPCS: 29881; J0131; J0690; J1100; J1170; J1885; J2405; J2704

== ENCOUNTER → 2022-04-16 10:45 | Outpatient (BNVA) | payer MEDICARE, MEDICAID, SELFPAY | PROVIDERS: PCP Nurse Practitioner Family; Referring Provider Nurse Practitioner Family; Visit Provider Student in an Organized Health Care Education/Training Program | DX: S83.231D Complex tear of medial meniscus, current injury, right knee, subsequent encounter; X58.XXXD Exposure to other specified factors, subsequent encounter ==

== ENCOUNTER 2022-05-14 01:04 | Outpatient (CLI) | payer MEDICARE, MEDICAID, SELFPAY ==
--- NOTE | 2022-05-14 07:00 | DI.MAMMO_ITS ---
Exam(s) MAMMO SCREENING EXAM: MAMMO SCREENING CLINICAL HISTORY: screening,Z12.39 TECHNIQUE: Bilateral full field digital CC and MLO mammographic images were obtained with 3D tomosyn thesis and utilizing computer aided detection (CAD). COMPARISON: Available for comparison. FINDINGS: Masses/Architectural Distortion: There is an asymmetric density in the outer right breast seen on the craniocaudad view. It is approximately 14 cm from the nipple. Microcalcifications: No suspicious pleomorphic-type are seen. Skin Thickening/Nipple Retraction: None. IMPRESSION: 1. Asymmetric density in the outer right breast 14 cm from the nipple. 2. This area should be further evaluated with a spot compression view. Limited right breast ultrasou nd is requested for further evaluation. BI-RADS Category 0 - Assessment Incomplete: Need additional imaging evaluation Breast Density - Category B - Scattered areas of fibroglandular density Breast density category C or D implies that the patient has dense breast tissue. Dense breast tissue is very common and is not abnormal but dense breast tissue can make it harder to find cancer on a ma mmogram. Also, dense breast tissue may increase their breast cancer risk. This information about the result of the mammogram report was provided to the patient to raise their awareness. Use this report when you speak with the patient about their risks for breast cancer, which includes their family hist ory. At that time, you may recommend for more screening tests (Ultrasound or MRI) as they might be us eful based on their risk. A negative radiographic report should not delay biopsy if a dominant or clinically suspicious mass is present. Up to ten percent of cancers are not identified on mammography. A negative report may reinforce clinical impression. Adenosis and dense breasts may obscure an underlying neoplasm. False positive reports average 6 to 10%. Patient will receive a letter notifying them of these results.
== END 2022-05-14 01:24 ==
LOC: DI 01:04
PROVIDERS: PCP Nurse Practitioner Family; Visit Provider Nurse Practitioner Family
DX: Z12.31 Encounter for screening mammogram for malignant neoplasm of breast (principal); R92.8 Other abnormal and inconclusive findings on diagnostic imaging of breast
CPT/HCPCS: 77063; 77067

== ENCOUNTER 2022-05-17 00:50 | Outpatient (CLI) | payer MEDICARE, MEDICAID, SELFPAY ==
--- NOTE | 2022-05-17 | DI.US_ITS ---
Exam(s) MG MAMMO SCREEN CALL BACK UNI US BREAST RT COMPLETE EXAM: MG MAMMO SCREEN CALL BACK UNI-LEFT AND COMPLETE LEFT BREAST ULTRASOUND CLINICAL HISTORY: F/U MAMMO, R92.8, ASYMMETRIC DENSITY. TECHNIQUE: Unilateral spot mammographic images obtained with 3D tomosynthesisand utilizing computer aided detection (CAD). . Complete LEFT breast Ultrasound was also performed, including all 4 quadrants, the retroareolar regio n, and the ipsilateral axilla. COMPARISON: Prior mammograms were reviewed. This additional imaging was performed due to findings described on the recent screening mammogram of 05/14/2022. FINDINGS: DIAGNOSTIC MAMMOGRAM: Additional mammographic views performed todaydo not completely dissipate the nodule but exhibits a sm all notch in this nodule indicating that it is most probably benign intramammary lymph node. COMPLETE LEFT BREAST ULTRASOUND: Ultrasound performed today reveals a benign 3 millimeter intramammary lipoma at 7 o'clock position. This is not clinically significant.. There is also a small 3 millimeter benign microcyst at the 10 o 'clock position, approximately 6 cm in from the nipple. This has similar appearance to the nodule on the mammogram but is not as far peripherally located. There are no other focal ultrasound findings in all 4 quadrants of the right breast. This indicates that the nodule seen on the mammogram is most probably a benign intramammary lymph node. Scanning of the ipsilateral axilla reveals no significant adenopathy. IMPRESSION: 1. Benign-appearing findings as described above. I feel that the nodule on the mammogram is most pr obably benign intramammary lymph node. Although there is a similar appearing benign micro cyst at 10 o'clock position on the ultrasound, this is only 6 cm in from the nipple on the ultrasound, whereas the mammographically visible nodule significantly further back. Nevertheless, we are dealing with mo st probable benign findings here. Appropriate follow-up is repeat left breast imaging in 6 months to include repeat left breast mammog nat and ultrasound.. The patient was informed of these findings and recommendations prior to leaving the department today. BI-RADS Category 3 - 6 month - Probably Benign Finding: Recommend follow-up mammography in 6 months Breast Density - Category B - Scattered areas of fibroglandular density Breast density Category C or D implies that the patient has dense breast tissue. Dense breast tissue can make it harder to find cancer on a mammogram. Dense breast tissue is also associated with an incr eased risk of breast cancer. This information about the result of the mammogram report was provided to the patient to raise their awareness. Use this report when you speak with the patient about their risks for breast cancer, which includes their family history. At that time, you may recommend additional screening tests (Ultrasoun d or MRI) as these tests may add significant information. A negative radiographic report should not delay biopsy if a dominant or clinically suspicious mass is present. Up to ten percent of cancers are not identified on mammography. A negative report may reinforce clinical impression. Adenosis and dense breasts may obscure an underlying neoplasm. False positive reports average 6 to 10%. Patient will receive a letter notifying them of these results.
== END 2022-05-17 01:10 ==
LOC: DI 00:50
PROVIDERS: PCP Nurse Practitioner Family; Visit Provider Nurse Practitioner Family
DX: Z12.31 Encounter for screening mammogram for malignant neoplasm of breast (principal); R92.8 Other abnormal and inconclusive findings on diagnostic imaging of breast
CPT/HCPCS: 76642; 77063; 77067

== ENCOUNTER → 2022-05-28 09:22 | Outpatient (BNVA) | payer MEDICARE, MEDICAID, SELFPAY | PROVIDERS: PCP Nurse Practitioner Family; Referring Provider Nurse Practitioner Family; Visit Provider Student in an Organized Health Care Education/Training Program | DX: M25.562 Pain in left knee (principal); Z98.890 Other specified postprocedural states | CPT/HCPCS: 20610; J1040 ==

== ENCOUNTER 2022-12-03 12:56 | Outpatient (CLI) | payer OTHER, MEDICAID, SELFPAY ==
--- NOTE | 2022-12-03 10:45 | DI.RAD_ITS ---
Exam(s) XR KNEE RT 3V AP,LAT,DIANE EXAM: XR KNEE RT 3V AP,LAT,DIANE CLINICAL HISTORY: BILATERAL KNEE PAIN. TECHNIQUE: 2D digital imaging was performed of the right knee. Three views obtained. AP, lateral an d PA tunnel views were obtained. COMPARISON: CR XR KNEE RT 3V AP,LAT,DIANE from 02/23/2022 FINDINGS: BONES: No acute fracture is present. No bony destructive lesion is seen. JOINTS: There is mild narrowing and periarticular spurring in the medial femoral tibial joint. The j oint spaces are otherwise well maintained. No joint effusion is seen. SOFT TISSUE: Soft tissue calcifications are again seen anteriorly. IMPRESSION: Mild degenerative changes of the right knee. DATA REPOSITORY: RADIATION DOSE DELIVERED:
--- NOTE | 2022-12-03 10:45 | DI.RAD_ITS ---
Exam(s) XR KNEE LT 3V AP,LAT,DIANE EXAM: XR KNEE LT 3V AP,LAT,DIANE CLINICAL HISTORY: BILATERAL KNEE PAIN. TECHNIQUE: 2D digital imaging was performed of the left knee. Three images were obtained. Merchant ,AP, lateral and PA tunnel views were obtained. COMPARISON: CR XR KNEE LT 4V AP,LAT,DIANE,PAT from 06/19/2021 FINDINGS: BONES: No acute fracture is present. No bony destructive lesion is seen. JOINTS: There is moderate narrowing of the medial femoral tibial joint. There is a small joint effus ion. No loose body. SOFT TISSUE: Normal. IMPRESSION: Moderate joint space narrowing of the medial femoral tibial joint. DATA REPOSITORY: RADIATION DOSE DELIVERED:
== END 2022-12-03 12:57 | disposition home or self-care (01) ==
LOC: DIORS 12:56
PROVIDERS: PCP Nurse Practitioner Family; Referring Provider Nurse Practitioner Family; Visit Provider Student in an Organized Health Care Education/Training Program
DX: M23.91 Unspecified internal derangement of right knee; S83.231A Complex tear of medial meniscus, current injury, right knee, initial encounter; S83.242A Other tear of medial meniscus, current injury, left knee, initial encounter; X58.XXXA Exposure to other specified factors, initial encounter
CPT/HCPCS: 73562; 99213

== ENCOUNTER 2022-12-20 02:16 | Outpatient (CLI) | payer OTHER, MEDICAID, SELFPAY ==
[2022-12-20 10:53] LABS: CREATININE 0.8 mg/dL (0.55-1.02); Calculated LDL 140 mg/dL (<100); Cholesterol 251 mg/dL (<200); HDL Cholesterol 93 mg/dL (40-60); Potassium 3.8 mmol/L (3.5-5.1); TSH (W/Ref FT4) 0.74 uIU/mL (0.36-3.74); Triglyceride 91 mg/dL (<150)
== END 2022-12-20 02:17 | disposition home or self-care (01) ==
LOC: LBO 02:16
PROVIDERS: PCP Nurse Practitioner Family; Visit Provider Nurse Practitioner Family
DX: I10 Essential (primary) hypertension (principal); E78.5 Hyperlipidemia, unspecified; E03.9 Hypothyroidism, unspecified
CPT/HCPCS: 36415; 80061; 82565; 84132; 84443

== ENCOUNTER → 2022-12-27 13:08 | Outpatient (BNVA) | payer OTHER, MEDICAID, SELFPAY | PROVIDERS: PCP Nurse Practitioner Family; Referring Provider Nurse Practitioner Family; Visit Provider Surgery | DX: Z12.11 Encounter for screening for malignant neoplasm of colon (principal); K59.09 Other constipation; K21.9 Gastro-esophageal reflux disease without esophagitis | CPT/HCPCS: 99243 ==

== ENCOUNTER → 2022-12-28 00:53 | Outpatient (CLI) | payer OTHER, MEDICAID, SELFPAY ==
--- NOTE | 2022-12-28 08:15 | DI.MRI_ITS ---
Exam(s) MR LOWER JOINT RT WO EXAM: MR LOWER JOINT RT WO CLINICAL HISTORY: PAIN,COMPLEX TEAR MEDIAL MENISCUS RT KNEE,S83.231A. TECHNIQUE: Multiplanar multisequence MRI was performed. COMPARISON: MR MR LOWER JOINT RT WO from 03/19/2022 CR XR KNEE RT 3V AP,LAT,DIANE from 12/03/2022 MR MR LOWER JOINT LT WO from 12/28/2022 FINDINGS: BONES: There is no fracture or contusion pattern. Mild spurring at the medial femoral condyle medial tibial plateau. JOINTS: A moderate-sized joint effusion is present. Small amount of fluid at the proximal tibial fi bular joint. Articular cartilage: Patellofemoral joint: Tiny focal defect at apex which does not extend down to bone. Other small louis ear areas of high signal seen in the medial patellar facet. Medial femoral tibial joint: Diffuse thinning. No focal defect. Lateral femoral tibial joint: Articular cartilage is unremarkable. TENDONS: Extensor mechanism: Unremarkable. Medial retinaculum: Unremarkable. Lateral retinaculum: Unremarkable. Popliteus: Unremarkable. MUSCLES: Unremarkable. MENISCI: The medial meniscus is peripherally displaced this and shows intrasubstance signal consisten t with degenerative changes. There is blunting of the posterior horn of the medial meniscus with lar ge area of tear posteriorly near the root.. The lateral meniscus is unremarkable. SOFT TISSUES: Unremarkable. LIGAMENTS: Anterior Cruciate: Unremarkable. Posterior Cruciate: Unremarkable. Medial Collateral:Some surrounding fluid but no focal tear. Lateral Collateral: Unremarkable. OTHER: IMPRESSION: Underlying degenerative changes of the medial femoral tibial joint and medial meniscus with superimpo sed tear at the posterior horn of the medial meniscus near the root. Mild chondromalacia of the patella. DATA REPOSITORY:
--- NOTE | 2022-12-28 08:15 | DI.MRI_ITS ---
Exam(s) MR LOWER JOINT LT WO EXAM: MR LOWER JOINT LT WO CLINICAL HISTORY: PAIN,ACUTE MEDIAL MENISCUS TEAR,PATELLAR TENDONITIS,M76.52. TECHNIQUE: Multiplanar multisequence MRI was performed. COMPARISON: CR XR KNEE LT 3V AP,LAT,DIANE from 12/03/2022 MR MR LOWER JOINT RT WO from 12/28/2022 FINDINGS: BONES: There is no fracture or contusion pattern. Mild edema in the medial aspect of medial tibial plateau and medial femoral condyle. Periarticular spurring in this region. Some tiny subchondral cy sts. JOINTS: A small joint effusion is present. Articular cartilage: Patellofemoral joint: Focal cartilage defect at the patellar apex. Medial femoral tibial joint: Irregular cartilage thinning over the medial femoral condyle and medial tibial plateau. Lateral femoral tibial joint: Articular cartilage is unremarkable. TENDONS: Extensor mechanism: Unremarkable. Medial retinaculum: Unremarkable. Lateral retinaculum: Unremarkable. Popliteus: Unremarkable. MUSCLES: Unremarkable. MENISCI: The medial meniscus is peripherally displaced and shows some increased intrasubstance signal consistent with degenerative changes. There is a tear at the root of the medial meniscus.. The lat eral meniscus is unremarkable. SOFT TISSUES: Tiny Whitmore cyst. LIGAMENTS: Anterior Cruciate: Unremarkable. Posterior Cruciate: Unremarkable. Medial Collateral:Adjacent edema but no visible tear. Lateral Collateral: Unremarkable. OTHER: IMPRESSION: Degenerative changes of the medial femoral condyle tibial joint. Degenerative changes of the medial m eniscus with tear at the posterior root. Focal defect in the cartilage of the patellar apex. DATA REPOSITORY:
== END ==
PROVIDERS: PCP Nurse Practitioner Family; Visit Provider Student in an Organized Health Care Education/Training Program
DX: M76.52 Patellar tendinitis, left knee (principal); S83.242A Other tear of medial meniscus, current injury, left knee, initial encounter; S83.231A Complex tear of medial meniscus, current injury, right knee, initial encounter; X58.XXXA Exposure to other specified factors, initial encounter
CPT/HCPCS: 73721

== ENCOUNTER 2022-12-31 09:07 | Outpatient (REF) | payer OTHER, MEDICAID, SELFPAY ==
--- NOTE | 2022-12-31 08:45 | PAPFT_PTH ---
PATIENT: Erin Whitmore LOC: [facility] U#:[id number] AGE/SX: 52/F ROOM: RE12/31/[address]: Vasu Brian NP : 1970 BED: DIS: 12/31/2022 SPEC #: [id number] RECD: 12/31/22 17:55 STATUS: EMIL REAndi #: [id number] MILANA: 12/31/22 08:[address]: Vasu Brian DEPT: [facility] Cytology RECD BY: Martha Stern Tissues: 1 - CX/ENDOCX FOR PAP SMEARS Procedures: PAP THIN PREP/UVM Screening HPV DNA PROBE Comments: [id number]
== END 2022-12-31 09:08 | disposition home or self-care (01) ==
LOC: LBN 09:07
PROVIDERS: PCP Nurse Practitioner Family; Visit Provider Nurse Practitioner Family
DX: Z12.4 Encounter for screening for malignant neoplasm of cervix (principal); Z11.51 Encounter for screening for human papillomavirus (HPV); Z01.419 Encounter for gynecological examination (general) (routine) without abnormal findings
CPT/HCPCS: 88142; 87624

== ENCOUNTER → 2023-01-07 13:21 | Outpatient (BNVA) | payer OTHER, MEDICAID, SELFPAY | PROVIDERS: PCP Nurse Practitioner Family; Referring Provider Nurse Practitioner Family; Visit Provider Student in an Organized Health Care Education/Training Program | DX: M23.91 Unspecified internal derangement of right knee (principal); S83.231A Complex tear of medial meniscus, current injury, right knee, initial encounter; S83.242A Other tear of medial meniscus, current injury, left knee, initial encounter; X58.XXXA Exposure to other specified factors, initial encounter | CPT/HCPCS: 99213 ==

== ENCOUNTER → 2023-01-08 00:36 | Outpatient (CLI) | payer OTHER, MEDICAID, SELFPAY ==
--- NOTE | 2023-01-08 | DI.MAMMO_ITS ---
Exam(s) MG MAMMO DIAGNOSTIC UNI EXAM: MG MAMMO DIAGNOSTIC UNI CLINICAL HISTORY: 3-6 mo f/u, f/u to abnl mammo, R92.8. COMPARISON: MA Mammo Bilat Screen w CAD Digital from 09/13/2017 MG MA Breast Scrn Roland Bilat from 09/25/2018 MG MG MAMMO SCREENING from 12/02/2019 MG MG MAMMO SCREENING from 05/14/2022 MG MG MAMMO SCREEN CALL BACK UNI from 05/17/2022 TECHNIQUE: Craniocaudal and mediolateral oblique Full Field Digital Mammography views of both breas ts with Computer Aided Diagnosis followed by Tomosynthesis. FINDINGS: Mammography/Tomosynthesis: This is a six-month follow-up of the right breast for small a area of nodularity laterally. The left breast was also inadvertently performed. Masses/Architectural Distortion: Stable size and appearance of small of ovoid density in the upper ou ter quadrant of right breast. No suspicious features. Likely intramammary lymph node. No new ozzie s in either breast. Microcalcifications: No suspicious pleomorphic-type are seen. Skin Thickening/Nipple Retraction: None. IMPRESSION: 1. No evidence of malignancy is noted. 2. Unless there is more urgent need, follow-up screening mammography is recommended in 1 year. BI-RADS Category 2 - Benign Findings Breast Density - Category B - Scattered areas of fibroglandular density A negative radiographic report should not delay biopsy if a dominant or clinically suspicious mass is present. Up to ten percent of cancers are not identified on mammography. A negative report may reinforce clinical impression. Adenosis and dense breasts may obscure an underlying neoplasm. False positive reports average 6 to 10%. Patient will receive a letter notifying them of these results.
== END ==
PROVIDERS: PCP Nurse Practitioner Family; Visit Provider Nurse Practitioner Family
DX: R92.8 Other abnormal and inconclusive findings on diagnostic imaging of breast; R92.321 Mammographic fibroglandular density, right breast
CPT/HCPCS: 77061; 77065; G0279

== ENCOUNTER 2023-01-23 09:19 | Outpatient (CLI) | payer OTHER, MEDICAID, SELFPAY ==
--- NOTE | 2023-01-23 08:45 | DI.RAD_ITS ---
Exam(s) XR STANDING ALIGNMENT EXAM: XR STANDING ALIGNMENT CLINICAL HISTORY: right knee f/u. TECHNIQUE: 2D digital imaging was performed. Four images were obtained. COMPARISON: CR XR KNEE LT 3V AP,LAT,DIANE from 12/03/2022 CR XR KNEE RT 3V AP,LAT,DIANE from 12/03/2022 FINDINGS: BONES: The hips are well maintained. Mild narrowing and spurring is seen in the medial femoral tibia l joint of the right knee. There is mild joint space narrowing in the medial femoral tibial left kne e. The ankles are well maintained.There is no significant leg length discrepancy. SOFT TISSUE: Normal. IMPRESSION: Mild degenerative changes of the knees, right greater than left. DATA REPOSITORY: RADIATION DOSE DELIVERED:
== END 2023-01-23 09:20 | disposition home or self-care (01) ==
LOC: DIORS 09:20
PROVIDERS: PCP Nurse Practitioner Family; Referring Provider Nurse Practitioner Family; Visit Provider Student in an Organized Health Care Education/Training Program
DX: S83.231A Complex tear of medial meniscus, current injury, right knee, initial encounter (principal); S83.242A Other tear of medial meniscus, current injury, left knee, initial encounter; X58.XXXA Exposure to other specified factors, initial encounter
CPT/HCPCS: 99214; 77073

== ENCOUNTER 2023-02-22 05:38 | Day surgery (SDC) | payer OTHER, MEDICAID, SELFPAY ==
[2023-02-22] VITALS (15 sets, daily range): BP systolic 92–153; BP diastolic 51–90; PULSE 70–91; RESP 12–18; TEMP 36.4–37.2; O2SAT 93–100; BMI 41.0
--- NOTE | 2023-02-22 06:13 | W.ANESPRE ---
General Info Date of Service Date Performed: 02/22/23 Height: 5 ft 4 in Weight: 108.409 kg Body Mass Index (BMI): 41.0 Surgical Procedure: Operation Date: 02/22/23 08:00 Proposed Procedure Side Surgeon p Medial Unicondylar Knee Arthroplasty Left Saw Barriga MD Meds Allergies and Home Medications Allergies Allergy/AdvReac Type Severity Reaction Status Date / Time gabapentin AdvReac Mild makes her Verified 02/22/23 06:16 feel drunk sumatriptan [From Imitrex] AdvReac Verified 02/22/23 06:16 Home Medication Medication Instructions Recorded venlafaxine 150 mg 300 mg PO DAILY 04/15/19 capsule,extended release 24 hr (Effexor XR) carbamazepine 200 mg 400 mg PO BID 02/25/20 capsule,extended release [id number] risperidone 0.5 mg tablet 0.5 mg PO DAILY 01/19/22 (Risperdal) acetaminophen 500 mg tablet 500 mg PO Q6H PRN pain #60 tabs 04/03/22 ibuprofen 600 mg tablet 600 mg PO TID PRN pain #60 tabs 04/03/22 omeprazole magnesium 20 mg 20 mg PO DAILY #90 tabs 12/26/22 tablet,delayed release golo PO TID 12/27/22 polyethylene glycol 3350 17 238 g PO ONCE colonoscopy prep 12/27/22 gram/dose oral powder #238 grams linaclotide 145 mcg capsule 145 mcg PO DAILY #30 caps 01/01/23 (Linzess) hydrochlorothiazide 12.5 mg tablet 12.5 mg PO DAILY AM #90 tab-caps 01/23/23 levothyroxine 100 mcg tablet 100 mcg PO DAILY #90 tab-caps 02/18/23 Current Visit Medications: Current Medications Generic Name Dose Route Start Last Admin Trade Name Freq PRN Reason Stop Dose Admin Acetaminophen 1,000 mg 02/22/23 06:00 Acetaminophen 500 Mg Tab PO 03/24/23 05:59 PREOP [place] Celecoxib 400 mg 02/22/23 06:00 Celecoxib 200 Mg Cap PO 03/24/23 05:59 PREOP [place] Ringer's Solution 1,000 mls @ 30 mls/hr 02/22/23 06:00 IV 03/23/23 23:59 INFUSION [place] Tranexamic Acid 1,000 mg/ 60 mls @ 360 mls/hr 02/22/23 06:00 Sodium Chloride IVPB 02/22/23 23:59 .PRIOR TO INCISION [place] Cefazolin Sodium 3,000 mg/ 100 mls @ 200 mls/hr 02/22/23 06:00 Sodium Chloride IVPB 02/22/23 23:59 PREOP [place] IV Miscellaneous Supplies 1 each 02/22/23 06:00 Iv Access IV 03/23/23 23:59 DIRECTED [place] Sodium Chloride 0 ml 02/22/23 06:00 Normal Saline Flush 10 Ml Syr IV 03/23/23 23:59 PRN PRN Sodium Chloride 0 ml 02/22/23 06:00 Normal Saline 10 Ml Vial IJ 03/23/23 23:59 DIRECTED PRN Sterile Water 0 ml 02/22/23 06:00 Water,Injection,Sterile 10 Ml Vial IJ 03/23/23 23:59 DIRECTED PRN PFSH Active Problems Active Problems: Problem Status Onset Code Chronic constipation K59.09 Bipolar disorder, unspecified F31.9 Hypertension I10 Hypothyroidism E03.9 Obesity E66.9 Hyperlipidemia, unspecified E78.5 Gastroesophageal reflux disease K21.9 Constipation K59.00 Acute medial meniscus tear of left knee S83.242A Patellar tendonitis of left knee M76.52 Bilateral knee pain M25.561, M25.562 Internal derangement of right knee M23.91 Complex tear of medial meniscus of right knee S83.231A Medical History Medical History COVID-19 Onset 06/27/22 Left knee pain Cystitis Scapulothoracic bursitis of both shoulders Tendinitis of long head of biceps brachii of left shoulder Impingement syndrome of left shoulder Social phobia, unspecified Moderate, NKHS Heel spur Chronic pain Impingement syndrome of right shoulder Bursitis of right shoulder Tendonitis of long head of biceps brachii of right shoulder Calcific tendinitis of right shoulder Pain, joint, hip, left Back pain Cryptogenic sensory polyneuropathy Legs Urinary incontinence Insomnia Plantar fasciitis Vitamin D deficiency, unspecified Sleep apnea Pt reports she had a negative sleep study --> ruled-out Polycystic ovarian disease Spondylosis without myelopathy or radiculopathy, cervical region Cervicalgia Surgical History Surgical History (Updated 02/22/23 @ 06:18 by Kathryn Foster) H/O arthroscopic knee surgery right Status post medial meniscus repair of left knee 10/2021 History of bariatric surgery S/P removal of ovarian cyst H/O exploratory laparotomy 1987 S/P tubal ligation 1992 S/P cholecystectomy 2000 S/P endoscopy 2012 H/O arthroscopy of knee 2000 S/P gastric bypass Laparoscopic sleeve Tobacco Smoking/Tobacco Use Status: Former Tobacco Use Passive smoking exposure: Yes Second hand exposure: Yes Alcohol Alcohol Intake: current Alcohol intake frequency: holidays/special occasions only Substance Use Substance use: Never Substance use type: does not use Prental History History 3 Para 2 Hx # Term Pregnancies Multiple births Hx # Pregnancies Ectopic pregnancies AB induced Hx Number of Living Children AB spontaneous Vital Signs and Lab Results Vital Signs Most Recent Vital Signs in EMR: Temp Pulse Resp BP Pulse Ox 36.6 C 70 18 130/63 96 02/22/23 06:25 02/22/23 06:25 02/22/23 06:25 02/22/23 06:25 02/22/23 06:25 Lab Results Blood Type / Crossmatch: No Data to Display Complete Blood Count: No Data to Display Complete Metabolic Panel: No Data to Display Liver Function Panel: No Data to Display Coagulation Panel: No Data to Display Cardiac Panel: No Data to Display Arterial Blood Gas: No Data to Display Venous Blood Gas: No Data to Display Pancreas Panel: No Data to Display Thyroid Panel: No Data to Display Infectious Disease: No Data to Display Blood Cultures: No Data to Display Toxicology Panel: No Data to Display Panel: No Data to Display Anesthesia Assessment and Plan Anesthesia History Personal History: No History of Anesthesia Complications Family History: No Family History of Anesthesia Complications Exercise Tolerance Exercise Tolerance: Metabolic Equivalents>4 Cardiac & Pulmonary Exam Cardiac Exam: Normal S1/S2 Heart Sounds Pulmonary Exam: Clear Bilateral Breath Sounds Implantable Cardiac Device Does patient have a Pacemaker or an ICD?: No Airway Exam Known Difficult Airway: No Mallampati Class: 4 Mouth Opening: Narrow (< 3cm) Thyromental Distance: Greater than 3 cm Neck Range of Motion: Full ROM Neck Circumference: Normal Teeth Condition: Edentulous ASA Classification ASA Score: ASA 3 Emergency Case?: No NPO Status NPO Status: NPO Clears >2 hours, Solids >8 hours Status Status: Not Relevant due to Medical History Anesthesia Plan Resuscitation Status: Full Code Anesthesia Technique: General Anesthesia Airway Planned: Endotracheal Tube Pain Management: Surgeon and patient request nerve block Monitors Used: Standard Monitors Preoperative Comments:: 52 yo female for partial knee replacement. Sig PMHx: HTN (HCTZ), GERD (omeprazole), hypothyroid (on replacement), depression/bipolar (venlafaxine, carbamazepine), back/neck pain, chronic pain, s/p gastric sleeve. former smoker, occ EtOH. Previous Anes: - knee scope, pablo 2 grade 2a, masked with OPA. - knee scope, pablo 2 grade 1, masked with OPA. Discussed spinal vs GA, she is not interested in a spinal and would like GA. Discussed regional anesthesia, she would like this, but is not interested in it being performed while awake. We discussed the increased risk of nerve injury of nerve blocks under GA and she agrees to proceed.
[2023-02-22] MEDS: Acetaminophen 500 MG TAB 1000 MG PO (06:33)
[2023-02-22] MEDS: Celecoxib 200 MG CAP 400 MG PO (06:33)
[2023-02-22] MEDS: Lactated Ringers 1,000 ML 30 ML IV (06:53)
--- NOTE | 2023-02-22 07:15 | DI.RAD_ITS ---
Exam(s) XR KNEE LT 2V AP,LAT EXAM: XR KNEE LT 2V AP,LAT CLINICAL HISTORY: Left knee arthritis. TECHNIQUE: 2D digital imaging was performed. COMPARISON: CR XR KNEE RT 3V AP,LAT,DIANE from 12/03/2022 CR XR STANDING ALIGNMENT from 01/23/2023 FINDINGS: Two views. Position and alignment of the components of the medial hemiarthroplasty satisfactory. The lateral co mpartment exhibits normal height. No chondrocalcinosis. IMPRESSION: Satisfactory postop appearance. DATA REPOSITORY: RADIATION DOSE DELIVERED:
--- NOTE | 2023-02-22 07:21 | W.PM.DSUDISC ---
Date of service: 02/22/23 Time of Service: 13:00 Discharge Plan Disposition Patient Disposition: Home Condition: Stable Discharge Details Attending Provider: Saw Barriga Primary Care Provider: Vasu Brian Home Meds and New Rx's Prescriptions: New aspirin 81 mg tablet,delayed release (DR/EC) 81 mg PO BID 30 Days Qty: 60 0RF naproxen 250 mg tablet 250 - 500 mg PO BID PRNQty: 40 0RF Rx Instructions: take with a meal oxycodone 5 mg tablet 5 - 10 mg PO Q4H MDD 30 mg PRN (Reason: moderate to severe pain) Qty: 18 0RF Continued venlafaxine [Effexor XR] 150 mg capsule,extended release 24hr 300 mg PO DAILY risperidone [Risperdal] 0.5 mg tablet 0.5 mg PO DAILY golo capsule PO TID polyethylene glycol 3350 17 gram/dose powder 238 g PO ONCE Qty: 238 0RF Rx Instructions: take per colonoscopy instructions Linzess 145 mcg capsule 145 mcg PO DAILY Qty: 30 12RF carbamazepine 200 mg capsule, ER multiphase 12 hr 400 mg PO BID omeprazole magnesium 20 mg tablet,delayed release (DR/EC) 20 mg PO DAILY Qty: 90 3RF Patient Comments: pt. unsure if she took today 02/22/23 hydrochlorothiazide 12.5 mg tablet 12.5 mg PO DAILY AM Qty: 90 3RF levothyroxine 100 mcg tablet 100 mcg PO DAILY Qty: 90 3RF Rx Instructions: Administer in the morning on an empty stomach, at least 30-60 minutes before food acetaminophen 500 mg tablet 500 mg PO Q6H PRN (Reason: pain) Qty: 60 2RF Discontinued ibuprofen 600 mg tablet 600 mg PO TID PRN (Reason: pain) Qty: 60 0RF Discharge Instructions Additional Instructions: Surgery: Left medial unicondylar knee replacement Activity: Protected weight bearing with crutches or walker for 6-8 weeks. Recommend elevation to minimize swelling and discomfort. Walk as comfort allows. It is important to restore full knee extension as soon as possible. Gently increase knee flexion over the next few weeks. Do not rest with pillows behind knee to prevent knee from getting stuck bent. Encourage ankle pumps and wiggling toes to increase circulation. A physical therapy prescription will be sent electronically to begin in 2-3 weeks. Prescriptions: Aspirin 81 mg take 1 twice a day to prevent a blood clot 30 days Naproxen 250 mg take 1-2 every 12 hours with a meal as needed for moderate pain Oxycodone 5 mg take 1-2 every 4-6 hours as needed for severe pain You may use [id number] Tylenol (acetaminophen) as needed for mild pain. These pain medications may be taken all at once or in different combinations as needed. Also, recommend Colace (docusate) as a stool softener as surgery and pain medicine cause constipation. You may try [id number] diphenhydramine (Benadryl) 25-50 mg nightly as a sleep aid Dressings: Leave Band-Aid in place until follow-up. Keep clean and dry at all times. May remove Scooby wrap tomorrow. May re-wrap with Scooby wrap to help control swelling as needed. Follow-up: 10-[address] Barriga 03/05/23 @ 10:15AM You may take off the leg compression Scooby wrap and stockings tomorrow at home. You may also leave them on a few days longer if you have a history of leg swelling or edema. Let us know right away if you develop any redness, drainage, fevers, chest pain, or trouble breathing. Do not drink alcohol or drive for at least 24 hours after anesthesia. Please call the office during business hours with any questions or concerns. Stand Alone Forms: Anesthesia Discharge Inst., Anes.Nerve Block Instructions, Rhett Ibrahim (DSU) Referrals: Saw Barriga MD [ [facility] STAFF PHYSICIAN] - 03/05/23 10:15 am ( ) Discharge Orders Discharge Orders: Discharge Order (Routine); Ordered 02/22/23 Ordered By: Saw Barriga DS: Diagnosis Discharge Diagnosis (1) Arthritis of knee, left: Status: Acute
--- NOTE | 2023-02-22 07:23 | W.PM.OP ---
Date of service: 02/22/23 Time of Service: 07:30 Operative Note Operative Note DATE OF PROCEDURE: 02/22/23 PRE-OP DIAGNOSIS: Left knee medial compartmental arthritis POST-OP DIAGNOSIS: same PROCEDURE: Left knee medial unicompartmental arthroplasty, CPT # 02032 The spa assistant manager was medically required as this procedure involves retraction, protection of neurovascular structures, and manipulation of multiple instruments and implants at the same time, which cannot be done without a skilled spa assistant manager. SURGEON: Saw Barriga MEDICAL RECORDS SPECIALIST: Carmen Richardson Refer to Anesthesia Record ESTIMATED BLOOD LOSS: 150 TOURNIQUET TIME: 109 COMPLICATIONS: None Patient was transported to: PACU Patient's condition: stable Implants: DePuy Sigma HP partial knee size 2 metal-backed tibial tray, 7 mm tibial insert fixed bearing, size 3 femoral component Indications: Please see complete medical record for details. Findings: Medial compartment joint space loss, marginal osteophytes, moderate to high-grade chondromalacia due to extruded meniscus and root tear. Intact ACL. Intact lateral compartment. Mild central trochlear focal chondromalacia. Procedure Description: The patient was taken to the operating room and transferred to the operating room table. General anesthesia was induced. All bony prominences were well-padded. Preoperative antibiotics and 1 g TXA were administered. A tourniquet was placed loosely over padding high on the patient's thigh. The knee and lower extremity were prepped and draped in the usual sterile fashion. The correct patient, procedure, and side of the procedure were all verified prior to incision. A slightly medial of midline longitudinal approach was preinjected with 29 cc of 0.25% bupivacaine containing epinephrine and then used to the knee extending from the superior pole the patella to the distal aspect of the tibial tubercle. The quadriceps tendon, patella borders, and patellar tendon were exposed. A full-thickness arthrotomy was performed starting splitting the quadriceps tendon and leaving a sleeve of tissue on the medial aspect of the patella and taking care to progress along the medial margin the patellar tendon. The MCL was elevated off the proximal medial tibia. The and large soft tissue envelope had a steady venous ooze so the extremity was exsanguinated and tourniquet inflated to 250 mmHg. The tibial alignment jig was set in place on the anterior medial aspect of the tibia and carefully adjusted to achieve proper alignment in the coronal and sagittal planes. Reciprocating saw was used to create the vertical cut at the medial aspect of the medial tibial eminence taking care to protect the ACL ligament footprint. The transverse cut was then done using the microsagittal saw through the jig taking care to retract and protect the MCL. The bone piece and cut were inspected and found to be appropriate for patient anatomy. A box rasp was used to clean up the cut especially the L component. The 7 mm spacer block was inserted and found to have good equal stability in full extension and 90 degrees of flexion with approximately 2 mm of joint space opening in 20-30 degrees of flexion. With the knee in extension, the tibial trial spacer block was used to reagan the rotational alignment and anterior extent of the femoral component. The spacer block was removed and the tibia was sized with the depth gauge. The distal femoral cutting block was inserted taking care to orient it appropriately. The cut was done using the saw through the guide. Next the posterior cutting block was used again taking care to orient it appropriately and cut done with the saw through the guide. The guide was removed, and the femur was sized with the femoral sizing blocks. The appropriate sized finishing cutting jig was selected. Care was taken to ensure the block was flush with the resected distal femur bone surface. A curved gouge was used to cut the profile of the proximal tip of the femoral prosthesis, reagan the extent of the anterior chamfer cut, and prevent trochlear cartilage delamination. The the anterior cut was done using the osteotomes, the posterior chamfer cut was done through the jig, and the drill was used to drill the 2 peg holes. The cutting block and bone cuts were removed. The medial meniscus remnant was removed. The femoral component trial was placed on the distal femur and the 7 mm spacer block confirmed appropriate balancing in flexion, extension, and again 2 mm of medial joint space opening in 20-30 degrees of flexion. It was challenging to assess stability in flexion given the significant thigh weight as well as thigh to calf soft tissue impingement with flexion beyond 95 degrees. Tibial template was inserted and the size confirmed to be appropriate. The keel was used by hand to remove bone from the slot and the tibial peg drill was used in the peg hole. The pulse lavage was used to clean the bone surfaces. SmartSet medium viscosity cement was prepared. At the appropriate time during the early working phase, the cement was applied to the backside of the tibial and femoral components. Then, cement was carefully placed and pressurized into the proximal tibia taking care to only have minimal cement posteriorly. The tibial component was inserted at an angle and then impacted directing pressure from posterior to anterior to keep the flow of cement from posterior to anterior. Cement was then applied to the distal femur and the femoral component impacted. Excess cement was removed. The knee was brought into full extension and this position with axial load was maintained until the cement was completely hardened at 20 minutes A combination R.E.C.K. (123 mg Ropivacaine, 0.25 mg Epinephrine, 0.04 mg Clonidine, and 15 mg Ketorolac) 50 ml injection was widely infiltrated about the knee. The wound was copiously irrigated with the pulse lavage and Surgiphor. Tibial tray mail inserter was removed, and the final tibial insert was inserted and clicked into place. The knee was tested through range of motion found to be stable with equal balancing from full extension to flexion past 90 degrees and a couple millimeters of medial joint space opening in 20-30 degrees of flexion. Appropriate hemostasis was achieved. The capsule was approximated using #1 Vicryl in a figure-of-8 interrupted fashion and then closed using Stratafix #1 PDS barbed suture in a running fashion. The superficial layers were irrigated. Subcutaneous tissue was closed using 2-0 Monocryl in a buried interrupted fashion. Skin was closed using 3-0 Monocryl in a buried subcuticular fashion. The skin incision was glued and then covered with a Mepilex Ag dressing. An Scooby wrap was applied from the foot up to the thigh. The patient awoke from anesthesia without complication was transferred to the recovery room in stable condition.
--- NOTE | 2023-02-22 08:02 | W.ANESNERVE ---
Nerve Block Single Injection Procedure Date and Time Date Performed: 02/22/23 Procedure Start: 07:50 Location Where Procedure Performed Procedure Location: Operating Room Procedure Stop: 07:54 Reason Performed: Postoperative Analgesia Requesting Provider: Saw Barriga Timeout Performed Timeout Performed: Yes Monitoring Used ECG, Blood Pressure, SpO2 and ETCO2 Sterility Sterility: Hand Hygiene, Surgical Cap, Surgical Mask, Sterile Gloves and Chlorhexidine Sedation Given During Procedure Sedation Given (Indicate Dose Given): No Sedation given Patient Mental Status Patient Mental Status: Performed under general anesthesia Nerve Block 1st Nerve Block: Laterality: Left Block Type: Adductor Canal Ultrasound Image Saved?: Yes Needle / Catheter Used: 80mm SonoPlex II Local Anesthetic Bolus (Indicate Dose Given): Bupivacaine 0.25% Dose:: 7 mL Additives (Indicate Dose Given): None Ultrasound: Sterile probe cover and gel used Nerve Stimulator: Not Used Paresthesia: None Procedure Tolerated: No Complications Procedure Outcome: Successful Performed By: Wojciech Warner 2nd Nerve Block: Laterality: Left Block Type: Other (anterior femoral cutaneous. ) Ultrasound Image Saved?: No Needle / Catheter Used: 80mm SonoPlex II Local Anesthetic Bolus (Indicate Dose Given): None and Bupivacaine 0.25% Dose:: 4 mL Additives (Indicate Dose Given): None Ultrasound: Sterile probe cover and gel used Nerve Stimulator: Not Used Paresthesia: None Procedure Tolerated: No Complications Procedure Outcome: Successful Performed By: Wojciech Warner
[2023-02-22] MEDS: ceFAZolin 3,000 MG in Normal Saline 100 ML 200 MG IVPB (08:07)
[2023-02-22] MEDS: Bupivacaine 0.25% Pres-Free 30 ML VIAL (09:02)
[2023-02-22] MEDS: EPINEPHrine 10 MG/10 ML ML (09:02)
[2023-02-22] MEDS: fentaNYL 100 MCG/2 ML VIAL IVP ×2 (11:40→11:46)
[2023-02-22] MEDS: Normal Saline 10 ML VIAL IJ (11:58)
[2023-02-22] MEDS: HYDROmorphone 2 MG/ML SYR IVP ×3 (11:58→12:42)
--- NOTE | 2023-02-22 12:17 | W.ANESPOSTOP ---
Postoperative Evaluation Date, Time and Location Date Performed: 02/22/23 Time Performed: 12:17 Patient Location: PACU Vital Signs Most Recent Imported Vital Signs: Most Recent Vital Signs Temp Pulse Resp BP Pulse Ox 36.6 C 85 18 145/81 H 94 02/22/23 12:01 02/22/23 12:01 02/22/23 12:01 02/22/23 11:47 02/22/23 12:01 Pain Score Most Recent Pain Score: Most Recent Pain Score Pain Level 9 02/22/23 12:01 Assessment Mental Status: Awake (Alert & Oriented to Patient Baseline) Airway and Respiratory Function: Patent airway with normal (patient baseline) respiratory exam Cardiovascular Function: Hemodynamically Stable Hydration Status: Adequately Hydrated Nausea & Vomiting: Active Nausea or Vomiting Present Nausea and Vomiting Management: Nausea and vomiting active, being addressed with medication Pain: Pain is Moderate or Severe Postoperative Pain Management: Pain being addressed with medication Peripheral Nerve Block: Regional nerve block not resolved at time of post operative discharge
[2023-02-22] MEDS: Droperidol 5 MG/2 ML VIAL 0.625 MG IVP (12:22)
[2023-02-22] MEDS: ACETAMINOPHEN 1,000 MG/100 ML BTL 400 MG IVPB (13:47)
[2023-02-22] MEDS: Ketorolac 15 MG/ML VIAL IVP (13:48)
[2023-02-22] MEDS: Normal Saline Flush 10 ML SYR IV (13:53)
--- NOTE | 2023-02-22 15:29 | IN_ITS ---
PT Notes Physical Therapy Day Surgery Initial Evaluation Date: 02/22/2023 Referring Doctor: Saw Barriga MD PT Orders: PT CONSULT: post op PT for ambulation/stairs today with walker and/or crutches Precautions: Per Dr. Barriga as of 02/22/2023: Protected weight bearing in the L LE with AD for 6-8 weeks. Recommend elevation to minimize swelling and discomfort. Walk as comfort allows. No pillow under the L knee. Patient Profile/Admitting Diagnosis: Patient is a 52-year-old female S/P L knee medial unicompartmental arthroplasty on postoperative day 0. PMHX: All Active Problems (Updated 12/29/22 @ 14:39 by Annetta Prasad DO) Chronic constipation (Acute) Bipolar disorder, unspecified (Acute) Hypertension (Chronic) Resolved s/p bariatric surgery & weight loss; re-started med 02/2020 Hypothyroidism (Chronic) Obesity (Chronic) Hyperlipidemia, unspecified (Acute) 09/2019 labs: 10-year ASCVD risk = ~0.7% Gastroesophageal reflux disease (Chronic) Constipation (Acute) Acute medial meniscus tear of left knee (Acute) surgically repairedPatellar tendonitis of left knee (Acute) Bilateral knee pain (Acute) Internal derangement of right knee (Acute) Complex tear of medial meniscus of right knee (Acute) Medical History (Updated 12/29/22 @ 14:39 by Annetta Prasad DO) COVID-19 Onset 06/27/22L eft knee pain Cystitis Scapulothoracic bursitis of both shoulders Tendinitis of long head of biceps brachii of left shoulder Impingement syndrome of left shoulder Social phobia, unspecified Moderate, NKHSHeel spur Chronic pain Impingement syndrome of right shoulder Bursitis of right shoulder Tendonitis of long head of biceps brachii of right shoulder Calcific tendinitis of right shoulder Pain, joint, hip, left Back pain Cryptogenic sensory polyneuropathy Legs Urinary incontinence Insomnia Plantar fasciitis Vitamin D deficiency, unspecified Sleep apnea Pt reports she had a negative sleep study --> ruled-out Polycystic ovarian disease Spondylosis without myelopathy or radiculopathy, cervical region Cervicalgia Surgical History Status post medial meniscus repair of left knee 10/2021 History of bariatric surgery S/P removal of ovarian cyst H/O exploratory laparotomy 1987 S/P tubal ligation 1992 S/P cholecystectomy 2000 S/P endoscopy 2012 H/O arthroscopy of knee 2000 S/P gastric bypass Laparoscopic sleeve Social History/Home Situation: Has 21 steps to enter the house with rail on the R side going up. and son to provide needed help at home. Equipment Owned/DME: None Subjective: Looking forward to PT. Reports pain in L knee at 3-4/10 at rest adn with movement. Objective: General Observation: Seated on bedside chair. EL wrap to L LE. Cryocuff to L knee. TEDS to R leg. Mental Status: A and O x 4 Pain: As above ROM: Right Lower Extremity: Hip flexion WFL. Hip abduction WFL. Knee flexion WFL. Ankle dorsiflexion WFL. Ankle plantarflexion WFL. Left Lower Extremity: Hip flexion WFL. Hip abduction WFL. Knee flexion 20 degrees to 100 degrees actively. Kneee extension -20 degrees. Ankle dorsiflexion WFL. Ankle plantarflexion WFL. Strength: Right Lower Extremity: Hip flexors 5/5. Hip abductors 5/5. Knee flexors 5/5. Knee extensors 5/5. Ankle dorsiflexors 5/5. Ankle plantarflexors 5/5. Left Lower Extremity:Hip flexors 4/5. Hip abductors 4/5. Knee flexors 3-/5. Knee extensors 3-/5. Ankle dorsiflexors 5/5. Ankle plantarflexors 5/5. Sensation: intact as to pain and light pressure in B LE Bed Mobility/Transfers: Minimal cues provided for use of B UE for support, correct gai pattern, and AD management Supine to sit stand by assist Sit to stand contact guard assist Stand to sit stand by assist Bed to chair stand by assist Gait: Facilitated safe and correct performance of level surface ambulation using FWW with reciprocal step through heel-toe gait pattern requiring only minimal verbal cueing for gait pattern and AD management. No increase in pain reported. Stairs: Guided patient with safe and correct navigation of 6 x 4-inch steps and 4 x 6 inch steps while holding onto one rail with step-to gait pattern requring minimal assist for correct movement sequence. Balance: Static Sitting: Normal Dynamic Sitting: Normal Static Standing: Fair Dynamic Standing: Fair Special Tests: Mobility Limitations Standardized Measure [facility] AM-PAC 6 clicks Basic Mobility Inpatient Short Form: Raw Score: 24 CMS Score: 0% deficit Informed Consent/Education: Patient instructed in purpose of PT consult. Packet containing L unicompartmental arthroplasty exercise protocol has been given to patient. Education and training on initial set of exercises that can be done at home have been completed with patient. Trained patient with correct performance of exercises below to maximize motor co ntrol, joint flexibility, soft tissue extensibility of the L unicompartment arthroplasty musculature: Access Code: [email or web address] URL: [email or web address] Date: 02/25/2023 Prepared by: Preeti Bose Exercises - Supine Quad Set - 1 x daily - 7 x weekly - 1 sets - 10 reps - 5 hold - Supine Heel Slide - 1 x daily - 7 x weekly - 1 sets - 10 reps - 5 hold - Supine Ankle Pumps - 1 x daily - 7 x weekly - 1 sets - 10 reps - 5 hold - Small Range Straight Leg Raise - 1 x daily - 7 x weekly - 1 sets - 10 reps - 5 hold - Seated March - 1 x daily - 7 x weekly - 1 sets - 10 reps - 5 hold Assessment: Needs use of FWW for all mobility Adl Perfoamce to reduce fall risk and maximize independence. Patient presents with clinical signs and symptoms consistent with current/admitting diagnoses that have resulted to mobility limitations, gait instability, generalized weakness, and impairment of motor control as demonstrated by the following impairment level findings: 1. Decreased strength to left knee major muscle groups 2. Impaired standing balance 3. Limitation of joint range of motion in left knee Impairments are contributing to the following functional limitations: 1. Inability to safely ambulate without assistive device 2. Increase completion time for mobility ADL performance 3. Increased fall risk Patient is assessed as a [id number] moderate complexity based on the following: History: 52-year-old female with impairment level findings, functional limitations, and past medical history as indicated above Examination: Demonstrable impairment in strength, balance, and mobility level with underlying impairments and functional limitations as documented above Presentation: Evolving Decision Makin moderate Goals: N/A. PT evaluation and 1-2 treatment sessions only for functional mobility training using recommended AD and for HEP instruction. Plan of Care/Treatment Plan: N/A. PT evaluation and 1-2 treatment session only for functional mobility training using recommended AD and for HEP instruction. DISCHARGE RECOMMENDATIONS: Home when medically cleared by orthopedic surgeon. Recommend outpatient PT services in order to optimize functional mobility outcomes and facilitate return to independent community ambulation without an assistive device. TREATMENT CODE/TIME: 13631 x 25 minutes for 1 unit beginning at 15:29 PM. Thank you for the opportunity to participate in the care of this patient. Preeti Bose PT, DPT, CLT [facility] [place], [place]
== END 2023-02-22 16:50 | disposition home or self-care (01) ==
PROVIDERS: PCP Nurse Practitioner Family; Visit Provider Student in an Organized Health Care Education/Training Program
PROC: (CPT 27446; principal; 2023-02-22 07:30)
DX: M17.12 Unilateral primary osteoarthritis, left knee (principal); I10 Essential (primary) hypertension; K21.9 Gastro-esophageal reflux disease without esophagitis
CPT/HCPCS: 27446; C1776; 76942; 97162; 73560; J0131; J0690; J1100; J1170; J1790; J1885; J2250; J2405; J3010; J3475

== ENCOUNTER 2023-03-05 10:02 | Outpatient (CLI) | payer OTHER, MEDICAID, SELFPAY ==
--- NOTE | 2023-03-05 09:45 | DI.RAD_ITS ---
Exam(s) XR KNEE LT 2V AP,LAT EXAM: XR KNEE LT 2V AP,LAT CLINICAL HISTORY: left knee f/u. TECHNIQUE: 2D digital imaging was performed. COMPARISON: CR XR KNEE LT 2V AP,LAT from 02/22/2023 FINDINGS: Two views. There is stable position alignment of the components of the medial arthroplasty. No fracture or loos ening evident. Height of the lateral compartment is maintained. No evidence of osteomyelitis. IMPRESSION: Stable satisfactory appearance DATA REPOSITORY: RADIATION DOSE DELIVERED:
== END 2023-03-05 10:03 | disposition home or self-care (01) ==
LOC: DIORS 10:03
PROVIDERS: PCP Nurse Practitioner Family; Visit Provider Student in an Organized Health Care Education/Training Program
DX: Z47.1 Aftercare following joint replacement surgery; Z96.652 Presence of left artificial knee joint
CPT/HCPCS: 73560

== ENCOUNTER 2023-03-18 21:48 | Emergency (ER) | payer OTHER, MEDICAID, SELFPAY ==
[2023-03-18 21:56] VITALS: BP 123/82; PULSE 77; RESP 16; TEMP 36.8; O2SAT 99
--- NOTE | 2023-03-18 22:43 | DI.RAD_ITS ---
Exam(s) XR KNEE LT 3V AP,LAT,DIANE EXAM: XR KNEE LT 3V AP,LAT,DIANE CLINICAL HISTORY: left knee pain post partial knee replacement. TECHNIQUE: 2D digital imaging was performed. Three images were obtained. AP, AP tunnel and lateral views were obtained. COMPARISON: CR XR KNEE LT 2V AP,LAT from 03/05/2023 FINDINGS: BONES: There are stable post operative changes of a partial left knee replacement present. No fractu re or dislocation. JOINTS: The orthopedic hardware is in good position. No evidence of hardware loosening. There is a small joint effusion. SOFT TISSUE: Mild soft tissue swelling. IMPRESSION: 1. Stable postoperative changes. 2. Small joint effusion. Mild soft tissue swelling. DATA REPOSITORY: RADIATION DOSE DELIVERED:
--- NOTE | 2023-03-18 23:04 | ED.GENADUL_ITS ---
Discharge Plan Disposition Patient Disposition: Home Discharge Details Clinical Impression: Acute postoperative pain of left knee Primary Care Provider: Vasu Brian ED Provider: Martha Nieves Home Meds and New Rx's Prescriptions: Continued venlafaxine [Effexor XR] 150 mg capsule,extended release 24hr 300 mg PO DAILY risperidone [Risperdal] 0.5 mg tablet 0.5 mg PO DAILY golo capsule PO TID Linzess 145 mcg capsule 145 mcg PO DAILY Qty: 30 12RF carbamazepine 200 mg capsule, ER multiphase 12 hr 400 mg PO BID omeprazole magnesium 20 mg tablet,delayed release (DR/EC) 20 mg PO DAILY Qty: 90 3RF Patient Comments: pt. unsure if she took today 02/22/23 hydrochlorothiazide 12.5 mg tablet 12.5 mg PO DAILY AM Qty: 90 3RF levothyroxine 100 mcg tablet 100 mcg PO DAILY Qty: 90 3RF Rx Instructions: Administer in the morning on an empty stomach, at least 30-60 minutes before food ibuprofen 800 mg tablet 800 mg PO Q8H PRN (Reason: pain) Qty: 90 2RF acetaminophen 500 mg tablet 500 mg PO Q6H PRN (Reason: pain) Qty: 60 2RF aspirin 81 mg tablet,delayed release (DR/EC) 81 mg PO BID 30 Days Qty: 60 0RF naproxen 250 mg tablet 250 - 500 mg PO BID PRNQty: 40 0RF Rx Instructions: take with a meal oxycodone 5 mg tablet 5 - 10 mg PO Q4H MDD 30 mg PRN (Reason: moderate to severe pain) Qty: 18 0RF Discharge Instructions Instructions: Knee Pain (ED) Additional Instructions: Take Tylenol 650 every 6 hours as needed for pain Ice as tolerated Follow-up with your orthopedist this week for reassessment of placed referral Refrain from physical therapy until you are cleared by orthopedics and return earlier should he have new or worsening complaints including fever, redness, worsening pain Referrals: Saw Barriga MD [ [facility] STAFF PHYSICIAN] - Discharge Data Discharge Date/Time-TO BE ENTERED AT DEPARTURE: 03/18/23 23:36 Medical Decision Making 52-year-old female presenting with postoperative left knee pain, afebrile and nontoxic, wound, postoperative site without dehiscence, erythema, tenderness medially, no evidence of effusion, x-ray per radiology interpretation my review does not show evidence of acute abnormality, low suspicion clinically for infectious etiology of complaints Neurovascularly intact Given 4 tablets of oxycodone with risk of addiction reviewed and referred back to orthopedics Return precautions reviewed patient expressed understanding, no tenderness with palpation to calf, low suspicion clinically for DVT HPI General Date/Time Provider Initiated Documentation: 03/18/23 22:07 . HPI Narrative: This 52-year-old female presents with report of postoperative pain to the left knee. States she had surgery on 22 February and had physical therapy 2 weeks ago and developed some pain. She iced it and the pain resolved. She states that she has had intermittent pain since that time but went to physical therapy last evening and the pain has returned. Denies any calf pain or swelling, denies recent flights, surgeries, long drives. Related Data Home Medications Medication Instructions Recorded Confirmed venlafaxine 150 mg 300 mg PO DAILY 04/15/19 03/18/23 capsule,extended release 24 hr (Effexor XR) carbamazepine 200 mg 400 mg PO BID 02/25/20 03/18/23 capsule,extended release [id number] risperidone 0.5 mg tablet 0.5 mg PO DAILY 01/19/22 03/18/23 (Risperdal) acetaminophen 500 mg tablet 500 mg PO Q6H PRN pain #60 tabs 04/03/22 03/18/23 omeprazole magnesium 20 mg 20 mg PO DAILY #90 tabs 12/26/22 03/18/23 tablet,delayed release golo PO TID 12/27/22 03/05/23 linaclotide 145 mcg capsule 145 mcg PO DAILY #30 caps 01/01/23 03/18/23 (Linzess) hydrochlorothiazide 12.5 mg tablet 12.5 mg PO DAILY AM #90 tab-caps 01/23/23 levothyroxine 100 mcg tablet 100 mcg PO DAILY #90 tab-caps 02/18/23 03/18/23 aspirin 81 mg tablet,delayed 81 mg PO BID Prevent blood clot 30 02/22/23 03/18/23 release days #60 tabs naproxen 250 mg tablet 250 - 500 mg (1 - 2 x 250 mg) PO 02/22/23 03/18/23 BID PRN #40 tabs oxycodone 5 mg tablet 5 - 10 mg (1 - 2 x 5 mg) PO Q4H 02/22/23 03/18/23 PRN moderate to severe pain #18 tabs ibuprofen 800 mg tablet 800 mg PO Q8H PRN pain #90 tabs 02/27/23 03/18/23 Previous Rx's Medication Instructions Recorded acetaminophen 500 mg tablet 500 mg PO Q6H PRN pain #60 tabs 04/03/22 omeprazole magnesium 20 mg 20 mg PO DAILY #90 tabs 12/26/22 tablet,delayed release linaclotide 145 mcg capsule 145 mcg PO DAILY #30 caps 01/01/23 (Linzess) hydrochlorothiazide 12.5 mg tablet 12.5 mg PO DAILY AM #90 tab-caps 01/23/23 levothyroxine 100 mcg tablet 100 mcg PO DAILY #90 tab-caps 02/18/23 aspirin 81 mg tablet,delayed 81 mg PO BID Prevent blood clot 30 02/22/23 release days #60 tabs naproxen 250 mg tablet 250 - 500 mg (1 - 2 x 250 mg) PO 02/22/23 BID PRN #40 tabs oxycodone 5 mg tablet 5 - 10 mg (1 - 2 x 5 mg) PO Q4H 02/22/23 PRN moderate to severe pain #18 tabs ibuprofen 800 mg tablet 800 mg PO Q8H PRN pain #90 tabs 02/27/23 Allergies Allergy/AdvReac Type Severity Reaction Status Date / Time gabapentin AdvReac Mild makes her Verified 03/18/23 22:06 feel drunk sumatriptan [From Imitrex] AdvReac Verified 03/18/23 22:06 General Stated Complaint: Orthopedic PEACE: 4 PFSH All Active Problems (Updated 03/18/23 @ 23:06 by NELLI Mcelroy) Acute postoperative pain of left knee (Acute) Arthritis of knee, left (Acute) Chronic constipation (Acute) Bipolar disorder, unspecified (Acute) Hypertension (Chronic) Resolved s/p bariatric surgery & weight loss; re-started med 02/2020 Hypothyroidism (Chronic) Obesity (Chronic) Hyperlipidemia, unspecified (Acute) 09/2019 labs: 10-year ASCVD risk = ~0.7% Gastroesophageal reflux disease (Chronic) Constipation (Acute) Internal derangement of right knee (Acute) Complex tear of medial meniscus of right knee (Acute) Medical History (Updated 03/18/23 @ 23:06 by NELLI Mcelroy) Acute medial meniscus tear of left knee surgically repaired COVID-19 Onset 06/27/22 Left knee pain Cystitis Scapulothoracic bursitis of both shoulders Tendinitis of long head of biceps brachii of left shoulder Impingement syndrome of left shoulder Social phobia, unspecified Moderate, NKHS Heel spur Chronic pain Impingement syndrome of right shoulder Bursitis of right shoulder Tendonitis of long head of biceps brachii of right shoulder Calcific tendinitis of right shoulder Pain, joint, hip, left Back pain Cryptogenic sensory polyneuropathy Legs Urinary incontinence Insomnia Plantar fasciitis Vitamin D deficiency, unspecified Sleep apnea Pt reports she had a negative sleep study --> ruled-out Polycystic ovarian disease Spondylosis without myelopathy or radiculopathy, cervical region Cervicalgia Surgical History H/O arthroscopic knee surgery right Status post medial meniscus repair of left knee 10/2021 History of bariatric surgery S/P removal of ovarian cyst H/O exploratory laparotomy 1987 S/P tubal ligation 1992 S/P cholecystectomy 2000 S/P endoscopy 2012 H/O arthroscopy of knee 2000 S/P gastric bypass Laparoscopic sleeve Family History Mother Alcohol abuse Depression Diabetes Hypertension Father Alcohol abuse Cancer Heart disease Hypertension Sister Alcohol abuse Depression Hypertension Substance abuse Brother Alcohol abuse Substance abuse Brother No problems noted. Brother Depression Son No problems noted. Daughter Alcohol abuse Depression Substance abuse Social History Smoking/Tobacco Use Status: Former Tobacco Use tobacco type: cigarettes Quit Date: 04/08/12 Pack-years: 25 Tobacco: How many years used: 25 Second Hand Exposure: Yes Smoking risk assessment performed?: Yes Alcohol Intake: current Alcohol Intake frequency: holidays/special occasions only Alcohol type: wine Drug use: Never Substance use type: does not use Counseling given: No Details: alcohol: two years Adopted: Yes Caregiver/Support person: No Foster care: Yes Household members: friend(s) Housing: apartment Number of Children: 2 Communication Needs: Hard of Hearing Education Level: high school Details: GED & Associate's degree in business Do you need help understanding health information?: Never current occupation: Disabled Pets and animals: Yes Pets and animals: cat(s) and dog(s) Sexually active: Yes Do you think of yourself as: straight/heterosexual Current gender identity: female What is your relationship status?: How often do you talk on the phone with friends or family?: three or more times per week How often do you get together with friends or relatives?: once per week How often do you attend holiness or samaritan services?: 1-3 times per year Do you belong to any clubs or organized social groups?: no Panel score (0-1 are the most socially isolated patients): 1 What type of physical activity do you participate in: regular exercise Duration: < 15 minutes/day Frequency: 1-2 times per week Renea/Methodist: Congregational Special renea needs: No Seatbelt use: always Helmet use: Yes Helmet use: always Drive intox or ride w/intox transport driver: No Do you feel safe at home: Yes Do you feel safe in your relationship?: Yes Female Reproductive History Menstrual control method: permanent sterilization History History 3 Para 2 Hx # Term Pregnancies Multiple births Hx # Pregnancies Ectopic pregnancies AB induced Hx Number of Living Children AB spontaneous Course Vital Signs Vital signs: Vital Signs Temperature 36.8 C 03/18/23 21:56 Pulse 77 03/18/23 21:56 Respiratory Rate 16 03/18/23 21:56 Blood Pressure 123/82 03/18/23 21:56 Pulse Oximetry 99 03/18/23 21:56 Temperature 36.8 C 03/18/23 21:56 Temperature Source Temporal Artery Scan 03/18/23 21:56 Pulse 77 03/18/23 21:56 Respiratory Rate 16 03/18/23 21:56 Respiratory Effort Normal, Non-Labored 03/18/23 22:02 Blood Pressure 123/82 03/18/23 21:56 Pulse Oximetry 99 03/18/23 21:56 Oxygen Delivery Method Room Air 03/18/23 21:56 Oxygen Flow Rate 0 03/18/23 21:56 Pain Level 8 03/18/23 22:03
--- NOTE | 2023-03-18 23:18 | DI.VRAD_ITS ---
PROCEDURE INFORMATION: Exam: XR Left Knee Exam date and time: 03/18/2023 10:31 PM Age: 52 years old Clinical indication: Prior surgery; Surgery date: <1 month; Patient HX: Left knee pain post partial knee replacement TECHNIQUE: Imaging protocol: Radiologic exam of the left knee. Views: 3 views. COMPARISON: CR XR KNEE LT 2V AP,LAT 03/05/2023 10:04 AM FINDINGS: Bones/joints: Left knee with a medial hemiarthroplasty. Prosthetic components are well positioned. No fractures. No osteolytic or destructive bone lesions. No significant joint effusion. Soft tissues: Mild soft tissue swelling of the knee. No soft tissue gas. IMPRESSION: 1. Left knee medial hemiarthroplasty and unremarkable positioned. 2. No acute skeletal or joint space changes. 3. Mild soft tissue swelling. 4. No significant interval change since 03/05/2023. Dictated and Authenticated by: Yung Cole MD. Ordering:GERA Tohmas MD
[2023-03-18 23:30] VITALS: BP 132/64; PULSE 85; RESP 17; TEMP 36.8; O2SAT 98
== END 2023-03-18 23:36 | disposition home or self-care (01) ==
PROVIDERS: Emergency Provider Physician Assistant; PCP Nurse Practitioner Family
DX: G89.18 Other acute postprocedural pain (principal); M25.561 Pain in right knee; I10 Essential (primary) hypertension; E03.9 Hypothyroidism, unspecified; M25.461 Effusion, right knee; Z96.651 Presence of right artificial knee joint; Z79.82 Long term (current) use of aspirin; Z98.84 Bariatric surgery status; Z79.899 Other long term (current) drug therapy
CPT/HCPCS: 73562; 99283

== ENCOUNTER 2023-03-27 09:42 | Outpatient (CLI) | payer OTHER, MEDICAID, SELFPAY ==
--- NOTE | 2023-03-27 08:29 | DI.RAD_ITS ---
Exam(s) XR KNEE LT 2V AP,LAT EXAM: XR KNEE LT 2V AP,LAT CLINICAL HISTORY: F/U LEFT KNEE UKA. TECHNIQUE: 2D digital imaging was performed. COMPARISON: CR,XR XR KNEE LT 3V AP,LAT,DIANE from 03/18/2023 FINDINGS: Two views. Medial hemiarthroplasty components remain in satisfactory position alignment with no fractures nor lo osening evident. The lateral compartment again exhibits normal height and no degenerative changes. There is no joint effusion. Bone density normal. No osseous lesions. IMPRESSION: Stable satisfactory appearance DATA REPOSITORY: RADIATION DOSE DELIVERED:
== END 2023-03-27 09:43 | disposition home or self-care (01) ==
LOC: DIORS 09:42
PROVIDERS: PCP Nurse Practitioner Family; Referring Provider Nurse Practitioner Family; Visit Provider Student in an Organized Health Care Education/Training Program
DX: Z96.652 Presence of left artificial knee joint (principal); Z47.1 Aftercare following joint replacement surgery
CPT/HCPCS: 73560

== ENCOUNTER → 2023-04-03 08:31 | Outpatient (BNVA) | payer OTHER, MEDICAID, SELFPAY | PROVIDERS: PCP Nurse Practitioner Family; Referring Provider Nurse Practitioner Family | DX: Z47.1 Aftercare following joint replacement surgery (principal); Z96.652 Presence of left artificial knee joint ==

== ENCOUNTER 2023-04-30 11:43 | Outpatient (CLI) | payer OTHER, MEDICAID, SELFPAY ==
--- NOTE | 2023-04-30 09:45 | DI.RAD_ITS ---
Exam(s) XR KNEE LT 2V AP,LAT EXAM: XR KNEE LT 2V AP,LAT CLINICAL HISTORY: F/U LEFT UKA. TECHNIQUE: 2D digital imaging was performed. Two images were obtained. AP and lateral views were ob tained. COMPARISON: CR XR KNEE LT 2V AP,LAT from 03/27/2023 FINDINGS: BONES: There are stable post operative changes of a partial left knee replacement present. No fractu re or dislocation. JOINTS: The orthopedic hardware is in good position. No evidence of hardware loosening. SOFT TISSUE: Normal. IMPRESSION: Stable postoperative changes. DATA REPOSITORY: RADIATION DOSE DELIVERED:
== END 2023-04-30 11:44 | disposition home or self-care (01) ==
LOC: DIORS 11:43
PROVIDERS: PCP Nurse Practitioner Family; Visit Provider Student in an Organized Health Care Education/Training Program
DX: Z96.652 Presence of left artificial knee joint (principal); Z47.1 Aftercare following joint replacement surgery
CPT/HCPCS: 73560

== ENCOUNTER 2023-06-05 11:42 | Outpatient (CLI) | payer OTHER, MEDICAID, SELFPAY ==
--- NOTE | 2023-06-05 08:45 | DI.RAD_ITS ---
Exam(s) XR KNEE LT 2V AP,LAT EXAM: XR KNEE LT 2V AP,LAT INDICATION: F/U LEFT UKA. COMPARISON: CR XR KNEE LT 2V AP,LAT from 04/30/2023 TECHNIQUE: 2D digital imaging was performed. Two views. FINDINGS: There has been no change in the alignment of the medial femoral tibial joint space prosthesis. There are no abnormal adjacent bony lucencies. Lateral femoral tibial joint space and patellofemoral join t are maintained. No visible joint effusion. Impression: Stable appearance of medial femoral tibial joint space prosthesis. DATA REPOSITORY: RADIATION DOSE DELIVERED:
== END 2023-06-05 11:43 | disposition home or self-care (01) ==
LOC: DIORS 11:42
PROVIDERS: PCP Nurse Practitioner Family; Visit Provider Student in an Organized Health Care Education/Training Program
DX: Z47.1 Aftercare following joint replacement surgery; T84.84XA Pain due to internal orthopedic prosthetic devices, implants and grafts, initial encounter; Z96.652 Presence of left artificial knee joint
CPT/HCPCS: 99214; 73560

== ENCOUNTER → 2023-06-12 01:05 | Outpatient (CLI) | payer OTHER, MEDICAID, SELFPAY ==
--- NOTE | 2023-06-12 07:30 | DI.CT_ITS ---
Exam(s) CT LOWER EXTREMITY LT WO EXAM: CT LOWER EXTREMITY LT WO CLINICAL HISTORY: S/P UNICONDYLAR replacement, ? HARDWARE FAILURE,lt knee arthritis,m17.12. TECHNIQUE: Imaging Protocol: Axial computed tomography images with coronal and sagittal reformatted images were created and reviewed. CONTRAST MATERIAL: Noncontrast COMPARISON: CR XR KNEE LT 2V AP,LAT from 06/05/2023 FINDINGS: Bones: There is a medial femoral tibial joint space prosthesis which creates artifact. This somewhat obscures the posterior soft tissues. No abnormal surrounding lucencies. There is no evidence of fr acture or dislocation. No cellulitic or osteomyelitic changes are identified. No lytic or sclerotic lesions are identified. Joints: A small joint effusion is seen. There is no significant joint space narrowing. No significa nt periarticular spurring. Soft Tissues: Mild anterior soft tissue swelling related to prior surgery. No posterior fluid colle ction is visible. IMPRESSION: Medial femoral tibial joint space prosthesis appears intact. No evidence of loosening. Small joint effusion. No visible Whitmore's cyst. RADIATION DOSE DELIVERED: Total DLP DATA REPOSITORY: All CT scans at this facility are submitted to the National Radiology Data Registry (NRDR) Dose Index Registry (DIR) with the [employer] (ACR). RADIATION OPTIMIZATION: All CT scans at this facility use at least one of these dose optimization te chniques: automated exposure control; mA and/or kV adjustment per patient size (includes targeted exa ms where dose is matched to clinical indication); or iterative reconstruction.
--- NOTE | 2023-06-12 07:45 | DI.US_ITS ---
Exam(s) US SOFT TISSUE EXTREMITY EXAM: US SOFT TISSUE EXTREMITY CLINICAL HISTORY: ? WHITMORE'S CYST, S/P UNI REPLACEMENT,synovial cyst,m71.21. TECHNIQUE: Ultrasound was performed using standard protocol. COMPARISON: CR XR KNEE LT 2V AP,LAT from 06/05/[address] LOWER EXTREMITY LT WO from 06/12/2023 FINDINGS: Sonographic assessment utilizing grayscale and color Doppler imaging was performed and targeted to th e area of clinical concern. A simple appearing fluid collection is noted in the posterior fossa measuring 0.6 x 2.1 x 1.4 cm. Th is may represent a small Whitmore's cyst. IMPRESSION: Small Whitmore's cyst. DATA REPOSITORY:
== END ==
PROVIDERS: PCP Nurse Practitioner Family; Visit Provider Student in an Organized Health Care Education/Training Program
DX: M71.21 Synovial cyst of popliteal space [Baker], right knee (principal); M17.12 Unilateral primary osteoarthritis, left knee; T84.84XA Pain due to internal orthopedic prosthetic devices, implants and grafts, initial encounter
CPT/HCPCS: 76881; 73700

== ENCOUNTER 2023-06-12 04:48 | Outpatient (CLI) | payer OTHER, MEDICAID, SELFPAY ==
[2023-06-12 07:50] LABS: Absolute Basophil Count 0.04 10^3/uL (0.0-0.2); Absolute Eosinophil Count 0.02 10^3/uL (0.0-0.7); Absolute Lymphocyte Count 1.89 10^3/uL (1.2-3.4); Absolute Monocyte Count 0.42 10^3/uL (0.1-0.8); Absolute Neutrophil Count 2.57 10^3/uL (1.2-6.7); Basophils % 0.8; Eosinophils % 0.4; HCT 37.3 % (36.0-46.0); HGB 11.7 g/dL (11.2-15.7); Lymphocytes % 38.3; MCHC 31.4 % (32.0-36.0); MCV 80 fL (80-95); MPV 10.9 fL (8.0-11.0); Monocytes % 8.5; Platelet Count 299 10^3/uL (130-400); RBC 4.68 10^6/uL (3.93-5.22); RDW 13.8 % (11.7-14.6); RDW-SD 39.8 fL; WBC 4.94 10^3/uL (4.4-10.8)
[2023-06-12 07:54] LABS: ESR 29 mm/hr (0-30)
[2023-06-12 08:06] LABS: C-Reactive Protein 1.41 mg/dL (<or=0.5)
== END 2023-06-12 04:49 | disposition home or self-care (01) ==
LOC: LBO 04:48
PROVIDERS: PCP Nurse Practitioner Family; Visit Provider Physician Assistant
DX: M17.12 Unilateral primary osteoarthritis, left knee (principal)
CPT/HCPCS: 85652; 85025; 86140

== ENCOUNTER → 2023-07-02 09:47 | Outpatient (BNVA) | payer OTHER, MEDICAID, SELFPAY | PROVIDERS: PCP Nurse Practitioner Family; Referring Provider Nurse Practitioner Family; Visit Provider Student in an Organized Health Care Education/Training Program | DX: M17.12 Unilateral primary osteoarthritis, left knee (principal) | CPT/HCPCS: 20610; J1030 ==

== ENCOUNTER 2023-07-11 15:56 | Outpatient (REF) | payer OTHER, MEDICAID, SELFPAY | END 2023-07-11 15:57 | disposition home or self-care (01) | LOC: LBN 15:56 | PROVIDERS: PCP Nurse Practitioner Family; Visit Provider Obstetrics & Gynecology | DX: N94.9 Unspecified condition associated with female genital organs and menstrual cycle (principal) | CPT/HCPCS: 87480; 87510; 87660 ==

== ENCOUNTER 2023-08-09 14:53 | Outpatient (REF) | payer OTHER, MEDICAID, SELFPAY | END 2023-08-09 14:54 | disposition home or self-care (01) | LOC: LBN 14:53 | PROVIDERS: PCP Nurse Practitioner Family; Visit Provider Obstetrics & Gynecology | DX: N94.89 Other specified conditions associated with female genital organs and menstrual cycle (principal); N89.8 Other specified noninflammatory disorders of vagina | CPT/HCPCS: 87480; 87510; 87660 ==

== ENCOUNTER → 2023-09-03 00:17 | Outpatient (CLI) | payer OTHER, MEDICAID, SELFPAY ==
--- NOTE | 2023-09-03 07:51 | DI.US_ITS ---
Exam(s) US PELVIS TRANSVAGINAL EXAM: US PELVIS TRANSVAGINAL CLINICAL HISTORY: POSTMENOPAUSAL BLEEDING,N95.0 TECHNIQUE: Transabdominal and transvaginal imaging was performed using standard protocol. COMPARISON: CT CT ABDOMEN PELVIS WO from 10/10/2021 FINDINGS: The transabdominal images are limited by lack of bladder distention and patient body habitus. UTERUS: Anteverted. 8.3 x 4 x 2 x 4.7 cm Endometrium: 4 mm, suboptimally visualized. Myometrium: Heterogeneous Cervix: Unremarkable. OVARIES: Right: Cyst or mass: 17 x 14 x 14 millimeter simple cyst right ovary Left: Cyst or mass: Not visualized DOPPLER: Color: Symmetric and uniform flow to both ovaries. No hyperemia. CUL-DE-SAC: Free fluid: None. IMPRESSION: 1. Heterogeneous myometrium. Endometrium appears within normal limits. 2. 1.7 cm simple cyst right ovary. Left ovary not visualized. DATA REPOSITORY:
== END ==
LOC: DI 00:18
PROVIDERS: PCP Nurse Practitioner Family; Visit Provider Obstetrics & Gynecology
DX: N95.0 Postmenopausal bleeding (principal)
CPT/HCPCS: 76830; 76856

== ENCOUNTER 2023-09-03 14:10 | Emergency (ER) | payer OTHER, MEDICAID, SELFPAY ==
[2023-09-03 14:12] VITALS: BP 157/92; PULSE 94; RESP 16; TEMP 36.8; O2SAT 99
--- NOTE | 2023-09-03 14:30 | ED.GENADUL_ITS ---
Discharge Plan Disposition Patient Disposition: Home Discharge Details Clinical Impression: Acute knee pain, Ankle pain Primary Care Provider: Vasu Brian ED Provider: Stacy Dorantes Home Meds and New Rx's Prescriptions: Continued venlafaxine [Effexor XR] 150 mg capsule,extended release 24hr 300 mg PO DAILY risperidone [Risperdal] 0.5 mg tablet 0.5 mg PO DAILY golo capsule 1 cap PO TID clobetasol 0.05 % ointment 1 applic topical DAILY 14 Days Qty: 60 2RF Rx Instructions: Apply q am to the entire vulvar area: the labia, especially in the folds, around the vaginal opening, the perineum (the area between the vagina and anus) and around the anus. Use prn sxms carbamazepine 200 mg capsule, ER multiphase 12 hr 400 mg PO BID omeprazole magnesium 20 mg tablet,delayed release (DR/EC) 20 mg PO DAILY Qty: 90 3RF Patient Comments: pt. unsure if she took today 02/22/23 hydrochlorothiazide 12.5 mg tablet 12.5 mg PO DAILY AM Qty: 90 3RF levothyroxine 100 mcg tablet 100 mcg PO DAILY Qty: 90 3RF Rx Instructions: Administer in the morning on an empty stomach, at least 30-60 minutes before food ibuprofen 800 mg tablet 800 mg PO Q8H PRN (Reason: pain) Qty: 90 2RF metronidazole 500 mg tablet 500 mg PO BID Qty: 14 0RF Rx Instructions: Take with food acetaminophen 500 mg tablet 500 mg PO Q6H PRN (Reason: pain) Qty: 60 2RF Discharge Instructions Additional Instructions: Please call your primary care provider first thing in the morning to schedule follow-up appointment in the next week or two to have your knee and ankle reassessed if they continue to give you trouble I recommend that you rest, ice, elevate, and use Scooby bandage as needed for compression/support. You may use Tylenol as needed for discomfort (650 mg every 8 hours as needed for discomfort). Wear supportive shoes. Referrals: Vasu Brian, [employer] [Primary Care Provider] - HPI General Date/Time Provider Initiated Documentation: 09/03/23 14:22 . HPI Narrative: Erin is a 52-year-old female who presents to the emergency department today for evaluation of left knee and ankle pain after tripping and falling on a rug a nd diagnostic imaging. She reports this occurred around 130 today. She reports that her flip-flop got caught on the rug, causing her to land right on her left knee. She has been able to ambulate, but reports that the lateral aspect of her ankle and the back of her right knee are painful. She is approximately 7 months status post partial knee replacement on that side. She reports that she rece ntly saw Dr. Barriga, was told everything looked good. No head injury or other injuries reported. Related Data Home Medications Medication Instructions Recorded Confirmed venlafaxine 150 mg 300 mg PO DAILY 04/15/19 09/03/23 capsule,extended release 24 hr (Effexor XR) carbamazepine 200 mg 400 mg PO BID 02/25/20 09/03/23 capsule,extended release [id number] risperidone 0.5 mg tablet 0.5 mg PO DAILY 01/19/22 09/03/23 (Risperdal) acetaminophen 500 mg tablet 500 mg PO Q6H PRN pain #60 tabs 04/03/22 09/03/23 omeprazole magnesium 20 mg 20 mg PO DAILY #90 tabs 12/26/22 09/03/23 tablet,delayed release golo 1 cap PO TID 12/27/22 09/03/23 hydrochlorothiazide 12.5 mg tablet 12.5 mg PO DAILY AM #90 tab-caps 01/23/23 09/03/23 levothyroxine 100 mcg tablet 100 mcg PO DAILY #90 tab-caps 02/18/23 09/03/23 clobetasol 0.05 % topical ointment 1 applic topical DAILY 2 weeks #60 07/11/23 09/03/23 grams ibuprofen 800 mg tablet 800 mg PO Q8H PRN pain #90 tabs 08/07/23 09/03/23 metronidazole 500 mg tablet 500 mg PO BID #14 tabs 08/09/23 09/03/23 Previous Rx's Medication Instructions Recorded acetaminophen 500 mg tablet 500 mg PO Q6H PRN pain #60 tabs 04/03/22 omeprazole magnesium 20 mg 20 mg PO DAILY #90 tabs 12/26/22 tablet,delayed release hydrochlorothiazide 12.5 mg tablet 12.5 mg PO DAILY AM #90 tab-caps 01/23/23 levothyroxine 100 mcg tablet 100 mcg PO DAILY #90 tab-caps 02/18/23 clobetasol 0.05 % topical ointment 1 applic topical DAILY 2 weeks #60 07/11/23 grams ibuprofen 800 mg tablet 800 mg PO Q8H PRN pain #90 tabs 08/07/23 metronidazole 500 mg tablet 500 mg PO BID #14 tabs 08/09/23 Allergies Allergy/AdvReac Type Severity Reaction Status Date / Time gabapentin AdvReac Mild makes her Verified 09/03/23 14:16 feel drunk sumatriptan [From Imitrex] AdvReac Other (See Verified 09/03/23 14:16 Comment) General Stated Complaint: Orthopedic PEACE: 4 Review of Systems Narrative: see HPI Exam Const General: cooperative, healthy appearing, comfortable and no acute distress Skin General skin exam: no rashes or lesions noted Trauma: no lacerations or abrasions Wounds: no wounds Neuro General: no focal motor deficits Motor: muscle tone normal throughout Extrem Left lower extremity: full ROM, knee Details: tenderness Location: of the distal upper leg and ankle Details: tenderness Location: of the lateral malleolus and no edema; no warmth, no abrasions, no lacerations, no ecchymosis, no crepitus, no foreign bodies and no penetrating wound; no cyanosis, no edema and joint enlargement noted Course Vital Signs Vital signs: Vital Signs Temperature 36.8 C 09/03/23 14:12 Pulse 94 H 09/03/23 14:12 Respiratory Rate 16 09/03/23 14:12 Blood Pressure 157/92 H 09/03/23 14:12 Pulse Oximetry 99 09/03/23 14:12 Temperature 36.8 C 09/03/23 14:12 Pulse 94 H 09/03/23 14:12 Respiratory Rate 16 09/03/23 14:12 Respiratory Effort Normal 09/03/23 14:15 Blood Pressure 157/92 H 09/03/23 14:12 Blood Pressure Position Sitting 09/03/23 14:12 Pulse Oximetry 99 09/03/23 14:12 Oxygen Delivery Method Room Air 09/03/23 14:12 Oxygen Flow Rate 0 09/03/23 14:12 Pain Level 8 09/03/23 14:19 Medical Decision Making Erin is a 52-year-old female who presents to the emergency department today for evaluation of left knee and ankle pain after tripping and falling on a rug and diagnostic imaging. She reports this occurred around 130 today. She reports that her flip-flop got caught on the rug, causing her to land right on her left knee. She has been able to ambulate, but reports that the lateral aspect of her ankle and the back of her right knee are painful. She is approximately 7 months status post partial knee replacement on that side. She reports that she recently saw Dr. Barriga, was told everything looked good. No head injury or other injuries reported. Physical exam very reassuring. Faint abrasion noted to left knee. Slightly decreased range of motion to knee, tenderness to palpation to the posterior thigh and knee. No obvious deformity or point tenderness. Tenderness with palpation along lateral malleolus of left ankle. She is able to fully flex and point the foot. Sensation intact distally. DDx includes was not limited to fracture, sprain/strain, hardware dislodgment, other soft tissue /musculoskeletal injury I independently interpreted the following tests: Left knee and ankle x-rays unremarkable, no hardware malfunction noted. This was confirmed by radiologist. Scooby bandage applied for comfort to knee and ankle. Recommend use of RICE, supportive shoes, and Tylenol as needed. Follow-up with PCP as needed. Imaging Data Radiologic Study: Radiologist's impression: Exam(s) XR KNEE LT 4V AP,LAT,DIANE,PAT EXAM: XR KNEE LT 4V AP,LAT,DIANE,PAT CLINICAL HISTORY: fall. TECHNIQUE: 2D digital imaging was performed. Three views. COMPARISON: CR XR KNEE LT 2V AP,LAT from 06/05/[address] LOWER EXTREMITY LT WO from 06/12/2023 CR XR KNEE LT 2V AP,LAT from 09/03/2023 FINDINGS: BONES: No acute fracture is present. No bony destructive lesion is seen. Stable appearance medial femoral tibial joint space prosthesis. JOINTS: The knee is normally aligned. No joint effusion is seen. SOFT TISSUE: Anterior edema. IMPRESSION: No evidence of fracture. No change in medial joint space prosthesis. Radiologic Study #2: Radiologist's impression: Exam(s) XR ANKLE LT COMPLETE EXAM: XR ANKLE LT COMPLETE CLINICAL HISTORY: pain s/p fall TECHNIQUE: 2D digital imaging was performed. Three views. COMPARISON: CR XR HEEL RT OS CALCIS from 06/01/2019 FINDINGS: BONES: No acute fracture is present. No bony destructive lesion is seen. Heel spurs. JOINTS:The ankle mortise is normally aligned. SOFT TISSUE: Normal. IMPRESSION: Unremarkable radiographs of the left ankle. Quality:SDOH Health Related Social Needs: No Data to Display PFSH All Active Problems (Updated 09/03/23 @ 15:50 by Stacy Noble) Ankle pain (Acute) Acute knee pain (Acute) Postmenopausal bleeding (Acute) Lichen sclerosus (Acute) Arthritis of knee, left (Acute) s/p Left medial unicondylar knee replacement 02/22/23 Chronic constipation (Acute) Bipolar disorder, unspecified (Acute) Hypertension (Chronic) Resolved s/p bariatric surgery & weight loss; re-started med 02/2020 Hypothyroidism (Chronic) Obesity (Chronic) Hyperlipidemia, unspecified (Acute) 09/2019 labs: 10-year ASCVD risk = ~0.7% Gastroesophageal reflux disease (Chronic) Constipation (Acute) Internal derangement of right knee (Acute) Complex tear of medial meniscus of right knee (Acute) Medical History (Updated 09/03/23 @ 15:50 by Stacy Noble) Bacterial vaginitis tx'd metronidazole PO 07/15 Acute medial meniscus tear of left knee surgically repaired COVID-19 Onset 06/27/22 Left knee pain Cystitis Scapulothoracic bursitis of both shoulders Tendinitis of long head of biceps brachii of left shoulder Impingement syndrome of left shoulder Social phobia, unspecified Moderate, NKHS Heel spur Chronic pain Impingement syndrome of right shoulder Bursitis of right shoulder Tendonitis of long head of biceps brachii of right shoulder Calcific tendinitis of right shoulder Pain, joint, hip, left Back pain Cryptogenic sensory polyneuropathy Legs Urinary incontinence Insomnia Plantar fasciitis Vitamin D deficiency, unspecified Sleep apnea Pt reports she had a negative sleep study --> ruled-out Polycystic ovarian disease Spondylosis without myelopathy or radiculopathy, cervical region Cervicalgia Surgical History H/O arthroscopic knee surgery right Status post medial meniscus repair of left knee 10/2021 History of bariatric surgery S/P removal of ovarian cyst H/O exploratory laparotomy 1987 S/P tubal ligation 1992 S/P cholecystectomy 2000 S/P endoscopy 2012 H/O arthroscopy of knee 2000 S/P gastric bypass Laparoscopic sleeve Family History Mother Alcohol abuse Depression Diabetes Hypertension Father Alcohol abuse Cancer Heart disease Hypertension Sister Alcohol abuse Depression Hypertension Substance abuse Brother Alcohol abuse Substance abuse Brother No problems noted. Brother Depression Son No problems noted. Daughter Alcohol abuse Depression Substance abuse Social History Smoking/Tobacco Use Status: Former Tobacco Use tobacco type: cigarettes Quit Date: 04/08/12 Pack-years: 25 Tobacco: How many years used: 25 Second Hand Exposure: Yes Smoking risk assessment performed?: Yes Alcohol Intake: current Alcohol Intake frequency: holidays/special occasions only Alcohol type: wine Drug use: Never Substance use type: does not use Counseling given: No Details: alcohol: two years Adopted: Yes Caregiver/Support person: No Foster care: Yes Household members: friend(s) Housing: apartment Number of Children: 2 Communication Needs: Hard of Hearing Education Level: high school Details: GED & Associate's degree in business Do you need help understanding health information?: Never current occupation: Disabled Pets and animals: Yes Pets and animals: cat(s) and dog(s) Sexually active: Yes Do you think of yourself as: straight/heterosexual Current gender identity: female What is your relationship status?: How often do you talk on the phone with friends or family?: three or more times per week How often do you get together with friends or relatives?: once per week How often do you attend pentecostalism or scientology services?: 1-3 times per year Do you belong to any clubs or organized social groups?: no Panel score (0-1 are the most socially isolated patients): 1 What type of physical activity do you participate in: regular exercise Duration: < 15 minutes/day Frequency: 1-2 times per week Renea/Spiritism: Moravian Special renea needs: No Seatbelt use: always Helmet use: Yes Helmet use: always Drive intox or ride w/intox street flusher driver: No Do you feel safe at home: Yes Do you feel safe in your relationship?: Yes Additional Social history: unable to assess personally Female Reproductive History Menstrual control method: permanent sterilization History History 3 Para 2 Hx # Term Pregnancies Multiple births Hx # Pregnancies Ectopic pregnancies AB induced Hx Number of Living Children AB spontaneous
--- NOTE | 2023-09-03 15:03 | DI.RAD_ITS ---
Exam(s) XR ANKLE LT COMPLETE EXAM: XR ANKLE LT COMPLETE CLINICAL HISTORY: pain s/p fall TECHNIQUE: 2D digital imaging was performed. Three views. COMPARISON: CR XR HEEL RT OS CALCIS from 06/01/2019 FINDINGS: BONES: No acute fracture is present. No bony destructive lesion is seen. Heel spurs. JOINTS:The ankle mortise is normally aligned. SOFT TISSUE: Normal. IMPRESSION: Unremarkable radiographs of the left ankle. DATA REPOSITORY: RADIATION DOSE DELIVERED:
--- NOTE | 2023-09-03 15:03 | DI.RAD_ITS ---
Exam(s) XR KNEE LT 4V AP,LAT,DIANE,PAT EXAM: XR KNEE LT 4V AP,LAT,DIANE,PAT CLINICAL HISTORY: fall. TECHNIQUE: 2D digital imaging was performed. Three views. COMPARISON: CR XR KNEE LT 2V AP,LAT from 06/05/[address] LOWER EXTREMITY LT WO from 06/12/2023 CR XR KNEE LT 2V AP,LAT from 09/03/2023 FINDINGS: BONES: No acute fracture is present. No bony destructive lesion is seen. Stable appearance medial fe moral tibial joint space prosthesis. JOINTS: The knee is normally aligned. No joint effusion is seen. SOFT TISSUE: Anterior edema. IMPRESSION: No evidence of fracture. No change in medial joint space prosthesis. DATA REPOSITORY: RADIATION DOSE DELIVERED:
[2023-09-03] MEDS: Acetaminophen 325 MG TAB 650 MG PO (15:05)
== END 2023-09-03 16:02 | disposition home or self-care (01) ==
PROVIDERS: Emergency Provider Nurse Practitioner Family; PCP Nurse Practitioner Family
DX: M25.562 Pain in left knee (principal); M25.572 Pain in left ankle and joints of left foot; Z98.84 Bariatric surgery status; Z96.652 Presence of left artificial knee joint; W01.0XXA Fall on same level from slipping, tripping and stumbling without subsequent striking against object, initial encounter; Y93.01 Activity, walking, marching and hiking; Y92.238 Other place in hospital as the place of occurrence of the external cause
CPT/HCPCS: 99283; 73564; 73610

== ENCOUNTER 2023-09-03 15:38 | Outpatient (CLI) | payer OTHER, MEDICAID, SELFPAY ==
--- NOTE | 2023-09-03 08:45 | DI.RAD_ITS ---
Exam(s) XR KNEE LT 2V AP,LAT EXAM: XR KNEE LT 2V AP,LAT CLINICAL HISTORY: F/U LEFT UKA. TECHNIQUE: 2D digital imaging was performed. Two images were obtained. AP and lateral views were ob tained. COMPARISON: CR XR KNEE LT 2V AP,LAT from 06/05/2023 FINDINGS: BONES: There are stable post operative changes of a partial left knee replacement present. No fractu re or dislocation. JOINTS: The orthopedic hardware is in good position. No evidence of hardware loosening. SOFT TISSUE: Normal. IMPRESSION: Stable partial left knee replacement. DATA REPOSITORY: RADIATION DOSE DELIVERED:
== END 2023-09-03 15:39 | disposition home or self-care (01) ==
LOC: DIORS 15:38
PROVIDERS: PCP Nurse Practitioner Family; Visit Provider Student in an Organized Health Care Education/Training Program
DX: Z47.1 Aftercare following joint replacement surgery (principal); Z96.652 Presence of left artificial knee joint; M17.12 Unilateral primary osteoarthritis, left knee
CPT/HCPCS: 99213; 73560

== ENCOUNTER 2023-09-15 15:50 | Emergency (ER) | payer OTHER, MEDICAID, SELFPAY ==
[2023-09-15 15:52] VITALS: BP 133/82; PULSE 87; RESP 15; TEMP 36.1; O2SAT 99
--- NOTE | 2023-09-15 16:24 | W.ED.GENAD ---
Discharge Plan Disposition Patient Disposition: Home Discharge Details Clinical Impression: Dysuria Primary Care Provider: Vasu Brian ED Provider: Stacy Dorantes Home Meds and New Rx's Prescriptions: Continued venlafaxine [Effexor XR] 150 mg capsule,extended release 24hr 300 mg PO DAILY risperidone [Risperdal] 0.5 mg tablet 0.5 mg PO DAILY golo capsule 1 cap PO TID nystatin-triamcinolone 100,000-0.1 unit/g-% cream 1 applic topical BID Qty: 30 1RF clobetasol 0.05 % ointment 1 applic topical DAILY 14 Days Qty: 60 2RF Rx Instructions: Apply q am to the entire vulvar area: the labia, especially in the folds, around the vaginal opening, the perineum (the area between the vagina and anus) and around the anus. Use prn sxms carbamazepine 200 mg capsule, ER multiphase 12 hr 400 mg PO BID omeprazole magnesium 20 mg tablet,delayed release (DR/EC) 20 mg PO DAILY Qty: 90 3RF Patient Comments: pt. unsure if she took today 02/22/23 hydrochlorothiazide 12.5 mg tablet 12.5 mg PO DAILY AM Qty: 90 3RF levothyroxine 100 mcg tablet 100 mcg PO DAILY Qty: 90 3RF Rx Instructions: Administer in the morning on an empty stomach, at least 30-60 minutes before food ibuprofen 800 mg tablet 800 mg PO Q8H PRN (Reason: pain) Qty: 90 2RF metronidazole 500 mg tablet 500 mg PO BID Qty: 14 0RF Rx Instructions: Take with food acetaminophen 500 mg tablet 500 mg PO Q6H PRN (Reason: pain) Qty: 60 2RF Discharge Instructions Instructions: Dysuria (ED) Additional Instructions: Please follow-up with your gynecology team first thing Saturday morning to schedule follow-up appointment. I recommend you continue using the recommendations suggested by her pit steward for management of discomfort in your genital area. Be sure to stay well-hydrated, drinking plenty of water and fluids throughout the day. Return to emergency care if develop new fever/chills accompanying discomfort with urination, nausea/vomiting, blood in your urine, inability to urinate, new abdominal pain, or if you are very worried and need to be rechecked again immediately Referrals: [facility] [Provider Group] HPI General Date/Time Provider Initiated Documentation: 09/15/23 15:52. HPI Narrative: Erin is a 52-year-old female who is currently under the care of gynecology for vaginal infections, including yeast infection who presents to the emergency department today for concern that she may have a UTI. She reports that today around 2 PM she urinated and had a strong burning sensation when she urinated. This is different than the discomfort she has had with urination due to vaginal infection that has been chronic for the last 2 months. She denies associated fever/chills, abdominal pain, nausea/vomiting, change in bowel function, unusual vaginal discharge, trauma to the genital area, unusual odor or color to urine, blood in urine. She has had urinary tract infections in the remote past, none recently. She is currently being treated for yeast infection. Related Data Home Medications Medication Instructions Recorded Confirmed venlafaxine 150 mg 300 mg PO DAILY 04/15/19 09/13/23 capsule,extended release 24 hr (Effexor XR) carbamazepine 200 mg 400 mg PO BID 02/25/20 09/13/23 capsule,extended release [id number] risperidone 0.5 mg tablet 0.5 mg PO DAILY 01/19/22 09/13/23 (Risperdal) acetaminophen 500 mg tablet 500 mg PO Q6H PRN pain #60 tabs 04/03/22 09/13/23 omeprazole magnesium 20 mg 20 mg PO DAILY #90 tabs 12/26/22 09/13/23 tablet,delayed release golo 1 cap PO TID 12/27/22 09/13/23 hydrochlorothiazide 12.5 mg tablet 12.5 mg PO DAILY AM #90 tab-caps 01/23/23 09/13/23 levothyroxine 100 mcg tablet 100 mcg PO DAILY #90 tab-caps 02/18/23 09/13/23 clobetasol 0.05 % topical ointment 1 applic topical DAILY 2 weeks #60 07/11/23 09/13/23 grams ibuprofen 800 mg tablet 800 mg PO Q8H PRN pain #90 tabs 08/07/23 09/13/23 metronidazole 500 mg tablet 500 mg PO BID #14 tabs 08/09/23 09/13/23 nystatin-triamcinolone 100,000 1 applic topical BID #30 grams 09/13/23 09/13/23 unit/g-0.1 % topical cream Previous Rx's Medication Instructions Recorded acetaminophen 500 mg tablet 500 mg PO Q6H PRN pain #60 tabs 04/03/22 omeprazole magnesium 20 mg 20 mg PO DAILY #90 tabs 12/26/22 tablet,delayed release hydrochlorothiazide 12.5 mg tablet 12.5 mg PO DAILY AM #90 tab-caps 01/23/23 levothyroxine 100 mcg tablet 100 mcg PO DAILY #90 tab-caps 02/18/23 clobetasol 0.05 % topical ointment 1 applic topical DAILY 2 weeks #60 07/11/23 grams ibuprofen 800 mg tablet 800 mg PO Q8H PRN pain #90 tabs 08/07/23 metronidazole 500 mg tablet 500 mg PO BID #14 tabs 08/09/23 nystatin-triamcinolone 100,000 1 applic topical BID #30 grams 09/13/23 unit/g-0.1 % topical cream Allergies Allergy/AdvReac Type Severity Reaction Status Date / Time gabapentin AdvReac Mild makes her Verified 09/04/23 09:48 feel drunk sumatriptan [From Imitrex] AdvReac Other (See Verified 09/04/23 09:48 Comment) General Stated Complaint: Urinary PEACE: 4 Review of Systems Narrative: see HPI Exam Const General: cooperative, healthy appearing, comfortable and no acute distress GI Inspection: normal to inspection and non-distended Palpation: soft, not firm and nontender General: No CVA tenderness Course Vital Signs Vital signs: Vital Signs Temperature 36.1 C L 09/15/23 15:52 Pulse 87 09/15/23 15:52 Respiratory Rate 15 09/15/23 15:52 Blood Pressure 133/82 09/15/23 15:52 Pulse Oximetry 99 09/15/23 15:52 Temperature 36.1 C L 09/15/23 15:52 Temperature Source Tympanic 09/15/23 15:52 Pulse 87 09/15/23 15:52 Respiratory Rate 15 09/15/23 15:52 Blood Pressure 133/82 09/15/23 15:52 Blood Pressure Position Sitting 09/15/23 15:52 Pulse Oximetry 99 09/15/23 15:52 Oxygen Delivery Method Room Air 09/15/23 15:52 Oxygen Flow Rate 0 09/15/23 15:52 Pain Level 4 09/15/23 15:52 Medical Decision Making Erin is a 52-year-old female who is currently under the care of gynecology for vaginal infections, including yeast infection who presents to the emergency department today for concern that she may have a UTI. She reports that today around 2 PM she urinated and had a strong burning sensation when she urinated. This is different than the discomfort she has had with urination due to vaginal infection that has been chronic for the last 2 months. She denies associated fever/chills, abdominal pain, nausea/vomiting, change in bowel function, unusual vaginal discharge, trauma to the genital area, unusual odor or color to urine, blood in urine. She has had urinary tract infections in the remote past, none recently. She is currently being treated for yeast infection. Physical exam very reassuring. Patient is alert and interactive, no acute distress. Abdomen is soft, nondistended, nontender to palpation. No CVA tenderness. DDx includes was not limited to: UTI, interstitial cystitis, vaginal or other genital irritation. No red flags concerning for systemic infection or extension of UTI such as pyelonephritis requiring diagnostic imaging or bloodwork. I independently interpreted the following tests: Urinalysis reassuring, urine is noted to be concentrated, specific gravity greater than 1030. Trace leuks. Microscopy negative. Urinalysis not consistent with UTI. Likely interstitial cystitis or other inflammatory process associated with current gynecologic issues. Erin does report that she has had dysuria while here in the emergency department providing her urine sample. Reviewed discharge instructions, including importance of good hydration, follow-up with gynecology, and red flags indicating need for return for emergency care. She is agreeable with plan of care. Quality:SDOH Health Related Social Needs: No Data to Display PFSH All Active Problems (Updated 09/15/23 @ 17:49 by Stacy Noble) Dysuria (Acute) Ankle pain (Acute) Acute knee pain (Acute) Lichen sclerosus (Acute) Arthritis of knee, left (Acute) s/p Left medial unicondylar knee replacement 02/22/23 Chronic constipation (Acute) Bipolar disorder, unspecified (Acute) Hypertension (Chronic) Resolved s/p bariatric surgery & weight loss; re-started med 02/2020 Hypothyroidism (Chronic) Obesity (Chronic) Hyperlipidemia, unspecified (Acute) 09/2019 labs: 10-year ASCVD risk = ~0.7% Gastroesophageal reflux disease (Chronic) Constipation (Acute) Internal derangement of right knee (Acute) Complex tear of medial meniscus of right knee (Acute) Medical History Postmenopausal bleeding spotting x4 days August 2023 - sono with thin endo stript. Needs endo bx if recurrent bleeding. Bacterial vaginitis tx'd metronidazole PO 07/15 Acute medial meniscus tear of left knee surgically repaired COVID-19 Onset 06/27/22 Left knee pain Cystitis Scapulothoracic bursitis of both shoulders Tendinitis of long head of biceps brachii of left shoulder Impingement syndrome of left shoulder Social phobia, unspecified Moderate, NKHS Heel spur Chronic pain Impingement syndrome of right shoulder Bursitis of right shoulder Tendonitis of long head of biceps brachii of right shoulder Calcific tendinitis of right shoulder Pain, joint, hip, left Back pain Cryptogenic sensory polyneuropathy Legs Urinary incontinence Insomnia Plantar fasciitis Vitamin D deficiency, unspecified Sleep apnea Pt reports she had a negative sleep study --> ruled-out Polycystic ovarian disease Spondylosis without myelopathy or radiculopathy, cervical region Cervicalgia Surgical History H/O arthroscopic knee surgery right Status post medial meniscus repair of left knee 10/2021 History of bariatric surgery S/P removal of ovarian cyst H/O exploratory laparotomy 1987 S/P tubal ligation 1992 S/P cholecystectomy 2000 S/P endoscopy 2012 H/O arthroscopy of knee 2000 S/P gastric bypass Laparoscopic sleeve Family History Mother Alcohol abuse Depression Diabetes Hypertension Father Alcohol abuse Cancer Heart disease Hypertension Sister Alcohol abuse Depression Hypertension Substance abuse Brother Alcohol abuse Substance abuse Brother No problems noted. Brother Depression Son No problems noted. Daughter Alcohol abuse Depression Substance abuse Social History Smoking/Tobacco Use Status: Former Tobacco Use tobacco type: cigarettes Quit Date: 04/08/12 Pack-years: 25 Tobacco: How many years used: 25 Second Hand Exposure: Yes Smoking risk assessment performed?: Yes Alcohol Intake: current Alcohol Intake frequency: holidays/special occasions only Alcohol type: wine Drug use: Never Substance use type: does not use Counseling given: No Details: alcohol: two years Adopted: Yes Caregiver/Support person: No Foster care: Yes Household members: friend(s) Housing: apartment Number of Children: 2 Communication Needs: Hard of Hearing Education Level: high school Details: GED & Associate's degree in business Do you need help understanding health information?: Never current occupation: Disabled Pets and animals: Yes Pets and animals: cat(s) and dog(s) Sexually active: Yes Do you think of yourself as: straight/heterosexual Current gender identity: female What is your relationship status?: How often do you talk on the phone with friends or family?: three or more times per week How often do you get together with friends or relatives?: once per week How often do you attend mandaeism or druze services?: 1-3 times per year Do you belong to any clubs or organized social groups?: no Panel score (0-1 are the most socially isolated patients): 1 What type of physical activity do you participate in: regular exercise Duration: < 15 minutes/day Frequency: 1-2 times per week Renea/Pentecostal: Zoroastrian Special renea needs: No Seatbelt use: always Helmet use: Yes Helmet use: always Drive intox or ride w/intox 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
[2023-09-15 16:44] VITALS: BP 133/82; PULSE 87; RESP 15; TEMP 36.1; O2SAT 99
[2023-09-15 17:09] LABS: Bilirubin Negative (Negative); Blood Negative (Negative); Clarity Sl Cloudy (Clear); Glucose Negative (Negative); Ketones Negative (Negative); Leukocyte Esterase Trace (Negative); Nitrite Negative (Negative); Specific Gravity >= 1.030 (1.005-1.025); Urobilinogen 0.2 mg/dL (Up to 0.2); pH 5.5 (5-8)
[2023-09-15 17:16] LABS: Bacteria Rare HPF (Negative); C & S Indicated? No; Casts Negative LPF (Negative); Crystals Negative HPF (Negative); Epithelial Cells Few HPF (Negative); Mucus Negative (Negative); RBC Negative HPF (0-2)
--- NOTE | 2023-09-15 17:52 | NUR.NOTE ---
Referral faxed to [facility] for dysuria in 1 to 2 weeks. Nursing Note:
[2023-09-15 17:55] VITALS: BP 133/82; PULSE 87; RESP 15; TEMP 36.1; O2SAT 99
== END 2023-09-15 17:55 | disposition home or self-care (01) ==
PROVIDERS: Emergency Provider Nurse Practitioner Family; PCP Nurse Practitioner Family
DX: R30.0 Dysuria (principal); I10 Essential (primary) hypertension; E78.5 Hyperlipidemia, unspecified; Z98.84 Bariatric surgery status; Z87.891 Personal history of nicotine dependence
CPT/HCPCS: 99283; 81003; 81015

== ENCOUNTER 2023-10-15 13:49 | Outpatient (REF) | payer OTHER, MEDICAID, SELFPAY ==
--- NOTE | 2023-10-15 13:25 | ENDOMET_PTH ---
PATIENT: Erin Whitmore LOC: [place] U#:[id number] AGE/SX: 52/F ROOM: RE10/15/[address]: Michaela Tijerina MD : 1970 BED: DIS: 10/15/2023 SPEC #: [id number] RECD: 10/15/23 17:37 STATUS: EMIL REAndi #: [id number] MILANA: 10/15/23 13:[address]: Michaela Tijerina DEPT: Surgical Specimen RECD BY: Martha Stern ENTERED: 10/15/23 17:38 SP TYPE: Endomet OTHR DR: Vasu Brian, JASON Tissues: 1 - ENDOMETRIUM BX/TERA Procedures: GROSS AND MICRO LEVEL 4 Comments: [id number]
== END 2023-10-15 13:50 | disposition home or self-care (01) ==
LOC: LBN 13:49
PROVIDERS: PCP Nurse Practitioner Family; Visit Provider Obstetrics & Gynecology
DX: N95.0 Postmenopausal bleeding (principal)
CPT/HCPCS: 88305

== ENCOUNTER 2023-12-30 09:35 | Outpatient (CLI) | payer OTHER, MEDICAID, SELFPAY ==
[2023-12-30 09:22] LABS: Hemoglobin A1C 6.4 % (<5.7)
[2023-12-30 10:01] LABS: CREATININE 0.9 mg/dL (0.55-1.02); Calculated LDL 127 mg/dL (<100); Cholesterol 230 mg/dL (<200); Estimated GFR 76.44 (mL/min/1.73m2); HDL Cholesterol 90 mg/dL (40-60); Potassium 3.3 mmol/L (3.5-5.1); TSH (W/Ref FT4) 0.77 uIU/mL (0.36-3.74); Triglyceride 67 mg/dL (<150)
== END 2023-12-30 09:36 | disposition home or self-care (01) ==
LOC: LBO 09:36
PROVIDERS: PCP Nurse Practitioner Family; Visit Provider Nurse Practitioner Family
DX: E03.9 Hypothyroidism, unspecified (principal); I10 Essential (primary) hypertension; E78.5 Hyperlipidemia, unspecified; Z13.220 Encounter for screening for lipoid disorders; Z13.1 Encounter for screening for diabetes mellitus
CPT/HCPCS: 36415; 80061; 82565; 83036; 84132; 84443

== ENCOUNTER 2024-02-17 01:13 | Emergency (ER) | payer OTHER, MEDICAID, SELFPAY ==
[2024-02-17] VITALS (12 sets, daily range): BP systolic 111–122; BP diastolic 43–83; PULSE 58–75; RESP 11–18; TEMP 36.2; O2SAT 95–99
--- NOTE | 2024-02-17 01:00 | RT.EKG_ITS ---
APPROVED REPORT Exam: Resting ECG Reason for Exam: chest pain Patient Location: E HR:74 bpm ECG Measurements Heart Rate 74 AXIS CO 165 P 63 QRSd 85 QRS 40 QT 392 T 66 QTc 436 Conclusion Sinus rhythm...normal P axis, V-rate 60- 99 Normal Electrocardiogram
--- NOTE | 2024-02-17 01:14 | ED.GENADUL_ITS ---
Discharge Plan Disposition Patient Disposition: Home Condition: Good Discharge Details Clinical Impression: Atypical chest pain Primary Care Provider: Vasu Brian ED Provider: Federico Paul [facility] New Rx's Prescriptions: Continued venlafaxine [Effexor XR] 150 mg capsule,extended release 24hr 300 mg PO DAILY risperidone [Risperdal] 0.5 mg tablet 0.5 mg PO DAILY golo capsule 1 cap PO TID carbamazepine 200 mg capsule, ER multiphase 12 hr 400 mg PO BID hydrochlorothiazide 12.5 mg tablet 12.5 mg PO DAILY AM Qty: 90 3RF ibuprofen 800 mg tablet 800 mg PO Q8H PRN (Reason: pain) Qty: 90 2RF levothyroxine 100 mcg tablet 100 mcg PO DAILY Qty: 90 3RF Rx Instructions: Administer in the morning on an empty stomach, at least 30-60 minutes before food clobetasol 0.05 % ointment 1 applic topical DAILY 14 Days Qty: 60 2RF Rx Instructions: Apply q am to the entire vulvar area: the labia, especially in the folds, around the vaginal opening, the perineum (the area between the vagina and anus) and around the anus. Use prn sxms omeprazole magnesium 20 mg tablet,delayed release (DR/EC) 20 mg PO DAILY Qty: 90 3RF Patient Comments: pt. unsure if she took today 02/22/23 acetaminophen 500 mg tablet 500 mg PO Q6H PRN (Reason: pain) Qty: 60 2RF Discharge Instructions Instructions: Chest Pain, Adult ED Additional Instructions: You were seen for episodes of chest pain. Your evaluation including exam, EKG, chest x-ray, laboratory studies is reassuring. You may try acetaminophen or ibuprofen to see if this helps with the pain. You should follow-up with your primary care and call for an appointment. Return to ED for any new or worsening pain, increased shortness of breath, neurologic change, other concerns. Referrals: Vasu Brian, PHLEBOTOMY SUPPORT TECH [Primary Care Provider] - [facility] General Mode of arrival: ambulatory . Date/Time Provider Initiated Documentation: 02/17/24 01:14 . Limitations to Documentation: no limitations . Information obtained by: patient and RN notes reviewed . HPI Narrative: Patient presents to ED with complaint of left-sided chest pain. Patient has had this pain intermittently for the last 3 weeks. It is sharp in nature lasts less than a minute but comes and goes. She notices it more at rest than with activity. She has noticed increased shortness of breath with activity. She denies having fever or cough. She denies any diaphoresis, lightheadedness, nausea, abdominal pain, vomiting. She has chronic back and knee pain. She has not noticed leg swelling. She notices general fatigue and less energy than usual. She has not taken anything for the pain nor has she talked to her primary care. She came to the ED tonight because the pain is getting more intense though it is otherwise unchanged in duration or frequency. Related Data Home Medications ?Medication ?Instructions ?Recorded ?Confirmed venlafaxine 150 mg 300 mg PO DAILY 04/15/19 02/17/24 capsule,extended release 24 hr (Effexor XR) carbamazepine 200 mg 400 mg PO BID 02/25/20 02/17/24 capsule,extended release [id number] risperidone 0.5 mg tablet 0.5 mg PO DAILY 01/19/22 02/17/24 (Risperdal) acetaminophen 500 mg tablet 500 mg PO Q6H PRN pain #60 tabs 04/03/22 02/17/24 golo 1 cap PO TID 12/27/22 02/17/24 hydrochlorothiazide 12.5 mg tablet 12.5 mg PO DAILY AM #90 tab-caps 11/28/23 02/17/24 ibuprofen 800 mg tablet 800 mg PO Q8H PRN pain #90 tabs 11/28/23 02/17/24 levothyroxine 100 mcg tablet 100 mcg PO DAILY #90 tab-caps 11/28/23 02/17/24 clobetasol 0.05 % topical ointment 1 applic topical DAILY 2 weeks #60 12/02/23 02/17/24 grams omeprazole magnesium 20 mg 20 mg PO DAILY #90 tabs 12/04/23 02/17/24 tablet,delayed release Previous Rx's ?Medication ?Instructions ?Recorded acetaminophen 500 mg tablet 500 mg PO Q6H PRN pain #60 tabs 04/03/22 hydrochlorothiazide 12.5 mg tablet 12.5 mg PO DAILY AM #90 tab-caps 11/28/23 ibuprofen 800 mg tablet 800 mg PO Q8H PRN pain #90 tabs 11/28/23 levothyroxine 100 mcg tablet 100 mcg PO DAILY #90 tab-caps 11/28/23 clobetasol 0.05 % topical ointment 1 applic topical DAILY 2 weeks #60 12/02/23 grams omeprazole magnesium 20 mg 20 mg PO DAILY #90 tabs 12/04/23 tablet,delayed release Allergies Allergy/AdvReac Type Severity Reaction Status Date / Time gabapentin AdvReac Mild makes her Verified 01/24/24 09:45 feel drunk sumatriptan (From Imitrex) AdvReac Other (See Verified 01/24/24 09:45 Comment) General PEACE: 4 Review of Systems Narrative: Per HPI Exam Narrative Exam Narrative: Const: Obese female in NAD. VS per triage. HEENT: NC/AT. Normal facial exam. Neck: Supple. Trachea midline. Lungs: Normal respiratory effort. Lungs are clear. Cor: RRR without murmur. Good radial pulses. GI: Soft/ND/NT. Neuro: A+O x 3. Normal speech, mentation, gait. Cranial nerves II - XII grossly intact. No gross motor or sensory deficit. Ext: No C/C/E. No calf tenderness. Medical Decision Making Patient presenting to ED with intermittent episodes of sharp chest pain with short duration. She notices decreased energy and increased shortness of breath with exertion. No other associated symptoms. Pain is becoming more intense and may be slightly more frequent but has not changed in duration. She does have multiple risk factors for cardiac disease but has no known cardiac disease. Her EKG per my read is sinus rhythm with normal axis, intervals, ST segments. Description of pain is not consistent with dissection, pneumonia. Unlikely to be PE or pneumothorax and despite cardiac risk factors unlikely to be cardiac in nature. Will obtain laboratory studies including a D-dimer and BNP along with delta troponin. Chest imaging based upon D-dimer result. Patient's laboratory studies are unremarkable with only minor abnormalities of no clinical significance. Her D-dimer is negative. Her BNP is normal. Her troponins are normal and flat. Her chest x-ray per my read shows no acute cardiopulmonary process. At this point, HEART score is low risk. She may follow-up with primary care and should call tomorrow for appointment. Return precautions given. Imaging Data Radiologic Study: Attestation: I personally reviewed and interpreted this imaging study as follows: Imaging: X-Ray My impression: See MDM Lab Data Lab results reviewed: Yes I reviewed the patient's lab results. Lab results narrative: see [facility] ECG Data Attestation: I personally reviewed and interpreted this ECG (s) as follows: Prior ECG tracings: not available for review Interpretation: see EKG/MDM PFSH All Active Problems (Updated 02/17/24 @ 03:11 by Federico Paul MD) Atypical chest pain (Acute) Spondylosis without myelopathy or radiculopathy, cervical region (Acute) Cervicalgia (Acute) Plantar fasciitis (Acute) Insomnia (Acute) Urinary incontinence (Acute) Back pain (Acute) Heel spur (Acute) Impingement syndrome of right shoulder (Acute) Impingement syndrome of left shoulder (Acute) Postmenopausal bleeding (Acute) spotting x4 days August 2023 - sono with thin endo stript. Needs endo bx if recurrent bleeding. Lichen sclerosus (Acute) Arthritis of knee, left (Acute) s/p Left medial unicondylar knee replacement 02/22/23 Obesity (Chronic) Medical History Gastroesophageal reflux disease Hyperlipidemia, unspecified 09/2019 labs: 10-year ASCVD risk = ~0.7% Hypothyroidism Hypertension Resolved s/p bariatric surgery & weight loss; re-started med 02/2020 Chronic constipation Bipolar disorder, unspecified Social phobia, unspecified Moderate, NKHS Chronic pain Cryptogenic sensory polyneuropathy Legs Vitamin D deficiency, unspecified Polycystic ovarian disease Surgical History H/O arthroscopic knee surgery right Status post medial meniscus repair of left knee 10/2021 S/P removal of ovarian cyst H/O exploratory laparotomy 1987 S/P tubal ligation 1992 S/P cholecystectomy 2000 S/P endoscopy 2012 S/P gastric bypass Laparoscopic sleeve Family History Mother Alcohol abuse Depression Diabetes Hypertension Father Alcohol abuse Cancer Heart disease Hypertension Sister Alcohol abuse Depression Hypertension Substance abuse Brother Alcohol abuse Substance abuse Brother No problems noted. Brother Depression Son No problems noted. Daughter Alcohol abuse Depression Substance abuse Social History Smoking/Tobacco Use Status: Former Tobacco Use tobacco type: cigarettes Quit Date: 04/08/12 Pack-years: 25 Tobacco: How many years used: 25 Second Hand Exposure: Yes Smoking risk assessment performed?: Yes Alcohol Intake: current Alcohol Intake frequency: holidays/special occasions only Alcohol type: wine Drug use: Never Substance use type: does not use Counseling given: No Details: alcohol: two years Adopted: Yes Caregiver/Support person: No Foster care: Yes Household members: friend(s) Housing: apartment Number of Children: 2 Communication Needs: Hard of Hearing Education Level: high school Details: GED & Associate's degree in business Do you need help understanding health information?: Never current occupation: Disabled Pets and animals: Yes Pets and animals: cat(s) and dog(s) Sexually active: Yes Do you think of yourself as: straight/heterosexual Current gender identity: female What is your relationship status?: How often do you talk on the phone with friends or family?: three or more times per week How often do you get together with friends or relatives?: once per week How often do you attend congregation or voodoo services?: 1-3 times per year Do you belong to any clubs or organized social groups?: no Panel score (0-1 are the most socially isolated patients): 1 What type of physical activity do you participate in: regular exercise Duration: < 15 minutes/day Frequency: 1-2 times per week Renea/Yazidi: Restorationist Special renea needs: No Seatbelt use: always Helmet use: Yes Helmet use: always Drive intox or ride w/intox 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
[2024-02-17 01:48] LABS: Abs Immature Grans 0.02 10^3/uL (0.0-0.06); Absolute Basophil Count 0.07 10^3/uL (0.0-0.2); Absolute Eosinophil Count 0.11 10^3/uL (0.0-0.7); Absolute Lymphocyte Count 3.04 10^3/uL (1.2-3.4); Absolute Monocyte Count 0.76 10^3/uL (0.1-0.8); Absolute Neutrophil Count 4.28 10^3/uL (1.2-6.7); Basophils % 0.8 %; Eosinophils % 1.3 %; HCT 36.9 % (36.0-46.0); HGB 11.4 g/dL (11.2-15.7); Immature Grans % 0.2 %; Lymphocytes % 36.7 %; MCH 24.5 pg (27.0-33.0); MCHC 30.9 % (32.0-36.0); MCV 79 fL (80-95); MPV 10.9 fL (8.0-11.0); Monocytes % 9.2 %; Neutrophils % 51.8 %; Platelet Count 340 10^3/uL (130-400); RBC 4.66 10^6/uL (3.93-5.22); RDW-SD 43.2 fL; WBC 8.28 10^3/uL (4.4-10.8)
[2024-02-17 02:10] LABS: Calcium 8.2 mg/dL (8.5-10.1)
[2024-02-17 02:11] LABS: Albumin 3.2 g/dL (3.4-5.0); Alkaline Phosphatase 164 U/L (46-116); BUN 22 mg/dL (7-18); Bilirubin, Total 0.19 mg/dL (0.2-1.0); Estimated GFR 67.36 (mL/min/1.73m2); Glucose 135 mg/dL (74-106); Total Protein 7.3 g/dL (6.4-8.2)
[2024-02-17 02:12] LABS: ALT 18 U/L (14-59); AST 16 U/L (15-37); Anion Gap 9.2 mmol/L (3-11); CO2 27.8 mmol/L (21.0-32.0); Chloride 106 mmol/L (98-107); Magnesium 2.1 mg/dL (1.8-2.4); NT-proBNP 32 pg/mL (<300); Potassium 3.9 mmol/L (3.5-5.1); Sodium 143 mmol/L (136-145); Troponin I 7 ng/L (<or=51)
--- NOTE | 2024-02-17 02:30 | DI.RAD_ITS ---
Exam(s) XR CHEST 2V PA LATERAL EXAM: XR CHEST 2V PA LATERAL CLINICAL HISTORY: CP TECHNIQUE: 2D digital imaging was performed. Two views. COMPARISON: CT CT ABDOMEN PELVIS WO from 10/10/2021 CR XR CHEST 1V IN DI DEPT from 10/10/2021 FINDINGS: HEART: Normal size. Aorta: Not dilated. PULMONARY VASCULATURE: Normal. MEDIASTINUM: Unremarkable. LUNGS: Mild linear scarring the left lung base. PLEURAL SPACE: No pleural effusion or pneumothorax. BONE:Unremarkable for age. SOFT TISSUES: Unremarkable. IMPRESSION: No acute abnormality. DATA REPOSITORY: RADIATION DOSE DELIVERED:
[2024-02-17 02:32] LABS: D-Dimer 449 ng/mlFEU (<500)
[2024-02-17 03:03] LABS: Troponin I 4 ng/L (<or=51)
--- NOTE | 2024-02-17 03:11 | DI.VRAD_ITS ---
PROCEDURE INFORMATION: Exam: XR Chest Exam date and time: 02/17/2024 2:54 AM Age: 53 years old Clinical indication: Left-sided; Patient HX: L chest pain TECHNIQUE: Imaging protocol: Radiologic exam of the chest. Views: 2 views. COMPARISON: CR XR CHEST 1V IN DI DEPT 10/10/2021 8:57 AM FINDINGS: Lungs: Minimal atelectasis or scarring at the left lung base. Pleural spaces: No large pleural effusion seen. Heart/Mediastinum: No cardiomegaly. Bones/joints: No acute abnormality. IMPRESSION: No acute findings to explain reported symptoms. Dictated and Authenticated by: Hiral Landaverde MD. Ordering:GAUTAM Caballero MD
== END 2024-02-17 03:21 | disposition home or self-care (01) ==
LOC: ER 03:25
PROVIDERS: Emergency Provider Emergency Medicine; PCP Nurse Practitioner Family
DX: R07.9 Chest pain, unspecified (principal); R06.02 Shortness of breath; E78.5 Hyperlipidemia, unspecified; Z98.84 Bariatric surgery status; Z87.891 Personal history of nicotine dependence
CPT/HCPCS: 36415; 80053; 93005; 99284; 71046; 83735; 83880; 84484; 85025; 85379; 93010; 99283

== ENCOUNTER 2024-02-19 10:55 | Outpatient (CLI) | payer OTHER, MEDICAID, SELFPAY ==
--- NOTE | 2024-02-19 09:58 | DI.RAD_ITS ---
Exam(s) XR KNEE LT 2V AP,LAT EXAM: XR KNEE LT 2V AP,LAT INDICATION: F/U LEFT KNEE UKA. COMPARISON: CR XR KNEE LT 4V AP,LAT,DIANE,PAT from 09/03/2023 TECHNIQUE: 2D digital imaging was performed. Two views. FINDINGS: Stable alignment of medial femoral tibial joint space prosthesis. Lateral femoral tibial joint space is maintained. Mild periarticular spurring. Impression: Stable postsurgical appearance. DATA REPOSITORY: RADIATION DOSE DELIVERED:
== END 2024-02-19 10:56 | disposition home or self-care (01) ==
LOC: DIORS 10:55
PROVIDERS: PCP Nurse Practitioner Family; Referring Provider Nurse Practitioner Family; Visit Provider Student in an Organized Health Care Education/Training Program
DX: M17.12 Unilateral primary osteoarthritis, left knee (principal)
CPT/HCPCS: 73560

== ENCOUNTER 2024-04-02 15:38 | Outpatient (CLI) | payer OTHER, MEDICAID, SELFPAY ==
--- NOTE | 2024-04-02 13:00 | DI.RAD_ITS ---
Exam(s) XR STANDING ALIGNMENT XR KNEE RT 1V EXAM: XR STANDING ALIGNMENT and XR knee RT 1 V CLINICAL HISTORY: RIGHT KNEE PAIN. TECHNIQUE: 2D digital imaging was performed. Five images were obtained. COMPARISON: CR XR STANDING ALIGNMENT from 01/23/2023 CR XR KNEE LT 2V AP,LAT from 02/19/2024 FINDINGS: BONES: The hips are well maintained. There again seen findings of a left knee hemiarthroplasty. In the right knee, there is moderate narrowing of the medial femoral tibial joint. There osteophytes se en at the posterior patella and the medial femoral tibial joint. No significant right joint effusion is seen. The ankles are well maintained.There is no significant leg length discrepancy. SOFT TISSUE: Normal. IMPRESSION: Moderate degenerative changes seen in the right knee, particularly in the medial femoral tibial joint . DATA REPOSITORY: RADIATION DOSE DELIVERED:
== END 2024-04-02 15:39 | disposition home or self-care (01) ==
LOC: DIORS 15:39
PROVIDERS: PCP Nurse Practitioner Family; Visit Provider Physician Assistant
DX: M17.11 Unilateral primary osteoarthritis, right knee (principal)
CPT/HCPCS: 73560; 77073

== ENCOUNTER 2024-04-19 21:42 | Emergency (ER) | payer OTHER, MEDICARE, MEDICAID, SELFPAY ==
[2024-04-19] VITALS (52 sets, daily range): BP systolic 139–178; BP diastolic 77–83; PULSE 60–81; RESP 8–21; TEMP 36.7; O2SAT 95–99
--- NOTE | 2024-04-19 21:30 | RT.EKG_ITS ---
APPROVED REPORT Exam: Resting ECG Reason for Exam: L arm pain, chest burning Patient Location: E HR:71 bpm ECG Measurements Heart Rate 71 AXIS DC 148 P 35 QRSd 90 QRS 33 QT 377 T 49 QTc 411 Conclusion Sinus rhythm, rate 71 No interval abnormalities No STEMI No significant changes from priors
--- NOTE | 2024-04-19 21:45 | DI.RAD_ITS ---
Exam(s) XR CHEST 2V PA LATERAL EXAM: XR CHEST 2V PA LATERAL CLINICAL HISTORY: Chest pain TECHNIQUE: 2D digital imaging was performed. Two views. COMPARISON: CR,XR XR CHEST 2V PA LATERAL from 02/17/2024 FINDINGS: HEART: Normal size. Aorta: Not dilated. PULMONARY VASCULATURE: Normal. MEDIASTINUM: Unremarkable. LUNGS: Clear. PLEURAL SPACE: No pleural effusion or pneumothorax. BONE:Unremarkable for age. SOFT TISSUES: Unremarkable. IMPRESSION: No acute abnormality. DATA REPOSITORY: RADIATION DOSE DELIVERED:
--- NOTE | 2024-04-19 22:02 | ED.GENADUL_ITS ---
Discharge Plan Disposition Patient Disposition: Home Condition: Stable Discharge Details Clinical Impression: Chest pain due to gastrointestinal reflux disease Primary Care Provider: Vasu Brian ED Provider: Latesha Jerez Home Meds and New Rx's Prescriptions: New famotidine [Pepcid] 20 mg tablet 20 mg PO DAILY PRNQty: 30 0RF Rx Instructions: Take as needed for heartburn/acid reflux symptoms in addition to your daily Prilosec No Action venlafaxine [Effexor XR] 150 mg capsule,extended release 24hr 300 mg PO DAILY risperidone [Risperdal] 0.5 mg tablet 0.5 mg PO DAILY golo capsule 1 cap PO TID pregabalin 150 mg capsule 150 mg PO DAILY carbamazepine 200 mg capsule, ER multiphase 12 hr 400 mg PO BID hydrochlorothiazide 12.5 mg tablet 12.5 mg PO DAILY AM Qty: 90 3RF ibuprofen 800 mg tablet 800 mg PO Q8H PRN (Reason: pain) Qty: 90 2RF levothyroxine 100 mcg tablet 100 mcg PO DAILY Qty: 90 3RF Rx Instructions: Administer in the morning on an empty stomach, at least 30-60 minutes before food clobetasol 0.05 % ointment 1 applic topical DAILY 14 Days Qty: 60 2RF Rx Instructions: Apply q am to the entire vulvar area: the labia, especially in the folds, around the vaginal opening, the perineum (the area between the vagina and anus) and around the anus. Use prn sxms omeprazole magnesium 20 mg tablet,delayed release (DR/EC) 20 mg PO DAILY Qty: 90 3RF Patient Comments: pt. unsure if she took today 02/22/23 estradiol 0.01 % (0.1 mg/gram) cream 0.25 g vaginal .twice daily Qty: 42.5 2RF Rx Instructions: Use Nightly x2wks. Then decrease to 2-3x/week. Apply around clitoris, labia, perineum (skin between vagina and anus) and anus. acetaminophen 500 mg tablet 500 mg PO Q6H PRN (Reason: pain) Qty: 60 2RF Discharge Instructions Instructions: Acid reflux and GERD in adults Additional Instructions: You were seen in the emergency department today for evaluation of chest and shoulder pain that felt like burning, concerning for heartburn. In our department a full physical examination performed, had an EKG that was reassuring and 2 negative cardiac enzymes. Your chest x-ray did not show any significant findings that could explain your symptoms. At this time it is safe for you to go home and continue to take all of your home meds as prescribed, including your daily Prilosec. I have also provided you with a medication called famotidine or Pepcid, which you can take daily as needed for ongoing heartburn symptoms. You can also use any [id number] antacids that you prefer such as Tums or Rolaids. Please follow-up with your primary care provider in the next few days to discuss this visit and any symptoms that change, worsen, or persist. Thank you for allowing us to be part of your care. HPI General Mode of arrival: ambulatory . Date/Time Provider Initiated Documentation: 04/19/24 21:46 . Limitations to Documentation: no limitations . Information obtained by: patient, family and old records reviewed . HPI Narrative: HPI: This is a 53-year-old female patient with a past medical history significant for GERD, presenting for evaluation of chest and left arm pain. The patient reports that she was at rest this evening, had a sudden onset of discomfort in her left shoulder in the center of her chest that felt like burning. She reports that the pain in her arm has subsided completely, and she now just has a heartburn-like sensation in the center of her chest, associated with some nausea but no vomiting. She has never had symptoms this severe before, has no personal cardiac history, and denies recent fevers or chills, shortness of breath, cough, or abdominal pain. She reports that her pain is not worsened with movement, position, or deep breath. She did not try any medications prior to arrival at our facility. Exam: Gen: Awake and alert, in no apparent distress HEENT: Non-icteric sclera Neck: Supple Lungs: No apparent respiratory distress, normal respiratory effort. Lung sounds clear and equal bilaterally CV: Appears well perfused, heart with regular rate and rhythm, strong distal pulses, chest wall without significant tenderness to palpation, though she does endorse some discomfort with palpation over her left shoulder. Abdomen: Non-distended, soft, nontender MSK: Moves 4 extremities without apparent limitation in ROM Skin: Visualized skin without rashes, cyanosis. Neuro: Normal Gait, no obvious focal deficits or facial asymmetry. Speaks in full, clear sentences. Psych: Appropriate for situation. MDM: This is a 53-year-old female patient presenting for evaluation of chest pain and shoulder pain. Differential includes but is not limited to ACS including STEMI, NSTEMI, unstable angina, certainly considered GERD, peptic ulcer disease, esophagitis. No vomiting to suggest Boerhaave's. Considered pericarditis and myocarditis, aortic pathology, no significant pulmonary findings to suggest pneumonia, bronchitis, viral URI, pulmonary edema, pleural effusion, or pneumothorax. We obtained an EKG which was nonischemic, showing normal sinus rhythm without interval abnormality or ectopy. I will obtain laboratory studies to include CBC, CMP, magnesium, troponin, and will provide the patient with a dose of aspirin as well as Zofran for initial management of her nausea. ED Course: I independently interpreted the laboratory studies, which show no significant leukocytosis, anemia, or thrombocytopenia. The chemistry panel is without evidence of electrolyte abnormality, kidney dysfunction, or liver i njury. The patient's initial troponin was negative, lipase is low. She reports ongoing burning sensation in her chest for which I provided her with a dose of Pepcid and Mylanta. The patient reports significant improvement in her symptoms after these medications were administered. Her delta troponin showed no interval change and remained negative, making ACS less likely. The patient already takes Prilosec daily, I provided her with a prescription for famotidine which she can use as needed for persistent symptoms, and recommended follow-up with her outpatient providers for reassessment. At this time, the patient has had a full medical evaluation and is safe for discharge to home. They are hemodynamically stable, ambulatory, and tolerating PO. They are understanding of the follow-up plan and return precautions. They left our facility without incident. Latesha Jerez MD Related Data Home Medications ?Medication ?Instructions ?Recorded ?Confirmed venlafaxine 150 mg 300 mg PO DAILY 04/15/19 04/19/24 capsule,extended release 24 hr (Effexor XR) carbamazepine 200 mg 400 mg PO BID 02/25/20 04/19/24 capsule,extended release [id number] risperidone 0.5 mg tablet 0.5 mg PO DAILY 01/19/22 04/19/24 (Risperdal) acetaminophen 500 mg tablet 500 mg PO Q6H PRN pain #60 tabs 04/03/22 04/19/24 golo 1 cap PO TID 12/27/22 04/02/24 hydrochlorothiazide 12.5 mg tablet 12.5 mg PO DAILY AM #90 tab-caps 11/28/23 04/19/24 ibuprofen 800 mg tablet 800 mg PO Q8H PRN pain #90 tabs 11/28/23 04/19/24 levothyroxine 100 mcg tablet 100 mcg PO DAILY #90 tab-caps 11/28/23 04/19/24 clobetasol 0.05 % topical ointment 1 applic topical DAILY 2 weeks #60 12/02/23 04/19/24 grams omeprazole magnesium 20 mg 20 mg PO DAILY #90 tabs 12/04/23 04/19/24 tablet,delayed release pregabalin 150 mg capsule 150 mg PO DAILY 02/17/24 04/19/24 estradiol 0.01% (0.1 mg/gram) 0.25 g vaginal .twice daily #42.5 02/24/24 04/19/24 vaginal cream grams famotidine 20 mg tablet (Pepcid) 20 mg PO DAILY PRN #30 tabs 04/19/24 Previous Rx's ?Medication ?Instructions ?Recorded acetaminophen 500 mg tablet 500 mg PO Q6H PRN pain #60 tabs 04/03/22 hydrochlorothiazide 12.5 mg tablet 12.5 mg PO DAILY AM #90 tab-caps 11/28/23 ibuprofen 800 mg tablet 800 mg PO Q8H PRN pain #90 tabs 11/28/23 levothyroxine 100 mcg tablet 100 mcg PO DAILY #90 tab-caps 11/28/23 clobetasol 0.05 % topical ointment 1 applic topical DAILY 2 weeks #60 12/02/23 grams omeprazole magnesium 20 mg 20 mg PO DAILY #90 tabs 12/04/23 tablet,delayed release estradiol 0.01% (0.1 mg/gram) 0.25 g vaginal .twice daily #42.5 02/24/24 vaginal cream grams famotidine 20 mg tablet (Pepcid) 20 mg PO DAILY PRN #30 tabs 04/19/24 Allergies Allergy/AdvReac Type Severity Reaction Status Date / Time gabapentin AdvReac Mild makes her Verified 04/19/24 21:50 feel drunk sumatriptan (From Imitrex) AdvReac Other (See Verified 04/19/24 21:50 Comment) General Stated Complaint: Chest Pain PEACE: 3 Course Vital Signs Vital signs: Vital Signs Pulse 81 04/19/24 21:45 Respiratory Rate 16 04/19/24 21:45 Blood Pressure 178/80 H 04/19/24 21:45 Pulse Oximetry 98 04/19/24 21:45 Pulse 81 04/19/24 21:45 Respiratory Rate 16 04/19/24 21:45 Blood Pressure 178/80 H 04/19/24 21:45 Pulse Oximetry 98 04/19/24 21:45 Pain Level 0 04/19/24 21:45 Medical Decision Making Quality:SDOH Health Related Social Needs: No Data to Display PFSH All Active Problems (Updated 04/19/24 @ 23:38 by Latesha Jerez MD) Chest pain due to gastrointestinal reflux disease (Acute) Osteoarthritis of right knee (Acute) Internal derangement of right knee (Acute) Pes anserinus bursitis of both knees (Acute) Spondylosis without myelopathy or radiculopathy, cervical region (Acute) Cervicalgia (Acute) Plantar fasciitis (Acute) Insomnia (Acute) Urinary incontinence (Acute) Back pain (Acute) Heel spur (Acute) Impingement syndrome of right shoulder (Acute) Impingement syndrome of left shoulder (Acute) Postmenopausal bleeding (Acute) spotting x4 days August 2023 - sono with thin endo stript. Needs endo bx if recurrent bleeding. Lichen sclerosus (Acute) Arthritis of knee, left (Acute) s/p Left medial unicondylar knee replacement 02/22/23 Obesity (Chronic) Medical History Gastroesophageal reflux disease Hyperlipidemia, unspecified 09/2019 labs: 10-year ASCVD risk = ~0.7% Hypothyroidism Hypertension Resolved s/p bariatric surgery & weight loss; re-started med 02/2020 Chronic constipation Bipolar disorder, unspecified Social phobia, unspecified Moderate, NKHS Chronic pain Cryptogenic sensory polyneuropathy Legs Vitamin D deficiency, unspecified Polycystic ovarian disease Surgical History H/O arthroscopic knee surgery right Status post medial meniscus repair of left knee 10/2021 S/P removal of ovarian cyst H/O exploratory laparotomy 1987 S/P tubal ligation 1992 S/P cholecystectomy 2000 S/P endoscopy 2012 S/P gastric bypass Laparoscopic sleeve Family History Mother Alcohol abuse Depression Diabetes Hypertension Father Alcohol abuse Cancer Heart disease Hypertension Sister Alcohol abuse Depression Hypertension Substance abuse Brother Alcohol abuse Substance abuse Brother No problems noted. Brother Depression Son No problems noted. Daughter Alcohol abuse Depression Substance abuse Social History Smoking/Tobacco Use Status: Former Tobacco Use tobacco type: cigarettes Quit Date: 04/08/12 Pack-years: 25 Tobacco: How many years used: 25 Second Hand Exposure: Yes Smoking risk assessment performed?: Yes Alcohol Intake: current Alcohol Intake frequency: holidays/special occasions only Alcohol type: wine Drug use: Never Substance use type: does not use Counseling given: No Details: alcohol: two years Adopted: Yes Caregiver/Support person: No Foster care: Yes Household members: friend(s) Housing: apartment Number of Children: 2 Communication Needs: Hard of Hearing Education Level: high school Details: GED & Associate's degree in business Do you need help understanding health information?: Never current occupation: Disabled Pets and animals: Yes Pets and animals: cat(s) and dog(s) Sexually active: Yes Do you think of yourself as: straight/heterosexual Current gender identity: female What is your relationship status?: How often do you talk on the phone with friends or family?: three or more times per week How often do you get together with friends or relatives?: once per week How often do you attend lutheran or synagogue services?: 1-3 times per year Do you belong to any clubs or organized social groups?: no Panel score (0-1 are the most socially isolated patients): 1 What type of physical activity do you participate in: regular exercise Duration: < 15 minutes/day Frequency: 1-2 times per week Renea/Oriental Orthodox: Christian Special renea needs: No Seatbelt use: always Helmet use: Yes Helmet use: always Drive intox or ride w/intox pharmacy delivery driver: No Do you feel safe at home: Yes Do you feel safe in your relationship?: Yes Female Reproductive History Menstrual control method: permanent sterilization History History 3 Para 2 Hx # Term Pregnancies Multiple births Hx # Pregnancies Ectopic pregnancies AB induced Hx Number of Living Children AB spontaneous
[2024-04-19 22:09] LABS: Abs Immature Grans 0.02 10^3/uL (0.0-0.06); Absolute Basophil Count 0.07 10^3/uL (0.0-0.2); Absolute Eosinophil Count 0.08 10^3/uL (0.0-0.7); Absolute Lymphocyte Count 3.07 10^3/uL (1.2-3.4); Absolute Monocyte Count 0.91 10^3/uL (0.1-0.8); Absolute Neutrophil Count 4.48 10^3/uL (1.2-6.7); Basophils % 0.8 %; Eosinophils % 0.9 %; HCT 38.6 % (36.0-46.0); Immature Grans % 0.2 %; Lymphocytes % 35.6 %; MCH 24.3 pg (27.0-33.0); MCHC 31.1 % (32.0-36.0); MCV 78 fL (80-95); MPV 10.3 fL (8.0-11.0); Monocytes % 10.5 %; Platelet Count 316 10^3/uL (130-400); RBC 4.93 10^6/uL (3.93-5.22); RDW 15.9 % (11.7-14.6); RDW-SD 45.2 fL; WBC 8.63 10^3/uL (4.4-10.8)
[2024-04-19] MEDS: Aspirin 81 MG CHEW 324 MG CH (22:18)
[2024-04-19] MEDS: Ondansetron 4 MG/2 ML VIAL IVP (22:18)
[2024-04-19 22:26] LABS: ALT 20 U/L (14-59); AST 18 U/L (15-37); Albumin 3.5 g/dL (3.4-5.0); Alkaline Phosphatase 162 U/L (46-116); Anion Gap 5.9 mmol/L (3-11); BUN 21 mg/dL (7-18); Bilirubin, Total 0.22 mg/dL (0.2-1.0); CO2 34.1 mmol/L (21.0-32.0); Chloride 101 mmol/L (98-107); Estimated GFR 67.36 (mL/min/1.73m2); Glucose 103 mg/dL (74-106); Lipase 40 U/L (<78); Magnesium 2.1 mg/dL (1.8-2.4); Potassium 3.5 mmol/L (3.5-5.1); Sodium 141 mmol/L (136-145); Total Protein 7.8 g/dL (6.4-8.2); Troponin I 6 ng/L (<or=51)
[2024-04-19] MEDS: Mylanta Suspension 30 ML CUP PO (23:01)
[2024-04-19] MEDS: Famotidine 20 MG/2 ML VIAL IVP (23:01)
--- NOTE | 2024-04-19 23:22 | DI.VRAD_ITS ---
PROCEDURE INFORMATION: Exam: XR Chest Exam date and time: 04/19/2024 10:29 PM Age: 53 years old Clinical indication: Left-sided and other: Left arm pain, heart burn; Patient HX: Chest pain; Per PT: L arm pain with heartburn TECHNIQUE: Imaging protocol: Radiologic exam of the chest. Views: 2 views. COMPARISON: CR XR CHEST 2V PA LATERAL 02/17/2024 2:54 AM FINDINGS: Lungs: Left basilar subsegmental atelectatic changes. Pleural spaces: Unremarkable. No pleural effusion. No pneumothorax. Heart/Mediastinum: Unremarkable. No cardiomegaly. Bones/joints: Unremarkable. IMPRESSION: Left basilar subsegmental atelectasis. Dictated and Authenticated by: Armin Silver MD. Ordering:ARIANA Fontanez MD
[2024-04-19 23:27] LABS: Troponin I 6 ng/L (<or=51)
== END 2024-04-19 23:49 | disposition home or self-care (01) ==
PROVIDERS: Emergency Provider Emergency Medicine; PCP Nurse Practitioner Family
DX: M25.512 Pain in left shoulder (principal); R07.9 Chest pain, unspecified; K21.9 Gastro-esophageal reflux disease without esophagitis; E78.5 Hyperlipidemia, unspecified; I10 Essential (primary) hypertension; E03.9 Hypothyroidism, unspecified; Z98.84 Bariatric surgery status; Z87.891 Personal history of nicotine dependence
CPT/HCPCS: 36415; 80053; 83690; 93005; 96374; 96375; 99285; 71046; 83735; 84484; 85025; 93010; 99284; J2405

== ENCOUNTER 2024-04-21 01:55 | Outpatient (CLI) | payer OTHER, MEDICARE, MEDICAID, SELFPAY ==
--- NOTE | 2024-04-21 06:30 | DI.MRI_ITS ---
Exam(s) MR LOWER JOINT RT WO EXAM: MR LOWER JOINT RT WO CLINICAL HISTORY: R KNEE PAIN,INTERNAL DERANGEMENT, M23.91. TECHNIQUE: Multiplanar multisequence MRI was performed. COMPARISON: MR MR LOWER JOINT RT WO from 12/28/2022 CR XR KNEE RT 1V from 04/02/2024 CR XR STANDING ALIGNMENT from 04/02/2024 FINDINGS: BONES: There is no fracture or contusion pattern. Degenerative signal changes periarticular spurrin g in the medial femoral condyle and medial tibial plateau. JOINTS: A moderate-sized joint effusion is present. Articular cartilage: Patellofemoral joint: Tiny focal defect at apex. A similar to prior. Medial femoral tibial joint: Shows diffuse thinning, similar to prior. Lateral femoral tibial joint: Articular cartilage is unremarkable. LIGAMENTS/TENDONS: Anterior Cruciate: Unremarkable. Posterior Cruciate: Unremarkable. Medial Collateral:Unremarkable. Lateral Collateral ligament complex: Unremarkable. Extensor mechanism: Unremarkable. Medial retinaculum: Unremarkable. Lateral retinaculum: Unremarkable. Popliteus: Unremarkable. MENISCI: The medial meniscus shows a large tear at the root, unchanged from prior. Mild intrasubstance signal changes consistent with degeneration. The lateral meniscus is unremarkable. MUSCLES: Unremarkable. SOFT TISSUES: Mild anterior edema. IMPRESSION: Degenerative changes of the medial femoral tibial joint and medial meniscus. Tear at the root of the posterior horn of medial meniscus, similar to prior exam. DATA REPOSITORY:
== END 2024-04-21 02:15 ==
LOC: DI 01:56
PROVIDERS: PCP Nurse Practitioner Family; Visit Provider Student in an Organized Health Care Education/Training Program
DX: M23.91 Unspecified internal derangement of right knee (principal)
CPT/HCPCS: 73721

== ENCOUNTER 2024-12-30 17:04 | Outpatient (REF) | payer OTHER, SELFPAY ==
[2024-12-30 16:00] LABS: Abs Immature Grans 0.01 10^3/uL (0.0-0.06); HCT 37.3 % (36.0-46.0); HGB 11.5 g/dL (11.2-15.7); Immature Grans % 0.2 %; MCH 23.9 pg (27.0-33.0); MCHC 30.8 % (32.0-36.0); MCV 78 fL (80-95); MPV 11.1 fL (8.0-11.0); Platelet Count 342 10^3/uL (130-400); RBC 4.81 10^6/uL (3.93-5.22); RDW 14.8 % (11.7-14.6); RDW-SD 41.4 fL; WBC 6.14 10^3/uL (4.4-10.8)
[2024-12-30 16:35] LABS: Hemoglobin A1C 6.7 % (<5.7)
[2024-12-30 16:53] LABS: ALT 21 U/L (14-59); AST 21 U/L (15-37); Albumin 3.8 g/dL (3.4-5.0); Alkaline Phosphatase 158 U/L (46-116); Anion Gap 10.8 mmol/L (3-11); BUN 15 mg/dL (7-18); Bilirubin, Total 0.2 mg/dL (0.2-1.0); CO2 27.2 mmol/L (21.0-32.0); Calcium 9.2 mg/dL (8.5-10.1); Calculated LDL 138 mg/dL (<100); Chloride 100 mmol/L (98-107); Cholesterol 237 mg/dL (<200); Estimated GFR 87.50 (mL/min/1.73m2); Folate 4.1 ng/mL (8.6-20.0); Glucose 131 mg/dL (74-106); HDL Cholesterol 83 mg/dL (>or=50); Potassium 3.7 mmol/L (3.5-5.1); Sodium 138 mmol/L (136-145); TSH 0.73 uIU/mL (0.36-3.74); Total Protein 7.3 g/dL (6.4-8.2); Triglyceride 80 mg/dL (<150); Vitamin B12 395 pg/mL (193-986); Vitamin D 25 Total 25 ng/mL (30-100)
== END 2024-12-30 17:05 | disposition home or self-care (01) ==
LOC: NCHCN 17:04
PROVIDERS: PCP Nurse Practitioner Family; Visit Provider Family Medicine
DX: E03.9 Hypothyroidism, unspecified (principal); Z76.89 Persons encountering health services in other specified circumstances; Z98.84 Bariatric surgery status; Z13.220 Encounter for screening for lipoid disorders; Z13.1 Encounter for screening for diabetes mellitus
CPT/HCPCS: 80053; 80061; 82306; 82607; 82746; 83036; 84439; 84443; 85025

== ENCOUNTER 2025-01-15 03:10 | Outpatient (CLI) | payer OTHER, MEDICARE, SELFPAY ==
--- NOTE | 2025-01-15 | DI.MAMMO_ITS ---
Exam(s) MAMMO SCREENING EXAM: MAMMO SCREENING CLINICAL HISTORY: SCREENING, Z12.31 TECHNIQUE: Bilateral full field digital CC and MLO mammographic images were obtained with 3D tomosynthesis and utilizing computer aided detection (CAD). COMPARISON: Comparison is made with prior examinations. FINDINGS: Masses/Architectural Distortion: No suspicious masses or areas of architectural distortion are present. There is stable area of nodularity in the outer right breast. Microcalcifications: No suspicious pleomorphic-type are seen. Skin Thickening/Nipple Retraction: None. IMPRESSION: 1. No significant interval change with no specific features of malignancy noted. 2. Unless there is more urgent need, screening mammography is recommended, as per [place] [employer] guidelines. BI-RADS Category 2 - Benign Findings Breast Density - Category B - There are scattered areas of fibroglandular density. Breast density Category C or D implies that the patient has dense breast tissue. Dense breast tissue can make it harder to find cancer on a mammogram. Dense breast tissue is also associated with an increased risk of breast cancer. This information about the result of the mammogram report was provided to the patient to raise their awareness. Use this report when you speak with the patient about their risks for breast cancer, which includes their family history. At that time, you may recommend additional screening tests (Ultrasound or MRI) as these tests may add significant information. A negative radiographic report should not delay biopsy if a dominant or clinically suspicious mass is present. Up to ten percent of cancers are not identified on mammography. A negative report may reinforce clinical impression. Adenosis and dense breasts may obscure an underlying neoplasm. False positive reports average 6 to 10%. Patient will receive a letter notifying them of these results.
== END 2025-01-15 03:30 ==
PROVIDERS: PCP Nurse Practitioner Family; Visit Provider Family Medicine
DX: Z12.31 Encounter for screening mammogram for malignant neoplasm of breast (principal)
CPT/HCPCS: 77063; 77067

== ENCOUNTER 2025-03-02 15:00 | Emergency (ER) | payer OTHER, MEDICARE, SELFPAY ==
[2025-03-02 15:13] VITALS: BP 139/85; PULSE 96; RESP 18; TEMP 36.5; O2SAT 95
--- NOTE | 2025-03-02 15:30 | W.ED.GENAD ---
Discharge Plan Disposition Patient Disposition: Home Condition: Stable Discharge Details Clinical Impression: Laceration of left hand Primary Care Provider: Vasu Brian ED Provider: Bcuk Robertson Home Meds and New Rx's Prescriptions: Continued venlafaxine [Effexor XR] 150 mg capsule,extended release 24hr 300 mg PO DAILY risperidone [Risperdal] 0.5 mg tablet 0.5 mg PO DAILY golo capsule 1 cap PO TID pregabalin 150 mg capsule 150 mg PO DAILY trazodone 100 mg tablet 100 mg PO QHS hydrochlorothiazide 12.5 mg tablet 12.5 mg PO DAILY AM Qty: 90 3RF ibuprofen 800 mg tablet 800 mg PO Q8H PRN (Reason: pain) Qty: 90 2RF levothyroxine 100 mcg tablet 100 mcg PO DAILY Qty: 90 3RF Rx Instructions: Administer in the morning on an empty stomach, at least 30-60 minutes before food omeprazole magnesium 20 mg tablet,delayed release (DR/EC) 20 mg PO DAILY Qty: 90 3RF Patient Comments: pt. unsure if she took today 02/22/23 carbamazepine 200 mg capsule, ER multiphase 12 hr 400 mg PO BID clobetasol 0.05 % ointment 1 applic topical DAILY 14 Days Qty: 60 2RF Rx Instructions: Apply q am to the entire vulvar area: the labia, especially in the folds, around the vaginal opening, the perineum (the area between the vagina and anus) and around the anus. Use prn sxms estradiol 0.01 % (0.1 mg/gram) cream 0.25 g vaginal .twice daily Qty: 42.5 2RF Rx Instructions: Use Nightly x2wks. Then decrease to 2-3x/week. Apply around clitoris, labia, perineum (skin between vagina and anus) and anus. acetaminophen 500 mg tablet 500 mg PO Q6H PRN (Reason: pain) Qty: 60 2RF famotidine [Pepcid] 20 mg tablet 20 mg PO DAILY PRNQty: 30 0RF Rx Instructions: Take as needed for heartburn/acid reflux symptoms in addition to your daily Prilosec Discharge Instructions Instructions: Laceration Repair With Glue ED Additional Instructions: If you have signs of infection such as spreading redness down the finger or severe pain return to the emergency department for reevaluation. Stand Alone Forms: Portal Information HPI General Mode of arrival: ambulatory. Date/Time Provider Initiated Documentation: 03/02/25 15:19. Limitations to Documentation: no limitations. Information obtained by: patient. History of Present Illness 54 year old F presents to the emergency department with the chief complaint of left index finger cut, described as mild, Quality is described as aching, Patient started experiencing this hour(s) (1) and it has been constant. No relieving factors improve symptom(s), No exacerbating factors reported . Patient notes no other symptoms.. Patient did receive the following treatments prior to arrival, none Related Data Home Medications Medication Instructions Recorded Confirmed venlafaxine 150 mg 300 mg PO DAILY 04/15/19 03/02/25 capsule,extended release 24 hr (Effexor XR) carbamazepine 200 mg 400 mg PO BID 02/25/20 03/02/25 capsule,extended release [id number] risperidone 0.5 mg tablet 0.5 mg PO DAILY 01/19/22 03/02/25 (Risperdal) acetaminophen 500 mg tablet 500 mg PO Q6H PRN pain #60 tabs 04/03/22 03/02/25 golo 1 cap PO TID 12/27/22 03/02/25 clobetasol 0.05 % topical ointment 1 applic topical DAILY 2 weeks #60 12/02/23 03/02/25 grams pregabalin 150 mg capsule 150 mg PO DAILY 02/17/24 03/02/25 estradiol 0.01% (0.1 mg/gram) 0.25 g vaginal .twice daily #42.5 02/24/24 03/02/25 vaginal cream grams famotidine 20 mg tablet (Pepcid) 20 mg PO DAILY PRN #30 tabs 04/19/24 03/02/25 hydrochlorothiazide 12.5 mg tablet 12.5 mg PO DAILY AM #90 tab-caps 11/05/24 03/02/25 ibuprofen 800 mg tablet 800 mg PO Q8H PRN pain #90 tabs 11/05/24 03/02/25 levothyroxine 100 mcg tablet 100 mcg PO DAILY #90 tab-caps 11/05/24 03/02/25 omeprazole magnesium 20 mg 20 mg PO DAILY #90 tabs 07/31/25 11/25/25 tablet,delayed release trazodone 100 mg tablet 100 mg PO QHS 11/05/24 03/02/25 Previous Rx's Medication Instructions Recorded acetaminophen 500 mg tablet 500 mg PO Q6H PRN pain #60 tabs 04/03/22 clobetasol 0.05 % topical ointment 1 applic topical DAILY 2 weeks #60 12/02/23 grams estradiol 0.01% (0.1 mg/gram) 0.25 g vaginal .twice daily #42.5 02/24/24 vaginal cream grams famotidine 20 mg tablet (Pepcid) 20 mg PO DAILY PRN #30 tabs 04/19/24 hydrochlorothiazide 12.5 mg tablet 12.5 mg PO DAILY AM #90 tab-caps 11/05/24 ibuprofen 800 mg tablet 800 mg PO Q8H PRN pain #90 tabs 11/05/24 levothyroxine 100 mcg tablet 100 mcg PO DAILY #90 tab-caps 11/05/24 omeprazole magnesium 20 mg 20 mg PO DAILY #90 tabs 11/05/24 tablet,delayed release Allergies Allergy/AdvReac Type Severity Reaction Status Date / Time gabapentin AdvReac Mild makes her Verified 03/02/25 15:16 feel drunk sumatriptan (From Imitrex) AdvReac Other (See Verified 03/02/25 15:16 Comment) General Stated Complaint: Laceration PEACE: 4 Review of Systems All systems reviewed & are unremarkable except as noted in HPI and below Constitutional Constitutional: Denies chills, Denies fever(s) and Denies weakness Cardiovascular Cardiovascular: Denies chest pain Gastrointestinal Gastrointestinal: Denies vomiting Neurologic Neurologic: Denies weakness Exam Const General: no acute distress Orientation: alert [facility] Head: normal to inspection Ears: external ears normal General nose exam: external nose normal Mouth: moist mucous membranes Eyes General: appearance normal, both eyes and all related structures Neck Neck: normal visual inspection Resp Effort & Inspection: normal respiratory effort and able to speak in complete sentences Cardio Rate: regular rate Neuro General: patient alert and patient oriented x3 Extrem General: full ROM and capillary refill normal Psych Mental Status: mental status grossly normal Course Vital Signs Vital signs: Vital Signs Temperature 36.5 C 03/02/25 15:13 Pulse 96 H 03/02/25 15:13 Respiratory Rate 18 03/02/25 15:13 Blood Pressure 139/85 03/02/25 15:13 Pulse Oximetry 95 03/02/25 15:13 Temperature 36.5 C 03/02/25 15:13 Temperature Source Oral 03/02/25 15:13 Pulse 96 H 03/02/25 15:13 Respiratory Rate 18 03/02/25 15:13 Blood Pressure 139/85 03/02/25 15:13 Blood Pressure Position Sitting 03/02/25 15:13 Pulse Oximetry 95 03/02/25 15:13 Pain Level 7 03/02/25 15:13 Procedure Laceration Laceration 1: Patient Consented: Verbally Site: hand Side (If applicable): left Description: flap Depth: simple, single layer Pre-repair:: wound explored and irrigated extensively Skin layer closed with: other (skin adhesive) Medical Decision Making 54-year-old female comes in after she was cutting some butter when the knife slipped and cut her left index finger. She did not fall or sustain other injuries. She has a superficial V-shaped laceration approximately 2 cm in length over the distal radial surface of the left index finger. No bone exposure. She has full range of motion at all joints and intact cap refill and sensation. Given how superficial the wound is I feel it can be managed with skin adhesive. Given lack of bony tenderness and no falls I do not feel x-rays are indicated as I do not suspect fracture and there's no palpable foreign bodies. Wound was irrigated and cleaned, skin adhesive was placed with no complications. She is stable for discharge, return precautions given. Differential Diagnosis Differential Diagnosis: Laceration, abrasion, skin tear PFSH All Active Problems (Updated 03/02/25 @ 15:41 by Buck Robertson MD) Laceration of left hand (Acute) Low back pain (Acute) Osteoarthritis of right knee (Acute) Internal derangement of right knee (Acute) Pes anserinus bursitis of both knees (Acute) Spondylosis without myelopathy or radiculopathy, cervical region (Acute) Cervicalgia (Acute) Plantar fasciitis (Acute) Insomnia (Acute) Urinary incontinence (Acute) Back pain (Acute) Heel spur (Acute) Impingement syndrome of right shoulder (Acute) Impingement syndrome of left shoulder (Acute) Postmenopausal bleeding (Acute) spotting x4 days August 2023 - sono with thin endo stript. Needs endo bx if recurrent bleeding. Lichen sclerosus (Acute) Arthritis of knee, left (Acute) s/p Left medial unicondylar knee replacement 02/22/23 Obesity (Chronic) Medical History Gastroesophageal reflux disease Hyperlipidemia, unspecified 09/2019 labs: 10-year ASCVD risk = ~0.7% Hypothyroidism Hypertension Resolved s/p bariatric surgery & weight loss; re-started med 02/2020 Chronic constipation Bipolar disorder, unspecified Social phobia, unspecified Moderate, NKHS Chronic pain Cryptogenic sensory polyneuropathy Legs Vitamin D deficiency, unspecified Polycystic ovarian disease Surgical History H/O arthroscopic knee surgery right Status post medial meniscus repair of left knee 10/2021 S/P removal of ovarian cyst H/O exploratory laparotomy 1987 S/P tubal ligation 1992 S/P cholecystectomy 2000 S/P endoscopy 2012 S/P gastric bypass Laparoscopic sleeve Family History Mother Alcohol abuse Depression Diabetes Hypertension Father Alcohol abuse Cancer Heart disease Hypertension Sister Alcohol abuse Depression Hypertension Substance abuse Brother Alcohol abuse Substance abuse Brother No problems noted. Brother Depression Son No problems noted. Daughter Alcohol abuse Depression Substance abuse Social History Smoking/Tobacco Use Status: Former Tobacco Use tobacco type: cigarettes Quit Date: 04/08/12 Pack-years: 25 Tobacco: How many years used: 25 Second Hand Exposure: Yes Smoking risk assessment performed?: Yes Alcohol Intake: former Drug use: Never Substance use type: does not use Counseling given: No Details: alcohol: two years Adopted: Yes Caregiver/Support person: No Foster care: Yes Household members: friend(s) Housing: apartment Number of Children: 2 Communication Needs: Hard of Hearing Education Level: high school Details: GED & Associate's degree in business Do you need help understanding health information?: Never current occupation: Disabled Pets and animals: Yes Pets and animals: cat(s) and dog(s) Sexually active: Yes Do you think of yourself as: straight/heterosexual Current gender identity: female What is your relationship status?: How often do you talk on the phone with friends or family?: three or more times per week How often do you get together with friends or relatives?: once per week How often do you attend roman catholic or holiness services?: 1-3 times per year Do you belong to any clubs or organized social groups?: no Panel score (0-1 are the most socially isolated patients): 1 What type of physical activity do you participate in: regular exercise Duration: < 15 minutes/day Frequency: 1-2 times per week Renea/Druze: Taoism Special renea needs: No Seatbelt use: always Helmet use: Yes Helmet use: always Drive intox or ride w/intox trailer tank truck driver: No Do you feel safe at home: Yes Do you feel safe in your relationship?: Yes Female Reproductive History Menstrual control method: permanent sterilization History History 3 Para 2 Hx # Term Pregnancies Multiple births Hx # Pregnancies Ectopic pregnancies AB induced Hx Number of Living Children AB spontaneous
[2025-03-02] MEDS: Ibuprofen 400 MG TAB PO (15:42)
== END 2025-03-02 15:54 | disposition home or self-care (01) ==
PROVIDERS: Emergency Provider Emergency Medicine; PCP Nurse Practitioner Family
DX: S61.412A Laceration without foreign body of left hand, initial encounter (principal); W26.0XXA Contact with knife, initial encounter
CPT/HCPCS: 12001